=== PATIENT | male | born 1945 | race Caucasian/White ===

== ENCOUNTER 2020-12-13 04:26 | Inpatient (IN) | payer MEDICARE, SELFPAY ==
[2020-12-13] VITALS (15 sets, daily range): BP systolic 146–202; BP diastolic 73–110; PULSE 76–99; RESP 16–18; TEMP 36.7–37.1; O2SAT 96–99; BMI 30.6
--- NOTE | 2020-12-13 04:34 | XRR_ITS ---
PROCEDURE INFORMATION: Exam: XR Right Ankle Exam date and time: 12/13/2020 4:37 AM Age: 75 years old Clinical indication: Injury or trauma; Fall; Blunt trauma; Ankle; Right; Injury date: [id number] TECHNIQUE: Imaging protocol: XR Right ankle. Views: 3 or more views. COMPARISON: No relevant prior studies available. FINDINGS: Bones/joints: There is a trimalleolar fracture with mild lateral and medial component displacement. Soft tissues: There is diffuse soft tissue swelling. XR/XR ankle RT min 3V* [id number] IMPRESSION: Trimalleolar fracture.
--- NOTE | 2020-12-13 04:40 | CTR_ITS ---
PROCEDURE INFORMATION: Exam: CT Head Without Contrast Exam date and time: 12/13/2020 5:23 AM Age: 75 years old Clinical indication: Walking, difficulty and other: Weakness; Additional info: Fall TECHNIQUE: Imaging protocol: Computed tomography of the head without contrast. Radiation optimization: All CT scans at this facility use at least one of these dose optimization techniques: automated exposure control; mA and/or kV adjustment per patient size (includes targeted exams where dose is matched to clinical indication); or iterative reconstruction. COMPARISON: No relevant prior studies available. RADIATION DOSE METRICS: Total DLP (mGy-cm): 889.52 FINDINGS: Brain: There is no acute intracranial hemorrhage or mass effect. Mild diffuse volume loss is within the range of normal for patient age. There are small vessel ischemic changes within the periventricular and subcortical white matter, but the normal mancilla/white matter delineation is maintained. Chronic lacunar infarcts involve the basal ganglia. Cerebral ventricles: Prominence of the ventricular system is commensurate with volume loss. Bones/joints: Unremarkable. No acute fracture. Paranasal sinuses: Visualized sinuses are unremarkable. No fluid levels. Mastoid air cells: Visualized mastoid air cells are well aerated. Soft tissues: Unremarkable. CT/CT head wo con* [id number] IMPRESSION: No acute hemorrhage or calvarial fracture. Radiation Dose CTDIVOL = (mGy): DLP = 889.52 (mGy-cm)
--- NOTE | 2020-12-13 04:40 | XRR_ITS ---
PROCEDURE INFORMATION: Exam: XR Chest Exam date and time: 12/13/2020 5:23 AM Age: 75 years old Clinical indication: Chest pain; Type not specified; Additional info: Cp TECHNIQUE: Imaging protocol: XR of the chest Views: 1 view. COMPARISON: No relevant prior studies available. FINDINGS: Lungs: Unremarkable. No consolidation. Pleural spaces: Unremarkable. No pleural effusion. No pneumothorax. Heart/Mediastinum: There is mild cardiomegaly. Bones/joints: Unremarkable. XR/XR chest 1V portable [id number] IMPRESSION: No acute abnormality.
--- NOTE | 2020-12-13 04:41 | ECG_ITS ---
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1945 Requested By: Tonny Vick Order Number: [id number] Reading MD: MICHAEL RODRIGES Measurements Intervals Scalf Rate: 101 P: -36 KS: 252 QRS: 0 QRSD: 97 T: 61 QT: 336 QTc: 435 Interpretive Statements SINUS TACHYCARDIA WITH FIRST DEGREE AV BLOCK POSSIBLE LEFT ATRIAL ENLARGEMENT [-0.1mV P WAVE IN V1/V2] SEPTAL MYOCARDIAL INFARCTION , OF INDETERMINATE AGE [40+ ms Q WAVE IN V1/V2] No previous ECG available for comparison Electronically Signed On 12-13-2020 19:58:40 ANALYTICAL TECH by MICHAEL RODRIGES [email or web address]
--- NOTE | 2020-12-13 04:56 | ED_ITS ---
HPI - Extremity Problem General: Chief complaint: Extremity Injury, Lower Stated complaint: ANKLE PAIN Time Seen by Provider: 12/13/20 04:34 Source: patient and EMS Mode of arrival: EMS Limitations: no limitations History of Present Illness: HPI Narrative: 75-year-old male who states he was laying in bed and just woke up. He states when he woke up he had weakness in both arms and legs and felt like he could not move. States this lasted roughly 15 to 30 minutes and he started to be able to move. He states he then got out of bed and twisted his ankle and fell. He states he crawled into the living room and called EMS. Patient does have tenderness and swelling to his right ankle. He states he feels improved currently is able to move all his extremities. He was recently diagnosed with high blood pressure and has not taken his meds this morning and his blood pressure is elevated here. Dates pain in his ankle he rates a 5 out of 10. Patient went to bed at 9 and states he woke up with the symptoms Associated symptoms: Deny chest pain, fever(s) or rash Review of Systems Const: Denies: fever(s), chills, body aches or change in appetite Eyes: Denies: blurry vision or eye discomfort ENMT: Denies: throat pain or dental pain Card: Denies: chest pain Resp: Denies: dyspnea GI: Denies: abdominal pain, nausea, vomiting or diarrhea : Denies: dysuria Musc: Reports: extremity pain; Denies: neck pain or back pain Skin/Breast: Denies: rash Neuro: Reports: weakness in extremities; Denies: headache(s) Psych: Denies: depression Stanley/Lymph: Denies: easy bruising All/Imm: Denies: urticaria Physical Exam Const: COMMON NORMALS: no acute distress, patient oriented x3, healthy appearing and alert ORIENTATION/CONSCIOUSNESS: Yes oriented to person, Yes oriented to place and Yes oriented to time HENMT: COMMON NORMALS: normocephalic and atraumatic HEAD & SCALP: normocephalic and atraumatic Eye: COMMON NORMALS: Equal, round and reactive pupils present and EOMs intact bilaterally PUPIL: Yes Equal, round and reactive pupils present Neck/C-Spine: COMMON NORMALS: full ROM and supple Chest: COMMONS NORMALS: normal inspection of the chest and normal palpation of entire chest wall Resp: COMMON NORMALS: normal respiratory effort, No retractions, No use of accessory muscles and clear to auscultation bilaterally AUSCULTATION: clear to auscultation bilaterally Cardio: COMMON NORMALS: regular rate, regular rhythm and No murmurs present (Cardio) RATE: regular rate RHYTHM: regular rhythm GI: COMMON NORMALS: Normal to inspection, nondistended, normoactive bowel sounds present, Soft to palpation, non-tender and no masses PALPATION: Yes Soft to palpation Extremity: COMMON NORMALS: normal to inspection and full ROM OTHER: Tenderness and swelling to right ankle distal pulses are intact. Neuro: COMMON NORMALS: patient oriented x3, moves all extremities and no focal motor deficits SENSORIUM/ORIENTATION: Yes alert, Yes oriented to person, Yes oriented to place and Yes oriented to time CRANIAL NERVES: Yes CN normal except as noted SPEECH: speech normal MOTOR EXAM: 5/5 motor strength present throughout Psych: COMMON NORMALS: mental status grossly normal, Normal thought process present and cooperative THOUGHT PROCESS: Normal thought process present Skin: COMMON NORMALS: no rashes or lesions noted and no wounds GENERAL SKIN EXAM: no rashes or lesions noted Course Vital Signs: Vital signs: Vital Signs Temperature 98.2 F 12/13/20 04:31 Pulse Rate 81 12/13/20 05:12 Respiratory Rate 16 12/13/20 05:12 Blood Pressure 165/89 12/13/20 05:12 Pulse Oximetry 99 12/13/20 05:12 MDM - Extremity (Nontraumatic) MDM Narrative: Medical decision making narrative: Patient presents here with weakness along with high blood pressure also fall with an ankle fracture. Patient states anytime he tries to stand he gets very weak. Patient's last known normal was 9 PM is a 20 went to bed he woke up with the symptoms. He is not a TPA candidate due to that. His CT of his head is normal. He did fracture his ankle. I spoke to hospitalist will admit. Lab Data: Labs: Lab Results 12/13/20 12/13/20 Range/Units 05:00 05:00 WBC 10.9 H (4.0-10.0) 10^3/ uL RBC 5.07 (4.1-5.3) 10^6/u L Hgb 15.3 (11.7-16.6) g/dL Hct 44.7 (42.0-52.0) % MCV 88.2 (80-94) fL MCH 30.2 (28.0-34.0) pg MCHC 34.2 (30.0-36.0) g/dL RDW 12.7 (12.1-15.1) % Plt Count 261 (130-400) 10^3/c mm MPV 10.8 H (7.4-10.4) fL Neut % (Auto) 80.9 % Lymph % (Auto) 13.0 % [place] % (Auto) 5.3 % Eos % (Auto) 0.2 % Baso % (Auto) 0.2 % Neut # (Auto) 8.81 H (1.8-7.7) 10^3/u L Lymph # (Auto) 1.4 (0.8-4.8) 10^3/u L [place] # (Auto) 0.6 (0.2-0.9) 10^3/u L Eos # (Auto) 0.0 (0.0-0.8) 10^3/u L Baso # (Auto) 0.0 (0.0-0.1) 10^3/u L Nucleated RBC % (a uto) 0 % Nucleated RBCs # 0.0 /100WBC Sodium 134 L (136-145) mmol/L Potassium 3.7 (3.5-5.1) mmol/L Chloride 95 L (98-107) mmol/L Carbon Dioxide 28 (22-29) mmol/L Anion Gap 14.7 (5-19) BUN 13 (8-23) mg/dL Creatinine 1.1 (0.7-1.2) mg/dL GFR Calculation Not Reportable Glucose 213 H (65-115) mg/dL Calculated Osmolal ity 284 L (285-295) mOsm/k g Calcium 9.7 (8.5-10.5) mg/dL Total Bilirubin 0.6 (0.15-1.2) mg/dL AST 21 (0-40) U/L ALT 11 (0-41) U/L Alkaline Phosphata se 86 (40-130) IU/L Total Protein 7.8 (6.6-8.7) g/dL Albumin 4.4 (3.5-5.2) g/dL Globulin 3.4 (1.3-4.6) g/dL Imaging Data^: CT Head: Attestation: I personally reviewed and interpreted this imaging study as follows: Radiologist's impression: [employer] [address] [address] Scan Report Signed Patient: Charles Mendoza Unit #: [id number] : 1945 Age/Sex: 75 / M ADM Date: 12/13/20 Loc: ER Room/Bed: Attending Dr: Ordering Provider/Ordering MD: Tonny Vick MD Date of Service: 12/13/20 Procedure(s): CT head wo con* [id number] Accession Number(s): [id number] Report Number: [id number] PROCEDURE INFORMATION: Exam: CT Head Without Contrast Exam date and time: 12/13/2020 5:23 AM Age: 75 years old Clinical indication: Walking, difficulty and other: Weakness; Additional info: Fall TECHNIQUE: Imaging protocol: Computed tomography of the head without contrast. Radiation optimization: All CT scans at this facility use at least one of these dose optimization techniques: automated exposure control; mA and/or kV adjustment per patient size (includes targeted exams where dose is matched to clinical indication); or iterative reconstruction. COMPARISON: No relevant prior studies available. RADIATION DOSE METRICS: Total DLP (mGy-cm): 889.52 FINDINGS: Brain: There is no acute intracranial hemorrhage or mass effect. Mild diffuse volume loss is within the range of normal for patient age. There are small vessel ischemic changes within the periventricular and subcortical white matter, but the normal mancilla/white matter delineation is maintained. Chronic lacunar infarcts involve the basal ganglia. Cerebral ventricles: Prominence of the ventricular system is commensurate with volume loss. Bones/joints: Unremarkable. No acute fracture. Paranasal sinuses: Visualized sinuses are unremarkable. No fluid levels. Mastoid air cells: Visualized mastoid air cells are well aerated. Soft tissues: Unremarkable. CT/CT head wo con* [id number] IMPRESSION: No acute hemorrhage or calvarial fracture. 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
[2020-12-13] MEDS: labetalol 5 mg/mL SDV 20mL 10 MG IVP (04:57)
[2020-12-13 05:16] LABS: Basophils % 0.2 %; Eosinophils % 0.2 %; Hematocrit 44.7 % (42.0-52.0); Hemoglobin 15.3 g/dL (11.7-16.6); Lymphocytes # 1.4 10^3/uL (0.8-4.8); Mean Corpuscular HGB Conc 34.2 g/dL (30.0-36.0); Mean Corpuscular Hemoglobin 30.2 pg (28.0-34.0); Mean Corpuscular Volume 88.2 fL (80-94); Mean Platelet Volume 10.8 fL (7.4-10.4); Monocytes # 0.6 10^3/uL (0.2-0.9); Monocytes % 5.3 %; Neutrophils # 8.81 10^3/uL (1.8-7.7); Neutrophils % 80.9 %; Nucleated Red Blood Cells % 0 %; Platelet Count 261 10^3/cmm (130-400); Red Blood Count 5.07 10^6/uL (4.1-5.3); Red Cell Distribution Width 12.7 % (12.1-15.1); White Blood Count 10.9 10^3/uL (4.0-10.0)
[2020-12-13 05:41] LABS: Alanine Aminotransferase 11 U/L (0-41); Albumin Level 4.4 g/dL (3.5-5.2); Alkaline Phosphatase 86 IU/L (40-130); Anion Gap 14.7 (5-19); Aspartate Amino Transferase 21 U/L (0-40); Blood Urea Nitrogen 13 mg/dL (8-23); Calcium 9.7 mg/dL (8.5-10.5); Carbon Dioxide 28 mmol/L (22-29); Chloride 95 mmol/L (98-107); Creatinine Clr Calc Pharmacy 87.0668; Globulin 3.4 g/dL (1.3-4.6); Glucose 213 mg/dL (65-115); Osmolality Calculated 284 mOsm/kg (285-295); Potassium 3.7 mmol/L (3.5-5.1); Sodium 134 mmol/L (136-145); Total Bilirubin 0.6 mg/dL (0.15-1.2); Total Protein 7.8 g/dL (6.6-8.7)
--- NOTE | 2020-12-13 06:34 | P.HP_ITS ---
Providers/Chief Complaint Primary Care Provider: Kimani Durant Chief Complaint: ANKLE PAIN History of Present Illness Charles Mendoza is a 75 year old male who only has past medical history hypertension and diabetes, was recently started on losartan and Metformin presented today with chief complaint of right ankle pain. Patient is stating that he went to bed around 9 PM and around 1030PM when he wanted to get up to go to the bathroom he felt very weak and just could not get up, he struggled for quite a while and finally got up and twisted his ankle, he could not bear weight on his legs and fell on the ground. He started crawling and finally gave up because of extreme weakness. He was awake alert did not experience any syncopal event, he regained his strength by the time he arrived in the ER but not totally back to baseline. He is denying chest pain, shortness of breath, fever, nausea, vomiting, diarrhea, excruciating back pain, urinary incontinence, bladder incontinence. Diagnosis in the ER revealed hypertension, right ankle fracture, Dr. 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 however gait was not tested, proximal muscles were not tested, no acute neurological deficit CT head unremarkable, will request CTA head and neck Review of Systems Const: Denies: fever(s) Eyes: Denies: change in vision ENMT: Denies: throat pain Card: Denies: chest pain Resp: Denies: dyspnea GI: Denies: abdominal pain : Denies: flank pain Musc: Reports: extremity pain, joint pain, joint swelling, joint stiffness and muscle cramps; Denies: neck pain Skin/Breast: Denies: lesions Neuro: Reports: difficulty walking; Denies: headache(s) Psych: Denies: anxiety Endo: Denies: polyuria Stanley/Lymph: Denies: easy bruising All/Imm: Denies: urticaria Medications/Allergies Allergies Allergy/AdvReac Type Severity Reaction Status Date / Time steroids Allergy ADR-Hyperte Uncoded 12/13/20 04:43 nsion PFSH Acute PFSH: Medical History (Updated 12/13/20 @ 06:35 by Radhames Salazar MD) Diabetes Hypertension Surgical History (Updated 12/13/20 @ 06:35 by Radhames Salazar MD) No pertinent past surgical history Family History (Updated 12/13/20 @ 06:35 by Radhames Salazar MD) Denies family history of Chronic kidney disease (CKD) Cancer Social History (Updated 12/13/20 @ 06:35 by Radhames Salazar MD) Smoking and tobacco status: never smoked Alcohol intake: never Substance/Drug Use: never Lives independently: Yes Household members: spouse Housing: House Vitals/I&O/Wt Last Vital Signs Temp 98.2 F 12/13/20 04:31 Pulse 83 12/13/20 06:00 Resp 17 12/13/20 06:00 BP 184/98 12/13/20 06:00 Pulse Ox 98 12/13/20 06:00 Weight last 48 hrs Weight 120.202 kg Physical Exam Narrative: EXAM NARRATIVE: Pleasant elderly male Was laying comfortably in his bed when entered the room NIH score 0 No neurological deficit EOMI, PERRLA Good motor strength of upper and lower extremities, gait was not tested, proximal muscle not tested S1, S2 sinus rhythm no murmur appreciated no signs of heart failure Distended abdomen, umbilical hernia nontender central obesity Right ankle has been covered with compression dressing No vascular compromise, No sensory changes of medial side of his thighs Data : 12/13/20 05:00 12/13/20 05:00 A&P Assessment and plan (1) Ankle fracture: After sustaining a fall at home Dr. Islas consulted He will need lower extremity splinting to avoid edema however no active vascular compromise Status: Acute Qualifiers: Encounter type: initial encounter Fracture type: closed Laterality: right Qualified Code(s): S82.891A - Other fracture of right lower leg, initial encounter for closed fracture (2) TIA (transient ischemic attack): Patient sustained a fall and complaining of weakness which has resolved at the time of my evaluation NIH 0 CT head unremarkable EKG showing sinus rhythm Hypertensive and diabetic recently started medications losartan and Metformin I do suspect lacunar infarct and TIA We will start him on aspirin, Plavix and high-dose statins We will request CTA head and neck Physical therapy evaluation No signs of A. fib on EKG No previous history of stroke, Status: Acute (3) Hypertension: We will continue losartan Status: Acute (4) Fall: Status: Acute Qualifiers: Encounter type: initial encounter Qualified Code(s): W19.XXXA - Unsp ecified fall, initial encounter (5) Weakness: Status: Acute Additional A&P Information For type 2 diabetes I will start him on insulin and moderate sliding scale check A1c level Consistent carb diet DVT prophylaxis SCDs, start anticoagulation if no surgical intervention needed Full code Attestations Medical Necessity Statement*: Anticipating stay in the hospital course more than 2 midnights for management of right ankle fracture Time Spent in Patient Care: (>than 50% of time spent in counselling and/or direct pt care on unit) . 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
--- NOTE | 2020-12-13 07:48 | W.ED.EXTPRO ---
HPI - Extremity Problem General: Chief complaint: Extremity Injury, Lower Stated complaint: ANKLE PAIN Time Seen by Provider: 12/13/20 04:34 Source: patient and EMS Mode of arrival: EMS Limitations: no limitations History of Present Illness: HPI Narrative: Patient is a pleasant 75-year-old male who fell and twisted his right ankle last night at home, complains of weakness and difficulty standing up when he fell. Patient is recently diagnosed with diabetes. Associated symptoms: Deny chest pain or fever(s) Review of Systems Const: Denies: fever(s), chills or fatigue Eyes: Denies: change in vision Card: Reports: swelling of feet/ankles; Denies: chest pain or palpitations Resp: Denies: dyspnea GI: Denies: abdominal pain, nausea, vomiting, diarrhea or constipation Musc: Reports: extremity pain Skin/Breast: Denies: changes in skin color Neuro: Reports: difficulty walking; Denies: numbness in extremities PFSH ED PFSH: Medical History (Updated 12/13/20 @ 06:35 by Radhames Salazar MD) Diabetes Hypertension Surgical History (Updated 12/13/20 @ 06:35 by Radhames Salazar MD) No pertinent past surgical history Family History (Updated 12/13/20 @ 06:35 by Radhames Salazar MD) Denies family history of Chronic kidney disease (CKD) Cancer Social History (Updated 12/13/20 @ 06:35 by Radhames Salazar MD) Smoking and tobacco status: never smoked Alcohol intake: never Substance/Drug Use: never Lives independently: Yes Household members: spouse Housing: House Physical Exam Narrative: EXAM NARRATIVE: GENERAL: Patient is alert and oriented ?3 and in no acute distress. The following is a focused [] lower extremity exam. [] VASCULAR: Dorsalis pedis [] posterior tibial arteries []. Capillary refill time less than [] seconds to the distal hallux bilaterally. Calf is supple and nontender proximally and distally. [] NEUROLOGICAL: Protective sensation intact [] sites, tested with [place] monofilament to bilateral feet. [] DERMATOLOGICAL: [] MUSCULOSKELETAL: [] Const: COMMON NORMALS: no acute distress, patient oriented x3 and alert HENMT: COMMON NORMALS: normocephalic HEAD & SCALP: normocephalic Eye: COMMON NORMALS: Equal, round and reactive pupils present, EOMs intact bilaterally and conjunctivae normal CONJUNCTIVA: Yes conjunctivae normal PUPIL: Yes Equal, round and reactive pupils present Chest: CHEST: Yes Symmetrical chest wall rise Resp: COMMON NORMALS: normal respiratory effort, No use of accessory muscles and clear to auscultation bilaterally EFFORT & INSPECTION: Yes able to speak in complete sentences and Yes symmetric chest movement AUSCULTATION: clear to auscultation bilaterally Cardio: COMMON NORMALS: regular rate, regular rhythm, No murmurs present (Cardio) and Peripheral pulses 2+ throughout RATE: regular rate RHYTHM: regular rhythm PERIPHERAL PULSES: Peripheral pulses 2+ throughout Extremity: COMMON NORMALS: capillary refill normal, no calf tenderness and no pedal edema (Focal edema right ankle medial and lateral malleolus) GENERAL: Yes edema RIGHT LOWER EXTREMITY: Yes foot & digits (Tenderness to palpation at right distal fibula, tenderness to palpation at medial malleolus. No pain to palpation along the course of the Achilles tendon or calcaneus. No acute dislocation or gross deformity appreciated. No pain with effl-rt-veks compression of the right leg. No pain to palpation across the Lisfranc joint or fifth metatarsal base.) Neuro: COMMON NORMALS: patient oriented x3 SENSORIUM/ORIENTATION: Yes alert OTHER: Protective sensation intact to light touch of the right foot. Psych: COMMON NORMALS: mental status grossly normal and cooperative Skin: COMMON NORMALS: no wounds NARRATIVE SKIN EXAM: Ecchymosis at the medial lateral malleolus right ankle. No fracture blisters present. GENERAL SKIN EXAM: no erythema TRAUMA: no lacerations HAIR: general thinning Course Vital Signs: Vital signs: Vital Signs Temperature 98.2 F 12/13/20 04:31 Pulse Rate 76 12/13/20 06:43 Respiratory Rate 17 12/13/20 06:43 Blood Pressure 185/105 12/13/20 06:43 Pulse Oximetry 99 12/13/20 06:43 MDM - Extremity (Nontraumatic) Lab Data: Labs: Lab Results 12/13/20 12/13/20 Range/Units 05:00 05:00 WBC 10.9 H (4.0-10.0) 10^3/ uL RBC 5.07 (4.1-5.3) 10^6/u L Hgb 15.3 (11.7-16.6) g/dL Hct 44.7 (42.0-52.0) % MCV 88.2 (80-94) fL MCH 30.2 (28.0-34.0) pg MCHC 34.2 (30.0-36.0) g/dL RDW 12.7 (12.1-15.1) % Plt Count 261 (130-400) 10^3/c mm MPV 10.8 H (7.4-10.4) fL Neut % (Auto) 80.9 % Lymph % (Auto) 13.0 % [place] % (Auto) 5.3 % Eos % (Auto) 0.2 % Baso % (Auto) 0.2 % Neut # (Auto) 8.81 H (1.8-7.7) 10^3/u L Lymph # (Auto) 1.4 (0.8-4.8) 10^3/u L [place] # (Auto) 0.6 (0.2-0.9) 10^3/u L Eos # (Auto) 0.0 (0.0-0.8) 10^3/u L Baso # (Auto) 0.0 (0.0-0.1) 10^3/u L Nucleated RBC % (a uto) 0 % Nucleated RBCs # 0.0 /100WBC Sodium 134 L (136-145) mmol/L Potassium 3.7 (3.5-5.1) mmol/L Chloride 95 L (98-107) mmol/L Carbon Dioxide 28 (22-29) mmol/L Anion Gap 14.7 (5-19) BUN 13 (8-23) mg/dL Creatinine 1.1 (0.7-1.2) mg/dL GFR Calculation Not Reportable Glucose 213 H (65-115) mg/dL Calculated Osmolal ity 284 L (285-295) mOsm/k g Calcium 9.7 (8.5-10.5) mg/dL Total Bilirubin 0.6 (0.15-1.2) mg/dL AST 21 (0-40) U/L ALT 11 (0-41) U/L Alkaline Phosphata se 86 (40-130) IU/L Total Protein 7.8 (6.6-8.7) g/dL Albumin 4.4 (3.5-5.2) g/dL Globulin 3.4 (1.3-4.6) g/dL Discharge Plan Discharge Patient Disposition: Admitted As Inpatient Clinical Impression: Weakness, Hypertension Ankle fracture Qualifiers: Encounter type: initial encounter Fracture type: closed Laterality: right Qualified Code(s): S82.891A - Other fracture of right lower leg, initial encounter for closed fracture Fall Qualifiers: Encounter type: initial encounter Qualified Code(s): W19.XXXA - Unspecified fall, initial encounter Condition: Stable Coding 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
--- NOTE | 2020-12-13 08:46 | USCV_ITS ---
Kelly Charles Age: 75 Gender: M : 1945 Exam Date: 12/13/2020 14:00 Ordering Phys: Radhames Salazar MD Technologist: Julieta Terrell Exam Location: [facility] [place]ication: TIA Risk Factors: Previous Vascular Surgery: Right Brachial BP: / Left Brachial BP: / Right Left Velocity (cm/s) Spectral Plaque Velocity (cm/s) Spectral Plaque Syst/Diast Broadening Syst/Diast Broadening 123.60/17.10 Prox CCA 150.70/ 17.10 111.70/12.90 Mid CCA 90.40 / 12.10 96.70/ 12.40 Distal CCA 77.20 / 12.10 65.30/ 11.30 Prox ICA 110.30/ 24.30 64.30/ 20.40 Mid ICA 111.60/ 21.60 65.80/ 19.70 Distal ICA 81.30 / 24.60 175.90 ECA 137.25 0.53 ICA/CCA 0.74 Not Vertebral Antegrade Visualized / cm/s 58.20/ 15.20 cm/s Tri Subclavian Tri 138.0 167.8 0 0 FINDINGS Comparison: none available. Minimal bilateral, intimal thickening with no elevation of velocity. No significant elevation of systolic or diastolic carotid velocities. Nonvisualization of the right vertebral artery. Mild elevation of velocity in the right subclavian artery. CONCLUSIONS Bilateral ICA stenosis less than 50%. Mild right subclavian stenosis. Dr. Genesis Chaney DO (Electronically Signed) Final Date: 13 December 2020 14:37 S
--- NOTE | 2020-12-13 09:38 | PC.NURSE ---
patient received from ER with splint in place to R ankle. Pedal pulse unable to be palpated or heard with doppler. His foot is warn, he can wiggle his toes and his cap refill is <3sec. Dr. Moore notified and message left for Dr. Islas at this time. no pain reported by patient at this time.
[2020-12-13 10:04] LABS: Glucose Point of Care 223 mg/dL (70-110)
[2020-12-13] MEDS: atorvastatin 40 mg Tablet 80 MG PO (10:16)
[2020-12-13] MEDS: losartan 50 mg Tablet PO (10:16)
[2020-12-13] MEDS: aspirin 81 mg EC Tablet PO (10:16)
[2020-12-13] MEDS: clopidogrel 75 mg Tablet PO (10:19)
[2020-12-13] MEDS: HYDROcodone-acetaminophen 5-325 mg Tablet 1 TAB PO ×2 (11:17→18:07)
--- NOTE | 2020-12-13 12:48 | P.CONIM_ITS ---
Providers/Reason For Consult Consulting Physican/Specialty*: Maxwell Islas D.P.M. Reason for Consult*: Right trimalleolar ankle fracture Attending Physician: Emeka Moore MD Primary Care Provider: Kimani Durant History of Present Illness History of Present Illness Patient is a pleasant 75-year-old male who fell and twisted his right ankle last night at home, complains of weakness and difficulty standing up when he fell. Patient is recently diagnosed with diabetes. Is taking hydrocodone for pain states it is well controlled. Patient states over the course of this morning he has felt some strength return. He lives by himself in a home in [facility]. Patient denies any subjective nausea, vomiting, fever, chills, shortness of breath or chest pain. Review of Systems Const: Denies: fever(s), chills or fatigue Eyes: Denies: change in vision Card: Reports: swelling of feet/ankles; Denies: chest pain or palpitations Resp: Denies: dyspnea GI: Denies: abdominal pain, nausea, vomiting, diarrhea or constipation Musc: Reports: extremity pain Skin/Breast: Denies: changes in skin color Neuro: Reports: difficulty walking; Denies: numbness in extremities Meds/Allergies Home Medications and Allergies Allergies Allergy/AdvReac Type Severity Reaction Status Date / Time steroids Allergy ADR-Hyperte Uncoded 12/13/20 04:43 nsion Current Medications Current Medications Generic Name Dose Route Start Last Admin Trade Name Freq PRN Reason Stop Dose Admin Hydrocodone Bitart/Acetaminophen 1 tab 12/13/20 11:05 12/13/20 11:17 Hydrocodone-Acetaminophen 5-325 Mg Tablet PO 1 tab Q6H PRN Administration MODERATE PAIN Aspirin 81 mg 12/13/20 09:00 12/13/20 10:16 Aspirin 81 Mg Ec Tablet PO 81 mg DAILY MARTHA Administration Atorvastatin Calcium 80 mg 12/13/20 09:00 12/13/20 10:16 Atorvastatin 40 Mg Tablet PO 80 mg DAILY MARTHA Administration Clopidogrel Bisulfate 75 mg 12/13/20 09:00 12/13/20 10:19 Clopidogrel 75 Mg Tablet PO 75 mg DAILY MARTHA Administration Insulin Aspart 0 unit 12/13/20 08:46 12/13/20 11:15 Insulin Aspart 100 Unit/1 Ml SUBCUT Not Given WM&BEDTIME MARTHA Protocol Losartan Potassium 50 mg 12/13/20 09:00 12/13/20 10:16 Losartan 50 Mg Tablet PO 50 mg DAILY MARTHA Administration PFSH Acute PFSH: Medical History (Updated 12/13/20 @ 12:56 by Maxwell Islas DPM) Diabetes Hypertension Surgical History (Updated 12/13/20 @ 06:35 by Radhames Salazar MD) No pertinent past surgical history Family History (Updated 12/13/20 @ 06:35 by Radhames Salazar MD) Denies family history of Chronic kidney disease (CKD) Cancer Social History (Updated 12/13/20 @ 06:35 by Radhames Salazar MD) Smoking and tobacco status: never smoked Alcohol intake: never Substance/Drug Use: never Lives independently: Yes Household members: spouse Housing: House Vitals/I&O/Wt Last Vital Signs Temp 98.8 F 12/13/20 10:57 Pulse 91 12/13/20 10:57 Resp 17 12/13/20 10:57 BP 173/91 12/13/20 12:00 Pulse Ox 97 12/13/20 10:57 12/12/20 12/13/20 12/13/20 22:59 06:59 14:59 Output Total 300 / 300 Balance -300 / -300 Weight last 48 hrs Weight 265 lb Physical Exam Const: COMMON NORMALS: no acute distress, patient oriented x3 and alert HENMT: COMMON NORMALS: normocephalic HEAD & SCALP: normocephalic Eye: COMMON NORMALS: Equal, round and reactive pupils present, EOMs intact bilaterally and conjunctivae normal CONJUNCTIVA: Yes conjunctivae normal PUPIL: Yes Equal, round and reactive pupils present Chest: CHEST: Yes Symmetrical chest wall rise Resp: COMMON NORMALS: normal respiratory effort, No use of accessory muscles and clear to auscultation bilaterally EFFORT & INSPECTION: Yes able to speak in complete sentences and Yes symmetric chest movement AUSCULTATION: clear to auscultation bilaterally Cardio: COMMON NORMALS: regular rate, regular rhythm and No murmurs present (Cardio) RATE: regular rate RHYTHM: regular rhythm PERIPHERAL PULSES: other (Dorsalis pedis and posterior tibial arteries demonstrate triphasic signal) Extremity: COMMON NORMALS: capillary refill normal, no calf tenderness and no pedal edema (Focal edema right ankle medial and lateral malleolus) GENERAL: Yes edema RIGHT LOWER EXTREMITY: Yes foot & digits (Tenderness to palpation at right distal fibula, tenderness to palpation at medial malleolus. No pain to palpation along the course of the Achilles tendon or calcaneus. No acute dislocation or gross deformity appreciated. No pain with [id number] compression of the right leg. No pain to palpation across the Lisfranc joint or fifth metatarsal base.) Neuro: COMMON NORMALS: patient oriented x3 SENSORIUM/ORIENTATION: Yes alert Psych: COMMON NORMALS: mental status grossly normal and cooperative Skin: COMMON NORMALS: no wounds GENERAL SKIN EXAM: no erythema TRAUMA: no lacerations HAIR: general thinning A&P Assessment and plan (1) Trimalleolar fracture of right ankle: Status: Acute Qualifiers: Encounter type: initial encounter Fracture type: closed Qualified Co de(s): S82.851A - Displaced trimalleolar fracture of right lower leg, initial encounter for closed fracture Patient examined and evaluated, findings and treatment options were discussed with patient at length. He has a right trimalleolar ankle fracture, Jovi Evans B fracture and displaced transverse fracture at the medial malleolus. On the lateral view there is a nondisplaced fracture at the posterior malleolus involves less than 10% of the ankle mortise. Explained the patient the his right ankle fracture is unstable and would be best managed with open reduction and internal fixation. Risks include pain, bleeding, numbness, infection, hardware failure, hardware rotation, delayed union, malunion and nonunion. Also risk for DVT, PE, heart attack and stroke. Patient is to remain strict nonweightbearing to the right lower extremity and elevate his right foot at all times while at rest. Will perform Covid screening with plans for surgical intervention likely during this hospitalization, will entail open reduction internal fixation right trimalleolar ankle fracture. Consult Attestations Medical Necessity Statement: Right bimalleolar ankle fracture Coding Level of Care Code Acute Warp Preparer for [facility] Fwd Exam Comprehensive Diagnoses Trimalleolar fracture of right ankle S82.851A Encounter type: initial encounter Fracture type: closed
--- NOTE | 2020-12-13 13:04 | PC.NURSE ---
verbal order received from Dr. Moore to bladder scan patient. 271mL noted to be in bladder at that time, patient has voided multiple times today around 150ml each time. urine sample was collected clean catch,Dr. Moore notified of results of bladder scan, no new orders at this time .
[2020-12-13 13:17] LABS: Estmated Average Glucose 220; Hemoglobin A1C 9.3 % (4.0-6.0)
[2020-12-13 13:27] LABS: Add Urine Microscopic? NO
[2020-12-13 13:45] LABS: Bilirubin Urine Neg (Negative); Blood Urine Neg (Negative); Glucose Urine UA 4+ (Normal); Ketones Urine Negative (Negative); Leukocyte Esterase Urine Negative (Negative); Nitrate Urine Negative (Negative); Protein Urine Neg (Negative); Specific Gravity, Urine 1.015 (1.005-1.030); Sulfosalicylic Acid Urine Negative (Negative); Urine Appearance Clear (CLEAR); Urine Color Yellow (Yellow); Urobilinogen Urine Norm (Negative); pH Urine 8 (5-7)
--- NOTE | 2020-12-13 15:58 | PC.NURSE ---
patient swabbed for covid-19 pre-procedure. He states he had covid last month Dr. Moore notified
[2020-12-13 16:44] LABS: Glucose Point of Care 256 mg/dL (70-110)
[2020-12-13 21:00] LABS: Glucose Point of Care 189 mg/dL (70-110)
[2020-12-14] VITALS (8 sets, daily range): BP systolic 111–184; BP diastolic 69–88; PULSE 80–94; RESP 16–18; TEMP 36.7–37.1; O2SAT 96–98
[2020-12-14] MEDS: HYDROcodone-acetaminophen 5-325 mg Tablet 1 TAB PO ×2 (00:33→14:35)
[2020-12-14 06:51] LABS: Glucose Point of Care 202 mg/dL (70-110)
[2020-12-14] MEDS: atorvastatin 40 mg Tablet 80 MG PO (08:57)
[2020-12-14] MEDS: clopidogrel 75 mg Tablet PO (08:57)
[2020-12-14] MEDS: aspirin 81 mg EC Tablet PO (08:57)
[2020-12-14] MEDS: losartan 50 mg Tablet PO (08:58)
[2020-12-14 10:41] LABS: Glucose Point of Care 178 mg/dL (70-110)
--- NOTE | 2020-12-14 12:30 | MR_ITS ---
WS: [id number] MRI BRAIN WITHOUT CONTRAST HISTORY: TIA COMPARISON: 12/13/2020 TECHNIQUE: Diffusion imaging, multiplanar T1, T2 and FLAIR imaging obtained. Moderate size acute infarct involving the supratentorial brain on the LEFT. LEFT parafalcine acute infarct within additional acute infarcts predominantly in the watershed distri bution between the anterior, middle and posterior cerebral artery distribution. No infarct on the RIG HT. Otherwise there is mild chronic microvascular ischemic disease in the white matter. Ventricles and extra-axial spaces are normal. No inferior displacement of cerebellar tonsils. The sella turcica and pituitary gland are unremarkabl e. Posterior fossa is also unremarkable. Dural venous sinuses and quileute of French demonstrate no abnormality on this unenhanced studies. Paranasal sinuses: Clear. Mastoid air cells: Normal. Calvarium and scalp: Intact. MR/MR head wo con* [id number] IMPRESSION: 1. Acute LEFT supratentorial ischemia along the watershed distributions betwee n the anterior, middle and posterior cerebral arteries. No hemorrhage. 2. Otherwise mild chronic microvascular ischemic changes which are chronic.
--- NOTE | 2020-12-14 12:42 | PM.PN ---
Subjective Subjective: Interval history: Patient denies any complaints. Denies shortness of breath or chest pain. He has been told several times yesterday and this morning not to bear weight on his right lower extremity. Surgery will be scheduled if not tomorrow then Saturday. Vitals/I&O/Wt Last Vital Signs Temp 98.1 F 12/14/20 11:07 Pulse 93 12/14/20 11:07 Resp 18 12/14/20 11:07 BP 155/88 12/14/20 11:07 Pulse Ox 98 12/14/20 11:07 12/13/20 12/14/20 12/14/20 22:59 06:59 14:59 Intake Total 840 / 840 200 / 1040 240 / 240 Output Total 300 / 600 200 / 800 Balance 540 / 240 0 / 240 240 / 240 Weight last 48 hrs Weight 120.202 kg Physical Exam Narrative: EXAM NARRATIVE: Clear lungs and regular heart. Right lower extremity is in cast/dressing. Abdomen is soft and nontender with positive bowel sounds. Data : 12/13/20 05:00 12/13/20 05:00 A&P Assessment and plan (1) Ankle fracture: After sustaining a fall at home Dr. Islas consulted He will need lower extremity splinting to avoid edema however no active vascular compromise Status: Acute Qualifiers: Encounter type: initial encounter Fracture type: closed Laterality: right Qualified Code(s): S82.891A - Other fracture of right lower leg, initial encounter for closed fracture (2) TIA (transient ischemic attack): Patient sustained a fall and complaining of weakness which has resolved at the time of my evaluation [facility] 0 CT head unremarkable EKG showing sinus rhythm Hypertensive and diabetic recently started medications losartan and Metformin I do suspect lacunar infarct and TIA We will start him on aspirin, Plavix and high-dose statins We will request CTA head and neck Physical therapy evaluation No signs of A. fib on EKG No previous history of stroke, Status: Acute (3) Hypertension: We will continue losartan Status: Acute (4) Fall: Status: Acute Qualifiers: Encounter type: initial encounter Qualified Code(s): W19.XXXA - Unspecified fall, initial encounter (5) Weakness: Status: Acute Additional A&P Information For type 2 diabetes I will start him on insulin and moderate sliding scale check A1c level Consistent carb diet DVT prophylaxis SCDs, start anticoagulation if no surgical intervention needed Full code PLAN: Discussed with Dr. Islas. Plan to proceed with surgery either tomorrow or Saturday. Continue current monitoring and treatment and add Flomax. Carotid artery ultrasound without significant findings. Will request echocardiogram. Awaiting MRI Attestations Medical Necessity Statement*: Patient with ankle fracture and is unable to ambulate requiring close inpatient monitoring and treatment including surgical intervention. Also requires evaluation for suspected TIA. Time Spent in Patient Care: 16 - 35 minutes Coding Level of Care Code Acute Health Information Technologist for [facility] Fwd Diagnoses Ankle fracture S82.891A Encounter type: initial encounter Fracture type: closed Laterality: right TIA (transient ischemic attack) G45.9 Hypertension I10 Fall W19.XXXA Encounter type: initial encounter Weakness R53.1
--- NOTE | 2020-12-14 12:46 | USCV_ITS ---
Charles Mendoza Age: 75 Gender: M : 1945 Exam Date: 12/14/2020 16:38 Ordering Phys: Emeka Moore MD Technologist: Anastacia Hernandez Exam Location: [facility] [place] Indication: DYSPNEA BP: 155 / 88 HR: 88 Rhythm: Sinus Technical Quality: Suboptimal MEASUREMENTS (Male / Female) Normal Values 2D ECHO LV Diastolic Diameter PLAX 3.1 cm 4.2 - 5.9 / 3.9 - 5.3 cm LV Systolic Diameter PLAX 2.0 cm IVS Diastolic Thickness 1.8 cm 0.6 - 1.0 / 0.6 - 0.9 cm IVS Systolic Thickness 1.9 cm LVPW Diastolic Thickness 1.6 cm 0.6 - 1.0 / 0.6 - 0.9 cm LVPW Systolic Thickness 2.1 cm LVOT Diameter 2.0 cm LV Ejection Fraction 2D Teich 65.7 % LV Ejection Fraction MOD 2C 56.2 % LV Ejection Fraction 2C AL 56.7 % LA Diameter 3.2 cm LA Width 4.3 cm LA Height 4.0 cm Aorta at Sinotubular Diameter 2.5 cm M-MODE LV Diastolic Diameter MM 4.8 cm 4.2 - 5.9 / 3.9 - 5.3 cm LV Systolic Diameter MM 2.6 cm LV Ejection Fraction MM Teich 77.8 % IVS Diastolic Thickness MM 1.6 cm 0.6 - 1.0 / 0.6 - 0.9 cm IVS Systolic Thickness MM 1.7 cm LVPW Diastolic Thickness MM 1.5 cm 0.6 - 1.0 / 0.6 - 0.9 cm LVPW Systolic Thickness MM 1.7 cm Aortic Annulus Diameter 3.2 cm LA Ao Ratio MM 1.0 MV E Point Septal Separation 0.6 cm DOPPLER AV Peak Velocity 151.0 cm/s LVOT Peak Velocity 122.7 cm/s AV Area Cont Eq vti 3.1 cm squared AV Area Cont Eq pk 2.6 cm squared TR Peak Velocity 188.7 cm/s TR Peak Gradient 14.2 mmHg Right Atrial Pressure 3.0 mmHg Pulmonary Artery Systolic Pressu 17.2 mmHg PV Peak Velocity 100.0 cm/s RV Acceleration Time 0.1 s RV Ejection Time 0.2 s RV AcT/ET 0.5 FINDINGS Left Ventricle Normal left ventricular cavity size. Increased left ventricular wall thickness. Normal left ventricular systolic function. Left ventricular ejection fraction is estimated at 60 %. Although no diagnostic regional wall motion abnormality could be identified, this possibility cannot be completely excluded based on the study. Right Ventricle Right ventricle not well visualized. Normal right ventricular size and systolic function, RVSP 17.2 mmHg. Right Atrium Right atrium not well visualized. Left Atrium Left atrium not well visualized. Probably mildly increased left atrial size. Mitral Valve Moderate mitral annular calcification. Thickened mitral valve. No mitral valve stenosis. Trace mitral valve regurgitation. Aortic Valve Thickened and calcified trileaflet aortic valve. No aortic valve stenosis. No aortic valve regurgitation. Tricuspid Valve Structurally normal tricuspid valve. Pulmonic Valve Pulmonic valve not well visualized. Pericardium No pericardial effusion. Aorta Normal-sized inferior vena cava. Normal-sized aortic root. CONCLUSIONS 1. This is a technically very difficult study with poor apical windows. 2. Normal left ventricular cavity size and systolic function. Mild concentric left ventricle hypertrophy. Left ventricular ejection fraction is estimated at 60 %. Although no diagnostic regional wall motion abnormality could be identified, this possibility cannot be completely excluded based on the study. 3. No significant valvular abnormality based on the study. 4. No prior similar studies to compare Mari Liao MD (Electronically Signed) Final Date: 15 December 2020 16:24 S
--- NOTE | 2020-12-14 14:26 | PC.NURSE ---
Patient not given 2 units of insulin due to MRI testing. Patient not in facility and when returned he did not eat lunch.
[2020-12-14] MEDS: tamsulosin 0.4 mg Capsule PO (14:33)
[2020-12-14 15:31] LABS: Coronavirus Test Green County Not Detected
[2020-12-14 16:40] LABS: Glucose Point of Care 174 mg/dL (70-110)
[2020-12-14] MEDS: HYDROcodone-acetaminophen 7.5-325 mg Tablet 1 TAB PO (18:11)
--- NOTE | 2020-12-14 20:14 | P.PN_ITS ---
Subjective Subjective: Interval history: Patient seen bedside this afternoon, states he has some tenderness at the right ankle. His life partner Isabel is present. Denies any other complaints. Patient denies any subjective nausea, vomiting, fever, chills, shortness of breath or chest pain. Vitals/I&O/Wt Last Vital Signs Temp 98.0 F 12/14/20 15:40 Pulse 92 12/14/20 15:40 Resp 18 12/14/20 15:40 BP 184/75 12/14/20 15:40 Pulse Ox 96 12/14/20 15:40 12/14/20 12/14/20 12/14/20 06:59 14:59 22:59 Intake Total 200 / 1040 240 / 240 240 / 480 Output Total 200 / 800 Balance 0 / 240 240 / 240 240 / 480 Weight last 48 hrs Weight 265 lb Physical Exam Const: COMMON NORMALS: no acute distress, patient oriented x3 and alert HENMT: COMMON NORMALS: normocephalic HEAD & SCALP: normocephalic Eye: COMMON NORMALS: Equal, round and reactive pupils present, EOMs intact bilaterally and conjunctivae normal CONJUNCTIVA: Yes conjunctivae normal PUPIL: Yes Equal, round and reactive pupils present Chest: CHEST: Yes Symmetrical chest wall rise Resp: COMMON NORMALS: normal respiratory effort, No use of accessory muscles and clear to auscultation bilaterally EFFORT & INSPECTION: Yes able to speak in complete sentences and Yes symmetric chest movement AUSCULTATION: clear to auscultation bilaterally Cardio: COMMON NORMALS: regular rate, regular rhythm and No murmurs present (Cardio) RATE: regular rate RHYTHM: regular rhythm PERIPHERAL PULSES: other (Dorsalis pedis and posterior tibial arteries demonstrate triphasic signal) Extremity: COMMON NORMALS: capillary refill normal, no calf tenderness and no pedal edema (Focal edema right ankle medial and lateral malleolus) GENERAL: Yes edema RIGHT LOWER EXTREMITY: Yes foot & digits (Tenderness to palpation at right distal fibula, tenderness to palpation at medial malleolus. No pain to palpation along the course of the Achilles tendon or calcaneus. No acute dislocation or gross deformity appreciated. No pain with [id number] compression of the right leg. No pain to palpation across the Lisfranc joint or fifth metatarsal base.) Neuro: COMMON NORMALS: patient oriented x3 SENSORIUM/ORIENTATION: Yes alert Psych: COMMON NORMALS: mental status grossly normal and cooperative Skin: COMMON NORMALS: no wounds GENERAL SKIN EXAM: no erythema TRAUMA: no lacerations HAIR: general thinning Data : 12/13/20 05:00 12/13/20 05:00 A&P Assessment and plan (1) Trimalleolar fracture of right ankle: Status: Acute Qualifiers: Encounter type: initial encounter Fracture type: closed Qualified Code(s): S82.851A - Displaced trimalleolar fracture of right lower leg, initial encounter for closed fracture Patient examined and evaluated, findings and treatment options were discussed with patient at length. He has a right trimalleolar ankle fracture, Jovi Evans B fracture and displaced transverse fracture at the medial malleolus. On the lateral view there is a nondisplaced fracture at the posterior malleolus involves less than 10% of the ankle mortise. Explained the patient the his right ankle fracture is unstable and would be best managed with open reduction and internal fixation. Risks include pain, bleeding, numbness, infection, hardware failure, hardware rotation, delayed union, malunion and nonunion. Also risk for DVT, PE, heart attack and stroke. -Covid screening negative -Patient is to remain strict nonweightbearing to the right lower extremity and elevate his right foot at all times while at rest. -Patient scheduled for ORIF right ankle 12/16/2020 at 7 AM. Attestations Medical Necessity Statement*: Right trimalleolar ankle fracture Coding Level of Care Code Acute Machinist Tool [employer] Die for [facility] Diagnoses Trimalleolar fracture of right ankle S82.851A Encounter type: initial encounter Fracture type: closed
[2020-12-14 20:47] LABS: Glucose Point of Care 216 mg/dL (70-110)
[2020-12-15] VITALS (7 sets, daily range): BP systolic 127–175; BP diastolic 62–93; PULSE 81–100; RESP 17–18; TEMP 36.4–36.8; O2SAT 94–98
[2020-12-15 02:33] LABS: Basophils % 0.1 %; Eosinophils # 0.1 10^3/uL (0.0-0.8); Eosinophils % 0.7 %; Hematocrit 40.8 % (42.0-52.0); Lymphocytes # 1.2 10^3/uL (0.8-4.8); Lymphocytes % 17.6 %; Mean Corpuscular HGB Conc 34.3 g/dL (30.0-36.0); Mean Corpuscular Hemoglobin 30.5 pg (28.0-34.0); Mean Corpuscular Volume 88.9 fL (80-94); Mean Platelet Volume 10.4 fL (7.4-10.4); Monocytes # 0.5 10^3/uL (0.2-0.9); Monocytes % 7.9 %; Neutrophils # 5.01 10^3/uL (1.8-7.7); Neutrophils % 73.4 %; Nucleated Red Blood Cells % 0 %; Platelet Count 237 10^3/cmm (130-400); Red Blood Count 4.59 10^6/uL (4.1-5.3); Red Cell Distribution Width 12.6 % (12.1-15.1); White Blood Count 6.8 10^3/uL (4.0-10.0)
[2020-12-15 02:46] LABS: Alanine Aminotransferase 8 U/L (0-41); Albumin Level 3.6 g/dL (3.5-5.2); Alkaline Phosphatase 76 IU/L (40-130); Anion Gap 13.1 (5-19); Aspartate Amino Transferase 16 U/L (0-40); Blood Urea Nitrogen 17 mg/dL (8-23); Calcium 8.8 mg/dL (8.5-10.5); Carbon Dioxide 24 mmol/L (22-29); Chloride 101 mmol/L (98-107); Globulin 3.2 g/dL (1.3-4.6); Glucose 178 mg/dL (65-115); Magnesium 1.9 mg/dL (1.7-2.3); Osmolality Calculated 284 mOsm/kg (285-295); Potassium 4.1 mmol/L (3.5-5.1); Sodium 134 mmol/L (136-145); Total Bilirubin 0.8 mg/dL (0.15-1.2); Total Protein 6.8 g/dL (6.6-8.7)
--- NOTE | 2020-12-15 02:57 | PC.NURSE ---
Report to Alec BENITEZ
[2020-12-15] MEDS: HYDROcodone-acetaminophen 7.5-325 mg Tablet 1 TAB PO ×3 (05:59→21:45)
[2020-12-15 06:40] LABS: Glucose Point of Care 189 mg/dL (70-110)
[2020-12-15] MEDS: tamsulosin 0.4 mg Capsule PO (09:26)
[2020-12-15] MEDS: aspirin 81 mg EC Tablet PO (09:26)
[2020-12-15] MEDS: losartan 50 mg Tablet PO (09:26)
[2020-12-15] MEDS: atorvastatin 40 mg Tablet 80 MG PO (09:26)
--- NOTE | 2020-12-15 10:47 | P.PN_ITS ---
Subjective Subjective: Interval history: Patient denies shortness of breath or chest pain. Denies any focal neurological complaints. His MRI showed left supratentorial ischemia along the watershed distribution between the anterior, medial and posterior cerebral arteries. Discussed with Dr. Chaney this morning this appears to be due to global underperfusion and felt unlikely to be secondary to multiple embolic phenomena's. I had extensive discussion with patient and it appears that he has been having longstanding hypertension but was not taking his medications because reports that most of them had side effects. He mentions that most of them caused him to be paranoid and anxious. Patient denies being depressed. He would self discontinue and not let his physician know to attempt different one. He saw a software reliability engineer before and because software reliability engineer did not take his concern for possible adverse reaction seriously he stopped seeing him. Reports that occasionally he would have his heart rate jumping to 100s but denies any heart palpitations. He just notices that it goes fast and does not think that it has been irregular previously. Echocardiogram currently pending. Patient's at bedside. Vitals/I&O/Wt Last Vital Signs Temp 97.8 F 12/15/20 08:00 Pulse 100 12/15/20 08:00 Resp 17 12/15/20 08:00 BP 169/92 12/15/20 09:26 Pulse Ox 94 12/15/20 08:00 12/14/20 12/15/20 12/15/20 22:59 06:59 14:59 Intake Total 440 / 680 240 / 240 Output Total 250 / 250 125 / 375 150 / 150 Balance 190 / 430 -125 / 305 90 / 90 Physical Exam Narrative: EXAM NARRATIVE: Clear lungs and regular heart. Right lower extremity is in cast/dressing. Abdomen is soft and nontender with positive bowel sounds. No focal neurological findings. He is strong in his both upper and lower extremities but right lower extremity evaluation is limited due to fracture. His hip flexors are strong bilaterally. He shows no evidence of cerebellar signs. He has good peripheral vision. Data : 12/15/20 02:14 12/15/20 02:14 A&P Assessment and plan (1) Ankle fracture: After sustaining a fall at home Dr. Islas consulted He will need lower extremity splinting to avoid edema however no active vascular compromise Status: Acute Qualifiers: Encounter type: initial encounter Fracture type: closed Laterality: right Qualified Code(s): S82.891A - Other fracture of right lower leg, initial encounter for closed fracture (2) TIA (transient ischemic attack): Patient sustained a fall and complaining of weakness which has resolved at the time of my evaluation [facility] 0 CT head unremarkable EKG showing sinus rhythm Hypertensive and diabetic recently started medications losartan and Metformin I do suspect lacunar infarct and TIA We will start him on aspirin, Plavix and high-dose statins We will request CTA head and neck Physical therapy evaluation No signs of A. fib on EKG No previous history of stroke, Status: Acute (3) Hypertension: We will continue losartan Status: Acute (4) Fall: Status: Acute Qualifiers: Encounter type: initial encounter Qualified Code(s): W19.XXXA - Unspecified fall, initial encounter (5) Weakness: Status: Acute Additional A&P Information For type 2 diabetes I will start him on insulin and moderate sliding scale check A1c level Consistent carb diet DVT prophylaxis SCDs, start anticoagulation if no surgical intervention needed Full code PLAN: Continue aspirin, Plavix and statin. Will monitor on telemetry. Discussed with patient to have outpatient event monitor after he is discharged. Will check troponin. Will give 1 dose Lovenox for DVT prophylaxis as surgery being postponed. Awaiting surgery tomorrow 10:15 Attestations Medical Necessity Statement*: Patient with cerebrovascular accident and ankle fracture requires close inpatient monitoring, treatment and evaluation. Time Spent in Patient Care: Greater than 35 minutes (>than 50% of time spent in counselling and/or direct pt care on unit) . Coding Level of Care Code Acute Claim Examiner for [facility] Diagnoses Ankle fracture S82.891A Encounter type: initial encounter Fracture type: closed Laterality: right TIA (transient ischemic attack) G45.9 Hypertension I10 Fall W19.XXXA Encounter type: initial encounter Weakness R53.1
--- NOTE | 2020-12-15 11:34 | ECG_ITS ---
[facility] Test Date: 2020-12-15 Pat Name: Charles Mendoza Department: Room: 263 Gender: Male Student Services Coordinator: : 1945 Requested By: Emeka Moore Order Number: [id number] Liza MD: Mari Laio M.D. Measurements Intervals [place] Rate: 81 P: 59 OR: 333 QRS: -6 QRSD: 106 T: 36 QT: 365 QTc: 425 Interpretive Statements SINUS RHYTHM WITH FIRST DEGREE AV BLOCK POSSIBLE INFERIOR MYOCARDIAL INFARCTION [30 ms Q WAVE IN II/aVF], PROBABLY OLD Compared to ECG 12/13/2020 04:48:07 Sinus tachycardia no longer present Myocardial infarct finding still present Electronically Signed On 12-15-2020 21:49:20 WARRANTY CLERK by Mari Liao M.D. [email or web address]
[2020-12-15 12:49] LABS: Glucose Point of Care 180 mg/dL (70-110)
[2020-12-15 13:55] LABS: Troponin(5th) Baseline 51 ng/L (0-15)
[2020-12-15] MEDS: enoxaparin 40 mg/0.4 mL Syringe SUBCUT (14:52)
[2020-12-15 16:52] LABS: Troponin 5 2HR 48.54 ng/L (0-15)
[2020-12-15 16:58] LABS: Troponin 5 2HR Delta -2.46 ABS# (0-10)
[2020-12-15 17:02] LABS: Glucose Point of Care 201 mg/dL (70-110)
[2020-12-15 21:23] LABS: Glucose Point of Care 184 mg/dL (70-110)
[2020-12-16] VITALS (19 sets, daily range): BP systolic 130–190; BP diastolic 65–92; PULSE 63–112; RESP 15–21; TEMP 36.5–36.9; O2SAT 95–100
--- NOTE | 2020-12-16 | SCC_ITS ---
Procedure Done: Open reduction internal fixation right trimalleolar ankle fracture CPT code 49142 28 seconds of fluoroscopic guidance, for a cumulative dose of 0.71 mGy, was provided to Dr. Islas by the radiology department. C-arm images of the RIGHT ankle were saved for the patient's permanent record. [facility]
[2020-12-16 02:56] LABS: Basophils % 0.4 %; Eosinophils # 0.1 10^3/uL (0.0-0.8); Eosinophils % 1.4 %; Hematocrit 40.2 % (42.0-52.0); Hemoglobin 13.5 g/dL (11.7-16.6); Lymphocytes # 1.3 10^3/uL (0.8-4.8); Lymphocytes % 26.5 %; Mean Corpuscular HGB Conc 33.6 g/dL (30.0-36.0); Mean Corpuscular Hemoglobin 29.9 pg (28.0-34.0); Mean Corpuscular Volume 88.9 fL (80-94); Mean Platelet Volume 10.5 fL (7.4-10.4); Monocytes # 0.6 10^3/uL (0.2-0.9); Monocytes % 11.7 %; Neutrophils # 2.91 10^3/uL (1.8-7.7); Neutrophils % 59.8 %; Nucleated Red Blood Cells % 0 %; Platelet Count 223 10^3/cmm (130-400); Red Blood Count 4.52 10^6/uL (4.1-5.3); Red Cell Distribution Width 12.5 % (12.1-15.1); White Blood Count 4.9 10^3/uL (4.0-10.0)
[2020-12-16 03:18] LABS: Alanine Aminotransferase 9 U/L (0-41); Albumin Level 3.5 g/dL (3.5-5.2); Alkaline Phosphatase 75 IU/L (40-130); Anion Gap 13.8 (5-19); Aspartate Amino Transferase 16 U/L (0-40); Blood Urea Nitrogen 18 mg/dL (8-23); Calcium 8.5 mg/dL (8.5-10.5); Carbon Dioxide 25 mmol/L (22-29); Chloride 101 mmol/L (98-107); Creatinine Clr Calc Pharmacy 87.0668; Globulin 3.3 g/dL (1.3-4.6); Glucose 121 mg/dL (65-115); Osmolality Calculated 285 mOsm/kg (285-295); Potassium 3.8 mmol/L (3.5-5.1); Sodium 136 mmol/L (136-145); Total Bilirubin 0.6 mg/dL (0.15-1.2); Total Protein 6.8 g/dL (6.6-8.7)
[2020-12-16] MEDS: hyDRALAzine 50 mg Tablet PO ×3 (05:24→23:50)
--- NOTE | 2020-12-16 06:36 | P.HPUD_ITS ---
Surgery/Procedure H&P Update DATE OF PROCEDURE: December 16, 2020 DATE H&P PERFORMED: 12/15/20 H&P UPDATE INFORMATION: I have reviewed H&P completed within last 30 days, No changes to prior documentation and H&P is in [facility] [place] on date indicated PREOP DIAGNOSIS: Right trimalleolar ankle fracture PLANNED PROCEDURE: Operation Date: 12/16/20 07:00 Proposed Procedures p ORIF Ankle(Right) - Maxwell Islas DPM
[2020-12-16] MEDS: sodium chloride 0.9% 1,000 ML 30 ML IV (06:40)
--- NOTE | 2020-12-16 07:10 | ANES.PREANE2 ---
Pre-Anesthetic Assessment Pre-Anesthetic Assessment: Height/Weight: Height 1.98 m Weight 120.202 kg Temp Pulse Resp BP Pulse Ox 98.4 F 96 18 190/82 99 12/16/20 06:32 12/16/20 06:32 12/16/20 06:32 12/16/20 06:32 12/16/20 06:32 Preop Diagnosis: Right trimalleolar ankle fracture Proposed Procedure: Operation Date: 12/16/20 07:00 Proposed Procedures p ORIF Ankle(Right) - Maxwell Islas DPM Familial anesthetic complications: None Was Beta Annette taken within 24 hours: N/A Last intake: Intake Last Liquid Date 12/16/20 Last Liquid Time 05:30 Last Solid Date 12/15/20 Social: Social History: No alcohol and No tobacco Airway: MP: 3 Dentition: Partials CV/HEM: CV/HEM: HTN Metabolic: Metabolic: DM Neuropsych: Neuropsych: TIA Anesthetic Plan: ASA status: 3 Anesthesia: General and Regional (specify below) Risk of > 500 ml blood loss (7ml/kg in children): No Meds/Allergies Current Medications: Current Medications Generic Name Dose Route Start Last Admin Trade Name Freq PRN Reason Stop Dose Admin Hydrocodone Bitart /Acetaminophen 1 tab 12/14/20 18:00 12/15/20 21:45 Hydrocodone-Acet aminophen 7.5-325 Mg Tablet PO 1 tab Q6H PRN Administration MODERATE PAIN Aspirin 81 mg 12/13/20 09:00 12/15/20 09:26 Aspirin 81 Mg Ec Tablet PO 81 mg DAILY MARTHA Administration Atorvastatin Calci um 80 mg 12/13/20 09:00 12/15/20 09:26 Atorvastatin 40 Mg Tablet PO 80 mg DAILY MARTHA Administration Clopidogrel Bisulf ate 75 mg 12/13/20 09:00 12/15/20 18:52 Clopidogrel 75 M g Tablet PO Not Given DAILY MARTHA Hydralazine HCl 50 mg 12/13/20 12:12 12/16/20 05:24 Hydralazine 50 M g Tablet PO 50 mg Q6H PRN Administration BP GREATER THAN 1 60/100 Insulin Aspart 0 unit 12/13/20 08:46 12/15/20 21:37 Insulin Aspart 1 00 Unit/1 Ml SUBCUT 4 unit WM&BEDTIME MARTHA Administration Protocol Losartan Potassium 50 mg 12/13/20 09:00 12/15/20 09:26 Losartan 50 Mg T ablet PO 50 mg DAILY MARTHA Administration Tamsulosin HCl 0.4 mg 12/14/20 12:45 12/15/20 09:26 Tamsulosin 0.4 M g Capsule PO 0.4 mg DAILY MARTHA Administration PFSH Anesthesia PFSH: Medical History (Updated 12/13/20 @ 15:59 by Rossana Becker RN) Diabetes Hypertension Surgical History (Updated 12/13/20 @ 06:35 by Radhames Salazar MD) No pertinent past surgical history Family History (Updated 12/13/20 @ 06:35 by Radhames Salazar MD) Denies family history of Chronic kidney disease (CKD) Cancer Social History (Updated 12/13/20 @ 06:35 by Radhames Salazar MD) Smoking and tobacco status: never smoked Alcohol intake: never Substance/Drug Use: never Lives independently: Yes Household members: spouse Housing: House Data Anesthesia CBC & Chem 7: 12/16/20 02:35 12/16/20 02:35 Other Labs: Laboratory Results - last 48 hr 12/13/20 12/14/20 12/14/20 Unknown 10:29 16:32 WBC RBC Hgb Hct MCV MCH MCHC RDW Plt Count MPV Neut % (Auto) Lymph % (Auto) [place] % (Auto) Eos % (Auto) Baso % (Auto) Neut # (Auto) Lymph # (Auto) [place] # (Auto) Eos # (Auto) Baso # (Auto) Nucleated RBC % (auto) Nucleated RBCs # Sodium Potassium Chloride Carbon Dioxide Anion Gap BUN Creatinine GFR Calculation Glucose POC Glucose 178 H 174 H Calculated Osmolality Calcium Magnesium Total Bilirubin AST ALT Alkaline Phosphatase Troponin T Baseline Troponin T 120 Minute Delta Troponin T Total Protein Albumin Globulin Nasal/Oral COVID-19 PCR Not detected 12/14/20 12/15/20 12/15/20 20:30 02:14 02:14 WBC 6.8 RBC 4.59 Hgb 14.0 Hct 40.8 L MCV 88.9 MCH 30.5 MCHC 34.3 RDW 12.6 Plt Count 237 MPV 10.4 Neut % (Auto) 73.4 Lymph % (Auto) 17.6 [place] % (Auto) 7.9 Eos % (Auto) 0.7 Baso % (Auto) 0.1 Neut # (Auto) 5.01 Lymph # (Auto) 1.2 [place] # (Auto) 0.5 Eos # (Auto) 0.1 Baso # (Auto) 0.0 Nucleated RBC % (auto) 0 Nucleated RBCs # 0.0 Sodium 134 L Potassium 4.1 Chloride 101 Carbon Dioxide 24 Anion Gap 13.1 BUN 17 Creatinine 1.0 GFR Calculation Not Reportable Glucose 178 H POC Glucose 216 H Calculated Osmolality 284 L Calcium 8.8 Magnesium 1.9 Total Bilirubin 0.8 AST 16 ALT 8 Alkaline Phosphatase 76 Troponin T Baseline Troponin T 120 Minute Delta Troponin T Total Protein 6.8 Albumin 3.6 Globulin 3.2 Nasal/Oral COVID-19 PCR 12/15/20 12/15/20 12/15/20 06:36 12:44 12:55 WBC RBC Hgb Hct MCV MCH MCHC RDW Plt Count MPV Neut % (Auto) Lymph % (Auto) [place] % (Auto) Eos % (Auto) Baso % (Auto) Neut # (Auto) Lymph # (Auto) [place] # (Auto) Eos # (Auto) Baso # (Auto) Nucleated RBC % (auto) Nucleated RBCs # Sodium Potassium Chloride Carbon Dioxide Anion Gap BUN Creatinine GFR Calculation Glucose POC Glucose 189 H 180 H Calculated Osmolality Calcium Magnesium Total Bilirubin AST ALT Alkaline Phosphatase Troponin T Baseline 51 H Troponin T 120 Minute Delta Troponin T Total Protein Albumin Globulin Nasal/Oral COVID-19 PCR 12/15/20 12/15/20 12/15/20 16:06 16:58 21:19 WBC RBC Hgb Hct MCV MCH MCHC RDW Plt Count MPV Neut % (Auto) Lymph % (Auto) [place] % (Auto) Eos % (Auto) Baso % (Auto) Neut # (Auto) Lymph # (Auto) [place] # (Auto) Eos # (Auto) Baso # (Auto) Nucleated RBC % (auto) Nucleated RBCs # Sodium Potassium Chloride Carbon Dioxide Anion Gap BUN Creatinine GFR Calculation Glucose POC Glucose 201 H 184 H Calculated Osmolality Calcium Magnesium Total Bilirubin AST ALT Alkaline Phosphatase Troponin T Baseline Troponin T 120 Minute 48.54 H Delta Troponin T -2.46 L Total Protein Albumin Globulin Nasal/Oral COVID-19 PCR 12/16/20 12/16/20 02:35 02:35 WBC 4.9 RBC 4.52 Hgb 13.5 Hct 40.2 L MCV 88.9 MCH 29.9 MCHC 33.6 RDW 12.5 Plt Count 223 MPV 10.5 H Neut % (Auto) 59.8 Lymph % (Auto) 26.5 [place] % (Auto) 11.7 Eos % (Auto) 1.4 Baso % (Auto) 0.4 Neut # (Auto) 2.91 Lymph # (Auto) 1.3 [place] # (Auto) 0.6 Eos # (Auto) 0.1 Baso # (Auto) 0.0 Nucleated RBC % (auto) 0 Nucleated RBCs # 0.0 Sodium 136 Potassium 3.8 Chloride 101 Carbon Dioxide 25 Anion Gap 13.8 BUN 18 Creatinine 1.1 GFR Calculation Not Reportable Glucose 121 H POC Glucose Calculated Osmolality 285 Calcium 8.5 Magnesium 2.0 Total Bilirubin 0.6 AST 16 ALT 9 Alkaline Phosphatase 75 Troponin T Baseline Troponin T 120 Minute Delta Troponin T Total Protein 6.8 Albumin 3.5 Globulin 3.3 Nasal/Oral COVID-19 PCR Cardiac Studies: No Data to Display
--- NOTE | 2020-12-16 07:11 | ANES.PROC ---
Anesthesia Procedures Procedure/Date: 12/16/20 Nerve Block ^: Nerve Block 1: Main Anesthesia: general anesthesia Time Out Performed: Yes Consent: requested by attending/covering physician, from patient, risks and benefits reviewed and patient agrees to proceed Nerve block location: popliteal (R) Anesthesia monitors applied: pulse oximetry, EKG, BP cuff and oxygen Nerve block position: supine Anesthetic Used: ropivicaine 0.5% and with decadron (4 mg) Amount of anesthesia used (mL): 30 Ultrasound used to: recognize landmarks Nerve Stimulator Used?: No Interscalene/Femoral BLK: 4 stimuplex 21 g needle used for position and inplane approach, visualize local anesthetic spread and no vascular puncture identified Injection: neg aspiration of heme and paresthesia +/- (Patient experienced parasthesias twice with commencement of injection; both times injection immediately halted and needle redirected with no subsequent parasthesia during injection) Patient Tolerated Procedure: well Complications: none
[2020-12-16] MEDS: ceFAZolin 3,000 MG in sodium chloride 0.9% (100 ml) 100 ML 200 MG IV (07:16)
--- NOTE | 2020-12-16 08:50 | P.OP_ITS ---
Operative Report Date of procedure: December 16, 2020 Pre-op Diagnosis: Right trimalleolar ankle fracture Post-op diagnosis: same Procedure Done: Open reduction internal fixation right trimalleolar ankle fracture CPT code 48261 Implants: [place] anatomical fibular plate, [place] 3.5 mm locking screws and interfrag screw, [place] 4.0 headed partially-threaded cannulated screws x2, 4-0 Vicryl, 4-0 nylon, skin dina Pathology: none sent Surgeon: Maxwell Islas D.P.M. Roadway Designer: Tameka Anesthesia: General Estimated blood loss: 10 mL Tourniquet time: 63 minutes IV fluids: None Urine output: None Complications: None Findings: Unstable trimalleolar ankle fracture, right. Condition: stable Disposition: floor Brief History: Patient has a unstable trimalleolar ankle fracture, right. Recommended open reduction internal fixation. Risks include pain, bleeding, numbness, infection, hardware irritation, hardware failure, delayed union, malunion, nonunion, posttraumatic arthritis and loss of function and need for further surgical intervention. Risk for DVT, PE, heart attack, stroke and . Patient seen preoperatively, I initialed his right lower extremity, informed consent signed. No guarantees written, expressed or implied. Patient wished to proceed. Procedure: Under mild sedation the patient was brought to the operating room and placed on the operating table in supine position. Popliteal block performed preoperatively per anesthesia. Timeout was performed. General anesthesia was administered by the anesthesia service. Local anesthesia injected by myself 10 cc of 0.5 sent Marcaine plain and a right saphenous nerve block proximal to the medial malleolus. Well-padded pneumatic tourniquet applied to the right high calf. Right lower extremity was scrubbed, prepped and draped utilizing normal aseptic technique. Right lower extremity was examined a weighted with an Esmarch bandage and a tourniquet inflated to 250 mmHg. Attention was directed to the distal fibula where the lateral malleolus was palpated. Linear longitudinal incision made directly over the lateral malleolus extending proximal to the distal diaphysis of the fibula with #15 blade this was linear and longitudinal with dissection carried down through subcutaneous tissue down to the layer of periosteum utilizing blunt and sharp technique. Care was taken to retract and preserve neurovascular and tendon structures. All bleeders were ligated and cauterized as necessary. A fracture of the fibula was identified this was a Jovi Evans B with posterior spike this was evacuated of its hematoma flushed and reduced utilizing [id number] self-retaining reduction tenaculums. Next utilizing standard AO technique and interfrag screw was inserted this was 16 mm in length perpendicular to the fracture site. Excellent bony apposition and compression noted. Next utilizing standard AO technique a anatomical fibular plate was fixated utilizing locking 3.5 millimeter screws both distally and proximally with care not to violate the ankle mortise this was confirmed with intraoperative fluoroscopy. Lateral incision was flushed with saline solution and closed utilizing 2-0 Vicryl, 4-0 Vicryl and skin dina. Attention was then directed to the medial malleolus where a linear longitudinal skin was made through skin with dissection carried down through subcutaneous tissue utilizing blunt and sharp technique. Lesser saphenous vein was visualized and retracted anteriorly with self-retaining retractors. Periosteal incision was made in the medial malleolar fragment was evacuated of hematoma and periosteal flap and temporarily reduced anatomically utilizing [id number] forceps and fixated utilizing [employer] 4.0 millimeter screws by 50 partially threaded and cannulated these were headed screws x2 with excellent bony apposition and compression noted. Anatomical reduction of the trimalleolar ankle fracture was appreciated with fibula out to length and congruent ankle mortise utilizing intraoperative fluoroscopy. Medial incision was flushed with saline solution and closed utilizing 2-0 Vicryl, 4-0 Vicryl and skin dina. Percutaneous sites x2 closed utilizing 4-0 nylon. Incision sites were dressed utilizing nonadherent Adaptic, sterile 4 x 4, Kerlix and [place] wrap x2 followed by a cam boot. Tourniquet was deflated and a prompt hyperemic response is noted to the distal digits of the right lower extremity. Patient tolerated the procedure well and was transferred to the PACU with vital signs stable vascular status intact. Following a period of postoperative monitoring he will be transferred back to the floor he is to remain strict nonweightbearing for 6 weeks to the right lower extremity he will keep his postoperative dressing clean, dry and intact until follow-up visit in podiatry clinic next Saturday this will be his first dressing change. Will require DVT prophylaxis postoperatively will discuss this with hospitalist. Will also be providing him with pain medication at discharge home.
--- NOTE | 2020-12-16 09:01 | P.PCN_ITS ---
PACU note PACU note: VSS, Good respiratory effort, report to LEGAL MANAGER Post-Anesthesia Exam: awake
--- NOTE | 2020-12-16 09:01 | PM.PACU ---
PACU note PACU note: VSS, Good respiratory effort, report to DIRECTOR ON AIR Post-Anesthesia Exam: awake
--- NOTE | 2020-12-16 09:06 | SUR.PHASEI ---
0854 PT TO PACU AWAKE ALERT DENIES PAIN AND NAUSEA RT ANKLE FOOT DRESSING D/I WALKING BOOT IN PLACE DISTAL TOES PINK WARM WITH CAP REFILL LESS THAN 3 SECONDS. FOOT ELEVATED PER BED SCD ON LT LEG, IV PATENT VSS GOOD RESP NOTED 904 PT ON RA TRIAL PT TALKING ICE CHIPS VSS.
--- NOTE | 2020-12-16 09:32 | PC.NURSE ---
Surgery Pt back from surgery and is using urinal.
--- NOTE | 2020-12-16 09:34 | SUR.PHASEI ---
PT AWAKE ALERT TO FLOOR TALKATIVE WITH CAPRICE RN ON FLOOR, DRESSING D/I WITH FOOT ELEVATED PER BED.
[2020-12-16 10:51] LABS: Glucose Point of Care 196 mg/dL (70-110)
--- NOTE | 2020-12-16 10:52 | XR_ITS ---
WS: [id number] Right ankle, 3 views, 12/16/2020 Clinical Data: post op Comparison: Right ankle, 12/13/2020. Findings: The trimalleolar fracture has been reduced with a lateral plate on the distal fibula fixed with screw s. There are 2 oblique screws in the medial malleolus. There are subcutaneous dina medially and laterally over the operative sites. XR/XR ankle RT min 3V* [id number] Impression: Internal fixation of distal right ankle fracture with lateral fibular plate and oblique medial malleolar screws.
[2020-12-16] MEDS: atorvastatin 40 mg Tablet 80 MG PO (11:54)
[2020-12-16] MEDS: clopidogrel 75 mg Tablet PO (11:54)
[2020-12-16] MEDS: losartan 50 mg Tablet PO (11:55)
[2020-12-16] MEDS: aspirin 81 mg EC Tablet PO (11:55)
[2020-12-16] MEDS: tamsulosin 0.4 mg Capsule PO (11:55)
--- NOTE | 2020-12-16 13:20 | ECG_ITS ---
[facility] Test Date: 2020-12-16 Pat Name: Charles Mendoza Department: Room: 263 Gender: Male Feed Manager: : 1945 Requested By: Emeka Moore Order Number: [id number] Liza MD: Eduardo Renae M.D. 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 [id number]
--- NOTE | 2020-12-16 13:47 | PC.CHAP ---
Pastoral Care Encounter/Spiritual Assessment Type of Contact [xx] Declined test department helper visit [] Patient/Family/Request visit [] Outpatient visit [] Follow-up visit [] Physician referral [] Code/Alert [] Routine visit [] Staff referral [] Actively dying [] Patient sleeping [] Family support [] [] Out of room [] Palliative care [] [] Receiving care in room [] Pre-surgical visit [] Trauma [] Long length of stay [] ICU visit [xx] Other: Follow up needed Relational/Emotional Strength [] Patient feels connected with others/family/visitors/staff [] Distress [] Loneliness/isolation [] Abandonment Spirituality of Patient [] Person of Bria [] Attends Sikh of their Bria [] Believes in Prayer [] Reads Bible or Methodist materials [] There are Spiritual issues to be addressed Residential Green Building Designer Interventions [] Prayer [] Active listening [] Non-anxious presence [] Spiritual/emotional support [] Crisis/trauma care [] Spiritual counseling [] Bereavement support [] Provided bereavement packet [xx] Provided Bible/devotional materials [] Provided toy/stuffed animal, coloring book to patient or family member [] Provided Communion [] Anointing/[place] [] Salvation [] Completed spiritual assessment [] Other: Impact on Illness or Injury [] Angry [] Fearful [] Anxious [] Often cries [] Exhaustion [] Unable to work [] Unable to attend tenriism [] Unable to walk/stand [] Unable to read [] Unable to drive [] Unable to eat/drink [] Unable to sleep [] Unable to be with family [] Patient intubated [] Other: Summary Patient just returned from surgery and not yet up to visits. present and took copy of [employer] devotional. She stated they may accept visit and prayer later but not today. Do Follow up Time spent with patient 2 minutes
--- NOTE | 2020-12-16 14:19 | ANE.PACU2 ---
Inpatient post-anesthesia follow up: Airway intact: Yes Vital signs: Temperature 98.0 F Pulse Rate [Monito r] 96 Pulse Rate 110 Respiratory Rate 16 Blood Pressure [Ri ght Arm] 202/110 Blood Pressure 146/73 Pulse Oximetry 99 Oxygen Delivery Me thod Room Air Oxygen Flow Rate 8 Fraction of Inspir ed Oxygen Hydration adequate: Yes Nausea and vomiting: No Pain level: 3 Mental status: Baseline
[2020-12-16 14:22] LABS: Troponin(5th) Baseline 38 ng/L (0-15)
--- NOTE | 2020-12-16 15:20 | ECG_ITS ---
[facility] Test Date: 2020-12-16 Pat Name: Charles Mendoza Department: Room: 263 Gender: Male Cotton Grader: : 1945 Requested By: Emeka Moore Order Number: [id number] Liza MD: Eduardo Renae M.D. Measurements Intervals [place] Rate: 113 P: -46 AR: 192 QRS: -6 QRSD: 101 T: 58 QT: 351 QTc: 482 Interpretive Statements SINUS TACHYCARDIA POSSIBLE SEPTAL MYOCARDIAL INFARCTION [30 ms Q WAVE IN V1/V2], PROBABLY OLD INFERIOR MYOCARDIAL INFARCTION [40+ ms Q WAVE AND/OR ST/T ABNORMALITY IN II/aVF], PROBABLY OLD Compared to ECG 12/16/2020 13:26:46 Atrial flutter no longer present Myocardial infarct finding still present Electronically Signed On 12-16-2020 19:02:07 TRACK LAYING MACHINE OPERATOR by Eduardo Renae M.D. [id number]
--- NOTE | 2020-12-16 15:36 | PM.PN ---
Subjective Subjective: Interval history: Patient denies shortness of breath or chest pain this morning. Denies abdominal pain. He had his ankle surgery performed shortly after developed chest pain that did not last long and found to have atrial flutter with rapid ventricular response. Vitals/I&O/Wt Last Vital Signs Temp 98.0 F 12/16/20 11:30 Pulse 110 H 12/16/20 12:30 Resp 16 12/16/20 11:50 BP 146/73 12/16/20 12:30 Pulse Ox 99 12/16/20 12:30 12/16/20 12/16/20 12/16/20 06:59 14:59 22:59 Intake Total 150 / 150 Output Total 300 / 450 635 / 635 Balance -300 / 270 -485 / -485 Physical Exam Narrative: EXAM NARRATIVE: Clear lungs and regular heart this morning and on repeat exam patient is tachycardic but regular. Data : 12/16/20 02:35 12/16/20 02:35 A&P Assessment and plan (1) Ankle fracture: After sustaining a fall at home Dr. Islas consulted He will need lower extremity splinting to avoid edema however no active vascular compromise Status: Acute Qualifiers: Encounter type: initial encounter Fracture type: closed Laterality: right Qualified Code(s): S82.891A - Other fracture of right lower leg, initial encounter for closed fracture (2) TIA (transient ischemic attack): This appears to be related to atrial flutter. Patient has evidence of stroke on imaging. Status: Acute (3) Hypertension: We will continue losartan Status: Acute (4) Fall: Status: Acute Qualifiers: Encounter type: initial encounter Qualified Code(s): W19.XXXA - Unspecified fall, initial encounter (5) Weakness: Status: Acute (6) Atrial flutter with rapid ventricular response: Status: Acute (7) Chest pain: Status: Acute Additional A&P Information For type 2 diabetes I will start him on insulin and moderate sliding scale check A1c level Consistent carb diet DVT prophylaxis SCDs, start anticoagulation if no surgical intervention needed Full code PLAN: Discussed with patient regarding risks and benefits of anticoagulation and he agreed to proceed. Patient started on therapeutic Lovenox. 5 mg IV metoprolol prescribed followed by 50 mg p.o. twice daily. I will stop aspirin for now but continue Plavix although if decision is made to have further evaluation with coronary angiogram patient will need to be loaded anyways. Trend cardiac enzymes. Recent echocardiogram did not show focal wall motion abnormalities. EF was 60% Discussed with Dr. Wong who will see patient in consultation. Attestations Medical Necessity Statement*: Patient with atrial flutter and rapid ventricular response requires close inpatient monitoring and treatment till deemed safe for discharge. Coding Level of Care Code Acute Welder Setter Electron Beam Machine for [facility] Fwd Diagnoses Ankle fracture S82.891A Encounter type: initial encounter Fracture type: closed Laterality: right TIA (transient ischemic attack) G45.9 Hypertension I10 Fall W19.XXXA Encounter type: initial encounter Weakness R53.1 Atrial flutter with rapid ventricular response I48.92 Chest pain R07.9
[2020-12-16] MEDS: metoprolol tartrate 1 mg/1 mL SDV 5 mL 5 MG IV (15:47)
[2020-12-16] MEDS: metoprolol tartrate 50 mg Tablet PO ×2 (16:03→20:47)
[2020-12-16] MEDS: enoxaparin 120 mg/0.8 mL Syringe SUBCUT (16:04)
[2020-12-16 16:43] LABS: Troponin 5 2HR 37.05 ng/L (0-15)
[2020-12-16 16:46] LABS: Troponin 5 2HR Delta -0.95 ABS# (0-10)
[2020-12-16 17:14] LABS: Glucose Point of Care 230 mg/dL (70-110)
[2020-12-16] MEDS: HYDROcodone-acetaminophen 7.5-325 mg Tablet 1 TAB PO ×2 (18:05→23:48)
[2020-12-16 19:13] LABS: Troponin 5 6HR 38.33 ng/L (0-15); Troponin 5 6HR Delta 0.33 ng/L (0-12)
--- NOTE | 2020-12-16 19:37 | PC.NURSE ---
Patient received from [facility]. Report received from ELI Wallace. Patient continues to c/o pain to right ankle 02/20 says, that last pill they gave just does not seem to be working yet. Discussed pain medication and pain control with patient. Patient verbalized complete understanding. Patient provided urinal. Patient sent to CSU due to elevated heart rate and increased blood pressure. Current heart rate is 78 NSR. 168/94. Patient is pleasant and cooperative at this time.
[2020-12-16 20:17] LABS: Glucose Point of Care 194 mg/dL (70-110)
--- NOTE | 2020-12-16 20:31 | P.CONIM_ITS ---
Providers/Reason For Consult Consulting Physican/Specialty*: Cardiology Reason for Consult*: Arrhythmia Attending Physician: Emeka Moore MD Primary Care Provider: Kimani Durant History of Present Illness History of Present Illness Charles Mendoza is a 75 year old male past medical history significant of hypertension hyperlipidemia diabetes mellitus who was noted to have atrial flutter with rapid ventricle response after ankle surgery due to fracture. Patient admits to chest pressure radiating to both arms during that episode. He denies any prior episode of atrial fibrillation or flutter or chest pain at home. According to him most of his life he remains healthy and has not been admitted to the hospital. We have been asked to assist in his care. He denies any chest pain PND orthopnea. Review of Systems Const: Denies: fever(s), chills, body aches, change in appetite or fatigue Eyes: Denies: change in vision, blurry vision or eye discomfort ENMT: Denies: throat pain or dental pain Card: Reports: swelling of feet/ankles; Denies: chest pain or palpitations Resp: Denies: dyspnea GI: Denies: abdominal pain, nausea, vomiting, diarrhea or constipation : Denies: flank pain or dysuria Musc: Reports: extremity pain, joint pain, joint swelling, joint stiffness and muscle cramps; Denies: neck pain or back pain Skin/Breast: Denies: rash, lesions or changes in skin color Neuro: Reports: weakness in extremities and difficulty walking; Denies: headache(s) or numbness in extremities Psych: Denies: anxiety or depression Endo: Denies: polyuria Stanley/Lymph: Denies: easy bruising All/Imm: Denies: urticaria Meds/Allergies Home Medications and Allergies Home Medications Medication Instructions Recorded Confirmed Last Taken Type metformin 500 mg PO BID 12/13/20 12/13/20 Unknown History nitroglycerin 0.4 mg SUBLINGUAL PRN PRN 12/13/20 12/13/20 Unknown History tamsulosin 0.4 mg PO DAILY 12/13/20 12/13/20 Unknown History apixaban 5 mg PO BID #60 tab 12/17/20 Unknown Rx aspirin [Adult Low Dose Aspirin] 81 mg PO DAILY #30 tab 12/17/20 Unknown Rx atorvastatin 80 mg PO DAILY #30 tab 12/17/20 Unknown Rx hydrocodone-acetaminophen [[place]] 1 tab PO Q6H PRN #28 tab 12/17/20 Unknown Rx isosorbide mononitrate 10 mg PO BID #60 tab 12/17/20 Unknown Rx metoprolol tartrate 50 mg PO BID@0900,2100 #60 tab 12/17/20 Unknown Rx olmesartan 40 mg PO DAILY #60 tab 12/17/20 12/13/20 Unknown Rx Allergies Allergy/AdvReac Type Severity Reaction Status Date / Time steroids Allergy ADR-Hyperte Uncoded 12/13/20 04:43 nsion Current Medications Current Medications Generic Name Dose Route Start Last Admin Trade Name Freq PRN Reason Stop Dose Admin Hydrocodone Bitart/Acetaminophen 1 tab 12/14/20 18:00 12/16/20 18:05 Hydrocodone-Acetaminophen 7.5-325 Mg Tablet PO 1 tab Q6H PRN Administration MODERATE PAIN Atorvastatin Calcium 80 mg 12/13/20 09:00 12/16/20 11:54 Atorvastatin 40 Mg Tablet PO 80 mg DAILY MARTHA Administration Clopidogrel Bisulfate 75 mg 12/13/20 09:00 12/16/20 11:54 Clopidogrel 75 Mg Tablet PO 75 mg DAILY MARTHA Administration Enoxaparin Sodium 120 mg 12/16/20 16:00 12/16/20 16:04 Enoxaparin 120 Mg/0.8 Ml Syringe SUBCUT 120 mg Q12H MARTHA Administration Hydralazine HCl 50 mg 12/13/20 12:12 12/16/20 11:59 Hydralazine 50 Mg Tablet PO 50 mg Q6H PRN Administration BP GREATER THAN 160/100 Insulin Aspart 0 unit 12/13/20 08:46 12/16/20 18:06 Insulin Aspart 100 Unit/1 Ml SUBCUT 6 unit WM&BEDTIME MARTHA Administration Protocol Losartan Potassium 50 mg 12/13/20 09:00 12/16/20 11:55 Losartan 50 Mg Tablet PO 50 mg DAILY MARTHA Administration Metoprolol Tartrate 5 mg 12/16/20 15:23 12/16/20 15:47 Metoprolol Tartrate 1 Mg/1 Ml Sdv 5 Ml IV 5 mg Q4H PRN Administration HR>110 Tamsulosin HCl 0.4 mg 12/14/20 12:45 12/16/20 11:55 Tamsulosin 0.4 Mg Capsule PO 0.4 mg DAILY MARTHA Administration PFSH Acute PFSH: Medical History (Updated 12/18/20 @ 00:00 by ) Diabetes Hypertension Surgical History (Updated 12/13/20 @ 06:35 by Radhames Salazar MD) No pertinent past surgical history Family History (Updated 12/13/20 @ 06:35 by Radhames Salazar MD) Denies family history of Chronic kidney disease (CKD) Cancer Social History (Updated 12/13/20 @ 06:35 by Radhames Salazar MD) Smoking and tobacco status: never smoked Alcohol intake: never Lives independently: Yes Household members: spouse Housing: House Vitals/I&O/Wt Last Vital Signs Temp 98.1 F 12/16/20 19:48 Pulse 76 12/16/20 19:48 Resp 21 H 12/16/20 19:48 BP 164/92 12/16/20 19:48 Pulse Ox 98 12/16/20 15:37 12/16/20 12/16/20 12/16/20 06:59 14:59 22:59 Intake Total 150 / 150 Output Total 300 / 450 635 / 635 175 / 810 Balance -300 / 270 -485 / -485 -175 / -660 Physical Exam Narrative: EXAM NARRATIVE: GENERAL: Patient is alert, awake and oriented x3. NECK: No jugular vein distension. HEENT: No cyanosis. No icterus. No pallor. HEART: Irregularly rate S1 and S2. No murmur, rub or gallop. LUNGS: Clear to auscultate bilaterally. ABDOMEN: Soft, nontender and nondistended. Positive bowel sounds. No guarding, rebound or tenderness. CENTRAL NERVOUS SYSTEM: Grossly nonfocal. EXTREMITIES: Lower extremities without edema bilaterally. A&P Assessment and plan (1) Atrial flutter with rapid ventricular response: Currently patient converted back to sinus rhythm continue beta-alex, aspirin full dose as most likely it was postop A. fib due to hyperadrenergic state. Status: Resolved (2) Ankle fracture: As per Dr. Naranjo Status: Resolved Qualifiers: Encounter type: initial encounter Fracture type: closed Laterality: right Qualified Code(s): S82.891A - Other fracture of right lower leg, initial encounter for closed fracture (3) Chest pain: Chest pressure radiating to both arm during atrial flutter and rapid ventricle response in the patient with history of hypertension and longstanding diabetes mellitus may be present demand ischemia. We recommend stress test to further evaluate. Patient during this admission is not interested in the stress test. We we will schedule him as an outpatient. Echocardiogram to assess LV function and any valvular abnormality. 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
--- NOTE | 2020-12-16 20:34 | PC.NURSE ---
Patient continues to c/o pain to right ankle stating the pill is not giving me any relief. Patient rates pain 7-8/10 with radiation up the right leg. Informed Dr Cabral and received telephone order for Morphing 2mg [id number] for severe pain. RBVO.
[2020-12-16] MEDS: morphine 4 mg/mL SDV 1 mL 2 MG IVP (20:47)
--- NOTE | 2020-12-16 20:51 | PC.NURSE ---
Dr Wong in to see patient at this time. Discussed morphine and metoprolol with Dr Wong. Patient agreeable to both. Also explained to patient the use of morphine for severe pain. Patient verbalized complete understanding.
[2020-12-17] VITALS (7 sets, daily range): BP systolic 138–176; BP diastolic 69–95; PULSE 71–84; RESP 17–18; TEMP 36.6–36.9; O2SAT 94–99
--- NOTE | 2020-12-17 00:13 | PC.NURSE ---
Patient continues to c/o pain to right ankle 02/20. Administered hydrocodone as ordered. Patient c/o being in the hospital saying he can't sleep and he feels really stressed. He has never been a patient before. Informed Dr Cabral, received onetime order for Trazadone 25mg PO. RBVO.
[2020-12-17] MEDS: trazodone 50 mg Tablet 25 MG PO (00:23)
--- NOTE | 2020-12-17 01:39 | PC.NURSE ---
Patient reports feeling less pain to his right ankle and leg. 01/21. Still unable to sleep this evening. Patient stated, I just need to be home in my own bed. Patient has been pleasant and cooperative. Understanding of all instructions. No distress observed.
[2020-12-17] MEDS: enoxaparin 120 mg/0.8 mL Syringe SUBCUT (03:56)
[2020-12-17 05:44] LABS: Basophils % 0.1 %; Hematocrit 43.8 % (42.0-52.0); Hemoglobin 14.8 g/dL (11.7-16.6); Lymphocytes # 1.5 10^3/uL (0.8-4.8); Lymphocytes % 13.5 %; Mean Corpuscular HGB Conc 33.8 g/dL (30.0-36.0); Mean Corpuscular Hemoglobin 30.2 pg (28.0-34.0); Mean Corpuscular Volume 89.4 fL (80-94); Mean Platelet Volume 11.1 fL (7.4-10.4); Monocytes # 0.7 10^3/uL (0.2-0.9); Neutrophils # 8.87 10^3/uL (1.8-7.7); Nucleated Red Blood Cells % 0 %; Platelet Count 334 10^3/cmm (130-400); Red Cell Distribution Width 12.5 % (12.1-15.1); White Blood Count 11.1 10^3/uL (4.0-10.0)
[2020-12-17] MEDS: HYDROcodone-acetaminophen 7.5-325 mg Tablet 1 TAB PO ×2 (06:06→12:55)
[2020-12-17 06:12] LABS: Alanine Aminotransferase 10 U/L (0-41); Alkaline Phosphatase 90 IU/L (40-130); Anion Gap 19.6 (5-19); Aspartate Amino Transferase 22 U/L (0-40); Blood Urea Nitrogen 20 mg/dL (8-23); Calcium 9.2 mg/dL (8.5-10.5); Carbon Dioxide 21 mmol/L (22-29); Chloride 96 mmol/L (98-107); Globulin 4.2 g/dL (1.3-4.6); Glucose 145 mg/dL (65-115); Magnesium 2.1 mg/dL (1.7-2.3); Osmolality Calculated 281 mOsm/kg (285-295); Potassium 3.6 mmol/L (3.5-5.1); Sodium 133 mmol/L (136-145); Total Bilirubin 0.6 mg/dL (0.15-1.2); Total Protein 8.2 g/dL (6.6-8.7)
[2020-12-17 06:39] LABS: Glucose Point of Care 186 mg/dL (70-110)
--- NOTE | 2020-12-17 07:16 | PM.PN ---
Subjective Subjective: Interval history: Mr. Mendoza seen bedside this morning 1 day status post open reduction internal fixation right trimalleolar ankle fracture doing well postoperatively. Pain under control with analgesics, denies any posterior calf pain. No strikethrough bleeding at the dressing. He is hopeful to go home, his life partner plans on staying with him to assist with recovery and his nonweightbearing status. Patient denies any subjective nausea, vomiting, fever, chills, shortness of breath or chest pain. Vitals/I&O/Wt Last Vital Signs Temp 98.5 F 12/17/20 03:50 Pulse 84 12/17/20 06:00 Resp 18 12/17/20 03:50 BP 138/69 12/17/20 03:50 Pulse Ox 98 12/17/20 03:50 12/16/20 12/17/20 12/17/20 22:59 06:59 14:59 Intake Total 240 / 390 933 / 1323 Output Total 175 / 810 500 / 1310 Balance 65 / -420 433 / 13 Physical Exam Narrative: EXAM NARRATIVE: GENERAL: Patient is alert and oriented ?3 and in no acute distress. The following is a focused right lower extremity exam. VASCULAR: Dorsalis pedis and posterior tibial arteries palpable +2. Capillary refill time less than 3 seconds to the distal hallux bilaterally. Calf is supple and nontender proximally and distally. Mild edema at the operative site consistent with postoperative course. NEUROLOGICAL: Protective sensation intact to light touch. DERMATOLOGICAL: Incision site is well coapted with dina intact mild ecchymosis no erythema no dehiscence no drainage or warmth. MUSCULOSKELETAL: Tenderness about the operative site consistent with postoperative course. No pain with posterior calf squeeze. Able to wiggle toes on command. Ankle joint dorsiflexion is to neutral. Further musculoskeletal exam deferred due to postoperative state. Data : 12/17/20 04:51 12/17/20 04:51 A&P Assessment and plan (1) Trimalleolar fracture of right ankle: Status: Acute Qualifiers: Encounter type: initial encounter Fracture type: closed Qualified Code(s): S82.851A - Displaced trimalleolar fracture of right lower leg, initial encounter for closed fracture 1 day status post open reduction internal fixation right trimalleolar ankle fracture doing well postoperatively. Date of surgery 12/16/2020. Dressing change performed today, stable postoperative changes with well-healing incision site, no dehiscence, no periincision warmth or drainage. -Patient to remain strict nonweightbearing to the right lower extremity, leave current dressing intact and keep it clean and dry until follow-up visit in podiatry clinic 12/23/2020 at 10 AM -Elevate right foot to the level of the hip while at rest. Keep cam boot on the right lower extremity at all times. -DVT prophylaxis per medicine team -Patient okay for discharge from podiatry standpoint will follow up in podiatry clinic as above. 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
[2020-12-17] MEDS: tamsulosin 0.4 mg Capsule PO (08:13)
[2020-12-17] MEDS: atorvastatin 40 mg Tablet 80 MG PO (08:13)
[2020-12-17] MEDS: metoprolol tartrate 50 mg Tablet PO (08:13)
[2020-12-17] MEDS: clopidogrel 75 mg Tablet PO (08:13)
[2020-12-17] MEDS: losartan 50 mg Tablet PO (08:14)
[2020-12-17 11:06] LABS: Glucose Point of Care 174 mg/dL (70-110)
--- NOTE | 2020-12-17 11:23 | P.DS_ITS ---
Discharge Providers Date of Admission: 12/15/20 14:52 Date of Discharge: December 17, 2020 Attending Provider at Admission: Radhames Salazar MD Attending Provider at Discharge: Emeka Moore MD Primary Care Provider: Kimani Durant Diagnoses at Discharge Discharge Diagnosis (1) Atrial flutter with rapid ventricular response: Status: Acute (2) Chest pain: Status: Acute (3) Cerebrovascular accident: Status: Acute (4) Fall: Status: Acute Qualifiers: Encounter type: initial encounter Qualified Code(s): W19.XXXA - Unspecified fall, initial encounter (5) Hypertension: Status: Acute (6) Trimalleolar fracture of right ankle: Status: Acute Qualifiers: Encounter type: initial encounter Fracture type: closed Qualified Code(s): S82.851A - Displaced trimalleolar fracture of right lower leg, initial encounter for closed fracture Reason for Visit Reason for Visit: ANKLE PAIN Hospital Course Hospital Course Patient presented with fall and trimalleolar right ankle fracture requiring surgical intervention. Patient was found to have evidence of stroke but does not appear to have any focal neurological deficit. He had episode of atrial flutter with rapid ventricular response and during that time was complaining of chest pain. Chest pain improved once heart rate normalized after he was given 5 mg IV metoprolol and started on 50 mg twice daily oral metoprolol. Shortly after he converted back to normal sinus rhythm. He was seen by Dr. Larsen. He does not want to stay until tomorrow to have stress test performed. He adamantly wants to go home today. Patient admits that he has not been able to take any blood pressure medications because of adverse reactions which reported to be a paranoia. He has been tolerating metoprolol well therefore I will increase his olmesartan to 40 mg daily and continue metoprolol 50 mg twice daily. Discussed with Dr. Wong this morning. We will go ahead and request outpatient sestamibi [place] to further evaluate his coronaries. Considering that patient had stroke he will be placed on low-dose aspirin and Eliquis. Chance of hemorrhagic transformation felt to be low. I had extensive discussion with patient regarding importance of blood pressure control. Patient voiced understanding. Reports that he will take his blood pressure medications as prescribed. He was noted to have bilateral ICA stenosis of less than 50% I will also request outpatient follow-up with Dr. Fuentes. Patient to see Dr. Islas in 1 week Patient has home health already set up Physical Exam Narrative: EXAM NARRATIVE: Lungs are clear and heart is regular. Abdomen soft nontender with positive bowel sounds. Small umbilical hernia. No focal neurological findings on exam although right lower extremity evaluation is limited given fracture. Discharge Data Data Completed and Pending: Completed Studies During Hospitalization Category Date Time Status CT head wo con* 7 [id number] Urgent Cat Scan 12/13/20 04:40 Completed XR ankle RT min 3 V* [id number] Routine Exams 12/16/20 10:52 Completed XR ankle RT min 3 V* [id number] Stat Exams 12/13/20 04:34 Completed XR chest 1V errol ble [id number] Urgent Exams 12/13/20 04:40 Completed MR head wo con* 7 [id number] Routine MRI 12/14/20 12:30 Completed CV carotid duplex BI* [id number] Routine Ultrasound 12/13/20 08:46 Completed CV echo complete* [id number] Routine Ultrasound 12/14/20 12:46 Completed Pending at discharge Category Date Time Status C-arm Mini [id number] Routine Exams 12/16/20 06:24 Taken Labs from last 24 hours 12/17/20 12/17/20 12/17/20 10:47 06:34 04:51 WBC RBC Hgb Hct MCV MCH MCHC RDW Plt Count MPV Neut % (Auto) Lymph % (Auto) Atkinson % (Auto) Eos % (Auto) Baso % (Auto) Neut # (Auto) Lymph # (Auto) Atkinson # (Auto) Eos # (Auto) Baso # (Auto) Nucleated RBC % (a uto) Nucleated RBCs # Sodium 133 L Potassium 3.6 Chloride 96 L Carbon Dioxide 21 L Anion Gap 19.6 H BUN 20 Creatinine 1.0 GFR Calculation Not Reportable Glucose 145 H POC Glucose 174 H 186 H Calculated Osmolal ity 281 L Calcium 9.2 Magnesium 2.1 Total Bilirubin 0.6 AST 22 ALT 10 Alkaline Phosphata se 90 Troponin T Baselin e Troponin T 120 Min teller Delta Troponin T Troponin T Hi Sens 6Hr Troponin T Hi Sens 6Hr Delta Total Protein 8.2 Albumin 4.0 Globulin 4.2 12/17/20 12/16/20 12/16/20 04:51 20:11 18:36 WBC 11.1 H RBC 4.90 Hgb 14.8 Hct 43.8 MCV 89.4 MCH 30.2 MCHC 33.8 RDW 12.5 Plt Count 334 MPV 11.1 H Neut % (Auto) 80.0 Lymph % (Auto) 13.5 Atkinson % (Auto) 6.0 Eos % (Auto) 0.0 Baso % (Auto) 0.1 Neut # (Auto) 8.87 H Lymph # (Auto) 1.5 Atkinson # (Auto) 0.7 Eos # (Auto) 0.0 Baso # (Auto) 0.0 Nucleated RBC % (a uto) 0 Nucleated RBCs # 0.0 Sodium Potassium Chloride Carbon Dioxide Anion Gap BUN Creatinine GFR Calculation Glucose POC Glucose 194 H Calculated Osmolal ity Calcium Magnesium Total Bilirubin AST ALT Alkaline Phosphata se Troponin T Baselin e Troponin T 120 Min teller Delta Troponin T Troponin T Hi Sens 6Hr 38.33 H Troponin T Hi Sens 6Hr Delta 0.33 Total Protein Albumin Globulin 12/16/20 12/16/20 12/16/20 17:01 15:44 13:36 WBC RBC Hgb Hct MCV MCH MCHC RDW Plt Count MPV Neut % (Auto) Lymph % (Auto) Atkinson % (Auto) Eos % (Auto) Baso % (Auto) Neut # (Auto) Lymph # (Auto) Atkinson # (Auto) Eos # (Auto) Baso # (Auto) Nucleated RBC % (a uto) Nucleated RBCs # Sodium Potassium Chloride Carbon Dioxide Anion Gap BUN Creatinine GFR Calculation Glucose POC Glucose 230 H Calculated Osmolal ity Calcium Magnesium Total Bilirubin AST ALT Alkaline Phosphata se Troponin T Baselin e 38 H Troponin T 120 Min teller 37.05 H Delta Troponin T -0.95 L Troponin T Hi Sens 6Hr Troponin T Hi Sens 6Hr Delta Total Protein Albumin Globulin Vitals: Last Vital Signs Temp 97.9 F 12/17/20 10:44 Pulse 79 12/17/20 10:44 Resp 18 12/17/20 10:44 BP 157/95 12/17/20 10:44 Pulse Ox 99 12/17/20 10:44 Discharge Plan Discharge Patient Disposition: Home Health Service Condition: Stable Prescriptions: [place] 10-325 mg tablet 1 tab PO Q6H PRN (Reason: pain) Qty: 28 RF: 0 atorvastatin 40 mg Tablet 80 mg PO DAILY Qty: 30 RF: 0 metoprolol tartrate 50 mg Tablet 50 mg PO BID@0900,2100 Qty: 60 RF: 0 aspirin [Adult Low Dose Aspirin] 81 mg tablet,delayed release (DR/EC) 81 mg PO DAILY Qty: 30 RF: 0 apixaban 5 mg tablet 5 mg PO BID Qty: 60 RF: 0 Continued metformin 500 mg tablet 500 mg PO BID RF: 0 tamsulosin 0.4 mg capsule 0.4 mg PO DAILY RF: 0 nitroglycerin 0.4 mg tablet, sublingual 0.4 mg sublingual PRN PRN (Reason: Chest Pain) RF: 0 Changed olmesartan 20 mg tablet 40 mg PO DAILY Qty: 60 RF: 0 Discharge Orders: Discharge Order (Routine); Ordered 12/17/20 Ordered By: Emeka Moore Other Ambulatory Orders: Sestamibi Stress Test Request (Routine) Timeframe: 2 Days Facility: [facility] - Location: Card[facility] Diagnostic Laboratory Ordered By: Emeka Moore DME: Commode (Order) Location: None Selected Ordered By: Maxwell Islas DME: Miscellaneous (Order) Location: None Selected Ordered By: Emeka Moore DME: Wheelchair (Order) Location: None Selected Ordered By: Maxwell Islas Referrals: Britany Fuentes MD [Physician] - 1 week Maxwell Islas DPM [Physician] - 1 week Radhames Wong MD [Physician] - 1 week Kimani Durant [Primary Care Provider] - 4-7 days Discharge Diet: Advance as tolerated Discharge Activity: Increase activity as tolerated Activity Restrictions/Additional Instructions: Please call your doctor or present to emergency department if your condition worsens or you develop diarrhea, lightheadedness, fatigue or see blood in your stool or black stool. Please follow Dr. Islas's recommendations regarding your ankle fracture. Please keep blood pressure and heart rate log 3 times daily to present to primary care physician and Dr. Wong next visit for medication adjustment. 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
--- NOTE | 2020-12-17 11:41 | PM.PN ---
Subjective Subjective: Interval history: Stable well-controlled heart rate Vitals/I&O/Wt Last Vital Signs Temp 97.9 F 12/17/20 10:44 Pulse 79 12/17/20 10:44 Resp 18 12/17/20 10:44 BP 157/95 12/17/20 10:44 Pulse Ox 99 12/17/20 10:44 12/16/20 12/17/20 12/17/20 22:59 06:59 14:59 Intake Total 240 / 390 933 / 1323 240 / 240 Output Total 175 / 810 500 / 1310 350 / 350 Balance 65 / -420 433 / 13 -110 / -110 Physical Exam Narrative: EXAM NARRATIVE: GENERAL: Patient is alert, awake and oriented x3. NECK: No jugular vein distension. HEENT: No cyanosis. No icterus. No pallor. HEART: Irregularly rate S1 and S2. No murmur, rub or gallop. LUNGS: Clear to auscultate bilaterally. ABDOMEN: Soft, nontender and nondistended. Positive bowel sounds. No guarding, rebound or tenderness. CENTRAL NERVOUS SYSTEM: Grossly nonfocal. EXTREMITIES: Lower extremities without edema bilaterally. Data : 12/17/20 04:51 12/17/20 04:51 A&P Assessment and plan (1) Atrial flutter with rapid ventricular response: Currently patient converted back to sinus rhythm continue beta-alex, aspirin full dose as most likely it was postop A. fib due to hyperadrenergic state. Patient stable doing fine from cardiovascular perspective continue current regimen Status: Resolved (2) Ankle fracture: As per surgery Status: Resolved Qualifiers: Encounter type: initial encounter Fracture type: closed Laterality: right Qualified Code(s): S82.891A - Other fracture of right lower leg, initial encounter for closed fracture (3) Chest pain: Chest pressure radiating to both arm during atrial flutter and rapid ventricle response in the patient with history of hypertension and longstanding diabetes mellitus may be present demand ischemia. We recommend stress test to further evaluate. Patient during this admission is not interested in the stress test. We we will schedule him as an outpatient. Echocardiogram to assess LV function and any valvular abnormality. 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
== END 2020-12-17 13:19 | disposition home health service (06) | DRG 493 ==
LOC: ER 06:00 → MEDSURG 08:16 → CSU 12-16 19:35
PROVIDERS: Podiatrist Foot & Ankle Surgery; Admitting Provider Internal Medicine; Emergency Provider Emergency Medicine; PCP Physician Assistant Medical; Visit Provider Internal Medicine
PROC: 0QSG04Z Reposition Right Tibia with Internal Fixation Device, Open Approach (ICD-10-PCS; principal; 2020-12-16 07:00)
DX: S82.851A Displaced trimalleolar fracture of right lower leg, initial encounter for closed fracture (principal); I48.92 Unspecified atrial flutter; G45.9 Transient cerebral ischemic attack, unspecified; Z79.84 Long term (current) use of oral hypoglycemic drugs; W19.XXXA Unspecified fall, initial encounter; I10 Essential (primary) hypertension; E11.9 Type 2 diabetes mellitus without complications; Y92.003 Bedroom of unspecified non-institutional (private) residence as the place of occurrence of the external cause
CPT/HCPCS: 36415; 36416; 51798; 64450; 70450; 70551; 71045; 73610; 76000; 80053; 81003; 82962; 83036; 83735; 84484; 85025; 87635; 93005; 93306; 93880; 96372; 96374; 96375; 97110; 97161; 97165; 97530; 99285; A7015; C1713; G0378; J0690; J1100; J1650; J1815; J2270; J2370; J2704; J2795; J3010; J3490; J7030

== ENCOUNTER → 2020-12-23 12:02 | Outpatient (BNVA) | payer MEDICARE, SELFPAY | PROVIDERS: PCP Physician Assistant Medical; Visit Provider Podiatrist Foot & Ankle Surgery | DX: S82.841A Displaced bimalleolar fracture of right lower leg, initial encounter for closed fracture (principal); X58.XXXA Exposure to other specified factors, initial encounter | CPT/HCPCS: 73610 ==

== ENCOUNTER → 2021-01-06 14:14 | Outpatient (BNVA) | payer MEDICARE, SELFPAY | PROVIDERS: PCP Physician Assistant Medical; Visit Provider Podiatrist Foot & Ankle Surgery | DX: S82.841A Displaced bimalleolar fracture of right lower leg, initial encounter for closed fracture (principal); X58.XXXA Exposure to other specified factors, initial encounter | CPT/HCPCS: 73610 ==

== ENCOUNTER 2021-01-17 08:59 | Inpatient (IN) | payer MEDICARE, SELFPAY ==
[2021-01-17] VITALS (9 sets, daily range): BP systolic 146–193; BP diastolic 68–90; PULSE 58–87; RESP 13–18; TEMP 36.1–36.7; O2SAT 93–100; BMI 28.8
--- NOTE | 2021-01-17 10:18 | XRR_ITS ---
PROCEDURE INFORMATION: Exam: XR Chest Exam date and time: 01/17/2021 10:55 AM Age: 75 years old Clinical indication: Other: Ankle infection; Prior surgery; Additional info: Hospital admit TECHNIQUE: Imaging protocol: XR of the chest Views: 1 view. COMPARISON: CR XR chest 1V portable [id number] 12/13/2020 5:27 AM FINDINGS: Lungs: Unremarkable. No consolidation. Pleural spaces: Unremarkable. No pleural effusion. No pneumothorax. Heart/Mediastinum: Unremarkable. No cardiomegaly. Bones/joints: Unremarkable. XR/XR chest 1V portable [id number] IMPRESSION: No significant abnormality.
--- NOTE | 2021-01-17 10:20 | W.ED.EXTPRO ---
HPI - Extremity Problem General: Chief complaint: Extremity Problem,Nontraumatic Stated complaint: R ANKLE INJURY, SENT FROM DR. MORENO Time Seen by Provider: 01/17/21 09:18 Source: patient Mode of arrival: wheelchair Limitations: no limitations History of Present Illness: HPI Narrative: Patient is a very nice 75-year-old male who presents to ED today along with his at the recommendation of Dr. Moreno regarding a non-healing wound to his right ankle surgical site. Patient underwent a right trimalleolar fracture repair on 12/[address] Moreno. According to Dr. Moreno's note, patient has been fairly noncompliant regarding weightbearing status and elevation of the extremity. He is an uncontrolled diabetic. It was noted at one of his follow-up appointments that he had a wound to the lateral incision. Patient was placed on Bactrim but wound failed to improve. At his follow-up appointment today the wound was probed and apparently probed to the hardware thus prompting Dr. Moreno to send patient to the ED for IV antibiotics with a plan for hardware removal tomorrow. PMH is significant for DM, atrial flutter, HTN, and hyperlipidemia. MD Complaint: extremity swelling and other (wound) Location: right and lower extremity (ankle) Associated symptoms: Reports no associated symptoms; Deny chest pain or fever(s) Review of Systems Const: Denies: fever(s), chills, body aches, fatigue or malaise Card: Denies: chest pain Resp: Denies: dyspnea GI: Denies: nausea or vomiting Musc: Reports: joint pain, joint swelling and joint redness Skin/Breast: Reports: other (wound to R ankle) [facility] PFSH: Medical History Diabetes Hypertension Surgical History No pertinent past surgical history Family History Denies family history of Chronic kidney disease (CKD) Cancer Social History Smoking and tobacco status: never smoked Alcohol intake: never Lives independently: Yes Household members: spouse Housing: House Physical Exam Const: COMMON NORMALS: no acute distress, patient oriented x3, no limitations and alert GENERAL APPEARANCE: cooperative ORIENTATION/CONSCIOUSNESS: Yes awake, Yes oriented to person, Yes oriented to place and Yes oriented to time Resp: COMMON NORMALS: normal respiratory effort Extremity: GENERAL: Yes normal exam except as noted OTHER: R LE edema consistent with recent surgery. Medial incision to R ankle appears well. Lateral incision has ulcer present that Dr. Moreno stated probed to the hardware. Please refer to his detailed note regarding wound findings. Pulses intact. Cap refill normal. Neuro: COMMON NORMALS: patient oriented x3 SENSORIUM/ORIENTATION: Yes alert, Yes oriented to person, Yes oriented to place and Yes oriented to time Course Consultations: Consultation #1: Dr. Moreno-agrees with labs/IV abx selection, does not need any advanced imaging at this time (XR was performed in his clinic today), recommends admission to hospitalist, PICC line placement, plan will be for surgery tomorrow for hardware removal-does not have to DC Eliquis for this procedure Vital Signs: Vital signs: Vital Signs Temperature 97.7 F 01/17/21 10:08 Pulse Rate 58 L 01/17/21 10:52 Respiratory Rate 18 01/17/21 10:52 Blood Pressure 154/68 01/17/21 10:52 Pulse Oximetry 99 01/17/21 10:52 MDM - Extremity (Nontraumatic) MDM Narrative: Medical decision making narrative: I have spoken to Dr. Moreno in regards to patient care. He agrees with labs, blood culture, and current IV antibiotic selection. He does not need any further imaging at this time. His plan is for hardware removal tomorrow. He stated patient does not need to discontinue his Eliquis for this. Plan for PICC line for IV antibiotics. I have spoken to Dr. Grant who also evaluated patient and spoke to Dr. Rao for admission. Lab Data: Labs: Lab Results 01/17/21 01/17/21 01/17/21 Range/Units 10:40 10:40 10:40 WBC 6.1 (4.0-10.0) 10^3/ uL RBC 4.85 (4.1-5.3) 10^6/u L Hgb 14.4 (11.7-16.6) g/dL Hct 42.9 (42.0-52.0) % MCV 88.5 (80-94) fL MCH 29.7 (28.0-34.0) pg MCHC 33.6 (30.0-36.0) g/dL RDW 13.0 (12.1-15.1) % Plt Count 261 (130-400) 10^3/c mm MPV 9.9 (7.4-10.4) fL Neut % (Auto) 70.4 % Lymph % (Auto) 22.3 % [place] % (Auto) 6.1 % Eos % (Auto) 0.7 % Baso % (Auto) 0.3 % Neut # (Auto) 4.31 (1.8-7.7) 10^3/u L Lymph # (Auto) 1.4 (0.8-4.8) 10^3/u L [place] # (Auto) 0.4 (0.2-0.9) 10^3/u L Eos # (Auto) 0.0 (0.0-0.8) 10^3/u L Baso # (Auto) 0.0 (0.0-0.1) 10^3/u L Nucleated RBC % (a uto) 0 % Nucleated RBCs # 0.0 /100WBC Sodium 133 L (136-145) mmol/L Potassium 3.9 (3.5-5.1) mmol/L Chloride 96 L (98-107) mmol/L Carbon Dioxide 26 (22-29) mmol/L Anion Gap 14.9 (5-19) BUN 19 (8-23) mg/dL Creatinine 0.9 (0.7-1.2) mg/dL GFR Calculation Not Reportable Glucose 161 H (65-115) mg/dL Calculated Osmolal ity 282 L (285-295) mOsm/k g Lactic Acid 1.3 (0.5-2.2) mmol/L Calcium 9.5 (8.5-10.5) mg/dL Total Bilirubin 0.8 (0.15-1.2) mg/dL AST 26 (0-40) U/L ALT 21 (0-41) U/L Alkaline Phosphata se 129 (40-130) IU/L C-Reactive Protein 0.9 (0.0-4.9) mg/L Total Protein 8.0 (6.6-8.7) g/dL Albumin 4.5 (3.5-5.2) g/dL Globulin 3.5 (1.3-4.6) g/dL Discharge Plan Discharge Patient Disposition: Admitted As Inpatient Clinical Impression: Infection of lower extremity associated with hardware Condition: Stable Coding Level of Care Code 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
[2021-01-17 10:51] LABS: Basophils % 0.3 %; Eosinophils % 0.7 %; Hematocrit 42.9 % (42.0-52.0); Hemoglobin 14.4 g/dL (11.7-16.6); Lymphocytes # 1.4 10^3/uL (0.8-4.8); Lymphocytes % 22.3 %; Mean Corpuscular HGB Conc 33.6 g/dL (30.0-36.0); Mean Corpuscular Hemoglobin 29.7 pg (28.0-34.0); Mean Corpuscular Volume 88.5 fL (80-94); Mean Platelet Volume 9.9 fL (7.4-10.4); Monocytes # 0.4 10^3/uL (0.2-0.9); Monocytes % 6.1 %; Neutrophils # 4.31 10^3/uL (1.8-7.7); Neutrophils % 70.4 %; Nucleated Red Blood Cells % 0 %; Platelet Count 261 10^3/cmm (130-400); Red Blood Count 4.85 10^6/uL (4.1-5.3); White Blood Count 6.1 10^3/uL (4.0-10.0)
[2021-01-17] MEDS: vancomycin 1,000 MG in sodium chloride 0.9% 250 ML 250 MG IV (10:56)
[2021-01-17] MEDS: cefepime 1,000 MG in sodium chloride 0.9% (plus) 50 ML 100 MG IV (10:56)
[2021-01-17 11:08] LABS: Lactic Sepsis W/Reflex 1.3 mmol/L (0.5-2.2)
[2021-01-17 11:09] LABS: Alanine Aminotransferase 21 U/L (0-41); Albumin Level 4.5 g/dL (3.5-5.2); Alkaline Phosphatase 129 IU/L (40-130); Anion Gap 14.9 (5-19); Aspartate Amino Transferase 26 U/L (0-40); Blood Urea Nitrogen 19 mg/dL (8-23); C Reactive Protein 0.9 mg/L (0.0-4.9); Calcium 9.5 mg/dL (8.5-10.5); Carbon Dioxide 26 mmol/L (22-29); Chloride 96 mmol/L (98-107); Globulin 3.5 g/dL (1.3-4.6); Glucose 161 mg/dL (65-115); Osmolality Calculated 282 mOsm/kg (285-295); Potassium 3.9 mmol/L (3.5-5.1); Sodium 133 mmol/L (136-145); Total Bilirubin 0.8 mg/dL (0.15-1.2)
[2021-01-17 11:41] LABS: Erythrocyte Sedimentation Rate 21 mm/hr (0-10)
--- NOTE | 2021-01-17 12:14 | P.HP_ITS ---
Providers/Chief Complaint Chief Complaint: R ANKLE INJURY, SENT FROM DR. MORENO History of Present Illness Charles Mendoza is a 75 year old male who presented to the emergency department via podiatry for infected hardware right ankle. He has not improved, with Bactrim as an outpatient. He has been having drainage. He has not had any fever or chills. He was admitted December 13, with an ankle fracture following a fall. During that time he had an ORIF of his right ankle for his trimalleolar fracture. He was diagnosed with with atrial flutter following his surgery and was placed on anticoagulation. He was also diagnosed with a CVA. For this reason he was started on Eliquis. Echocardiogram at that time demonstrated normal EF, poor windows. MRI during that time demonstrated left supratentorial ischemia. Review of Systems General: Reports: 10 or more systems reviewed and unremarkable except in HPI and below Const: Denies: fever(s) or chills Eyes: Denies: change in vision ENMT: Denies: throat pain Card: Denies: chest pain Resp: Denies: dyspnea GI: Denies: abdominal pain : Denies: flank pain Musc: Reports: extremity pain; Denies: neck pain Skin/Breast: Denies: rash Neuro: Denies: headache(s) Psych: Denies: anxiety Endo: Denies: polyuria Stanley/Lymph: Denies: easy bruising All/Imm: Denies: urticaria Medications/Allergies Home Medications Medication Instructions Recorded Confirmed Last Taken Type metformin 500 mg PO BID 12/13/20 01/17/21 Unknown History nitroglycerin 0.4 mg SUBLINGUAL PRN PRN 12/13/20 01/17/21 Unknown History tamsulosin 0.4 mg PO DAILY 12/13/20 01/17/21 Unknown History hydrocodone-acetaminophen [[place]] 1 tab PO Q6H PRN #28 tab 12/17/20 01/17/21 Unknown Rx apixaban 5 mg tablet 5 mg PO BID #60 tab 01/13/21 01/17/21 Unknown Rx isosorbide mononitrate 20 mg tablet 10 mg PO BID #30 tab 01/13/21 01/17/21 Unknown Rx acetaminophen [Tylenol Extra 1,000 mg PO PRN 01/17/21 01/17/21 Unknown History Strength] albuterol sulfate [ProAir HFA] 2 puff INHALATION Q4H PRN 01/17/21 01/17/21 Unknown History aspirin [Adult Low Dose Aspirin] 81 mg PO QAM 01/17/21 01/17/21 01/17/21 History atorvastatin 80 mg PO QAM 01/17/21 01/17/21 01/17/21 History doxycycline hyclate 100 mg PO BID 01/17/21 01/17/21 01/17/21 05:30 History finasteride [Proscar] 5 mg PO QAM 01/17/21 01/17/21 01/17/21 History melatonin 1 tab PO BEDTIME PRN 01/17/21 01/17/21 Unknown History metoprolol tartrate 50 mg PO BID 01/17/21 01/17/21 01/17/21 05:30 History olmesartan 20 mg PO DAILY 01/17/21 01/17/21 01/17/21 05:30 History 20 mg Allergies Allergy/AdvReac Type Severity Reaction Status Date / Time steroids Allergy ADR-Hyperte Uncoded 01/17/21 10:17 nsion PFSH Acute PFSH: Medical History (Updated 01/17/21 @ 12:23 by Carlos A Rao MD) Atrial flutter Bimalleolar fracture of right ankle Cerebrovascular accident Diabetes Hypertension Surgical History (Updated 01/17/21 @ 12:21 by Carlos A Rao MD) History of tonsillectomy Family History Denies family history of Chronic kidney disease (CKD) Cancer Social History Smoking and tobacco status: never smoked Alcohol intake: never Lives independently: Yes Household members: spouse Housing: House Vitals/I&O/Wt Last Vital Signs Temp 97.7 F 01/17/21 10:08 Pulse 58 L 01/17/21 10:52 Resp 18 01/17/21 10:52 BP 154/68 01/17/21 10:52 Pulse Ox 99 01/17/21 10:52 Weight last 48 hrs Weight 113.398 kg Physical Exam Narrative: EXAM NARRATIVE: General exam is no apparent distress HEENT: Atraumatic normocephalic. Pupils equally weak and reactive. Oropharynx clear. Neck is supple no lymphadenopathy or thyromegaly Cardiovascular regular rate and rhythm without murmur, no S3 or S4 Lungs clear no wheezing or crackles Abdomen is soft with positive bowel sounds. No obvious organomegaly Extremities no cyanosis clubbing or edema. Right ankle and left with slight amount of swelling. Right with some surrounding erythema to his incision site laterally with drainage and tunneling. Skin see above Neuro no focal deficits Data : 01/17/21 10:40 01/17/21 10:40 Micro: Microbiology 01/17/21 10:43 Blood Culture - Preliminary Blood SPECIMEN COLLECTED 01/17/21 10:40 Blood Culture - Preliminary Blood SPECIMEN COLLECTED A&P Assessment and plan (1) Infection of lower extremity associated with hardware: With associated cellulitis. Recent fracture right ankle with ORIF. Has infected hardware. I have discussed with podiatry and the plan is to remove hardware tomorrow, and if unstable fra cture consider external fixation. Secondary to infected hardware will need IV antibiotics. Placed on cefepime and vancomycin from the emergency department. Continue at this point and will await cultures from surgery. Secondary to infected hardware will likely need IV antibiotics long-term. Will determine tomorrow and may require PICC placement. Status: Acute (2) Atrial flutter: History of atrial flutter. Appears to be in sinus rhythm currently and was on his last EKG from the hospital. On full dose anticoagulation with Eliquis. Have notified surgery of this but this will not preclude surgery. Hold for now and will restart following surgery if no complications. Status: Acute (3) Diabetes: Sliding scale insulin Status: Acute (4) Hypertension: Continue home medications Status: Acute (5) Cerebrovascular accident: Resume Eliquis, when safe from a surgical standpoint. 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
--- NOTE | 2021-01-17 12:28 | PC.PHAR ---
pt states his takes care of his medications-pts had a medication list-pts states the pt is still taking olmesartan 20mg po daily-[facility] daily [facility] 01[facility]13[facility]21 [facility] states this medication was picked up on saturday-pts states the doxycycline should be finished on saturdaydecember 20-
[2021-01-17 13:01] LABS: Add Urine Microscopic? NO; Charge for UA Resulting for Rev
[2021-01-17] MEDS: dextrose 5%-sod chloride 0.45% 1,000 ML 100 ML IV ×2 (13:08→23:51)
[2021-01-17 13:10] LABS: Bilirubin Urine Neg (Negative); Blood Urine Neg (Negative); Glucose Urine UA Norm (Normal); Ketones Urine Negative (Negative); Leukocyte Esterase Urine Negative (Negative); Nitrate Urine Negative (Negative); Protein Urine Neg (Negative); Urine Appearance Clear (CLEAR); Urine Color Yellow (Yellow); Urobilinogen Urine Norm (Negative); pH Urine 5 (5-7)
[2021-01-17 16:35] LABS: Glucose Point of Care 201 mg/dL (70-110)
--- NOTE | 2021-01-17 17:11 | P.CONIM_ITS ---
Providers/Reason For Consult Consulting Physican/Specialty*: Maxwell Islas D.P.M. Reason for Consult*: Exposed hardware right ankle Attending Physician: Carols A Rao MD History of Present Illness History of Present Illness 75-year-old diabetic male with exposed hardware at the right lateral ankle. He sustained a trimalleolar ankle fracture due to syncopal episode and underwent open reduction internal fixation of the right trimalleolar fracture 12/16/2020. I seen the patient in clinic today was able to visualize the lateral fibular plate and 2 screws to a wound at the lateral incision. Has been on Bactrim for the past week and a half outpatient has localized erythema and serosanguineous drainage and recommended admission to the hospital. Plans for deep hardware removal with possible application of external fixator. Review of Systems General: Reports: 10 or more systems reviewed and unremarkable except in HPI and below Const: Denies: fever(s) or chills Card: Denies: chest pain or palpitations Resp: Denies: productive cough GI: Denies: abdominal pain, nausea or vomiting : Denies: flank pain Musc: Reports: extremity swelling, joint pain, joint stiffness, limited range of motion and deformity Skin/Breast: Reports: erythema, sores, surgical incision, nail changes and change in hair Neuro: Reports: numbness in extremities, sensory changes and difficulty walking Psych: Denies: suicidal ideation Stanley/Lymph: Denies: easy bruising Meds/Allergies Home Medications and Allergies Home Medications Medication Instructions Recorded Confirmed Last Taken Type metformin 500 mg PO BID 12/13/20 01/17/21 01/17/21 05:30 History nitroglycerin 0.4 mg SUBLINGUAL PRN PRN 12/13/20 01/17/21 Unknown History tamsulosin 0.4 mg PO QAM 12/13/20 01/17/21 01/17/21 05:30 History hydrocodone-acetaminophen [[place]] 1 tab PO Q6H PRN #28 tab 12/17/20 01/17/21 Unknown Rx apixaban 5 mg tablet 5 mg PO BID #60 tab 01/13/21 01/17/21 01/17/21 05:30 Rx isosorbide mononitrate 20 mg tablet 10 mg PO BID #30 tab 01/13/21 01/17/21 01/17/21 05:30 Rx acetaminophen [Tylenol Extra 1,000 mg PO PRN 01/17/21 01/17/21 Unknown History Strength] albuterol sulfate [ProAir HFA] 2 puff INHALATION Q4H PRN 01/17/21 01/17/21 Unknown History aspirin [Adult Low Dose Aspirin] 81 mg PO QAM 01/17/21 01/17/21 01/17/21 History atorvastatin 80 mg PO QAM 01/17/21 01/17/21 01/17/21 History doxycycline hyclate 100 mg PO BID 01/17/21 01/17/21 01/17/21 05:30 History finasteride [Proscar] 5 mg PO QAM 01/17/21 01/17/21 01/17/21 History melatonin 1 tab PO BEDTIME PRN 01/17/21 01/17/21 Unknown History metoprolol tartrate 50 mg PO BID 01/17/21 01/17/21 01/17/21 05:30 History olmesartan 20 mg PO DAILY 01/17/21 01/17/21 01/17/21 05:30 History 20 mg Allergies Allergy/AdvReac Type Severity Reaction Status Date / Time steroids Allergy ADR-Hyperte Uncoded 01/17/21 10:17 nsion Current Medications Current Medications Generic Name Dose Route Start Last Admin Trade Name Freq PRN Reason Stop Dose Admin Dextrose/Sodium Chloride 1,000 mls @ 100 mls/hr 01/17/21 11:30 01/17/21 13:08 Dextrose 5%-Sod Chloride 0.45% IV 100 mls/hr .Q10H MARTHA Administration PFSH Acute PFSH: Medical History (Updated 01/17/21 @ 12:23 by Carlos A Rao MD) Atrial flutter Bimalleolar fracture of right ankle Cerebrovascular accident Diabetes Hypertension Surgical History (Updated 01/17/21 @ 12:21 by Carlos A Rao MD) History of tonsillectomy Family History Denies family history of Chronic kidney disease (CKD) Cancer Social History Smoking and tobacco status: never smoked Alcohol intake: never Lives independently: Yes Household members: spouse Housing: House Vitals/I&O/Wt Last Vital Signs Temp 98.1 F 01/17/21 16:00 Pulse 78 01/17/21 16:16 Resp 18 01/17/21 16:16 BP 178/84 01/17/21 16:00 Pulse Ox 97 01/17/21 16:16 01/17/21 01/17/21 01/17/21 06:59 14:59 22:59 Intake Total 300 / 300 Balance 300 / 300 Weight last 48 hrs Weight 250 lb Physical Exam Narrative: EXAM NARRATIVE: Patient is alert and oriented ?3 and in no acute distress. The following is a focused right lower extremity exam. VASCULAR: Dorsalis pedis and posterior tibial arteries palpable +2. Capillary refill time less than 3 seconds to the distal hallux bilaterally. Calf is supple and nontender proximally and distally. Mild edema at the operative site consistent with postoperative course. NEUROLOGICAL: Protective sensation intact to light touch. DERMATOLOGICAL: Wound at the right lateral ankle with serosanguineous drainage, wound probes to hardware. Erythema to the right ankle without proximal lymphangitic streaking. Able to visualize the plate at the distal fibula as well as 2 screw heads. MUSCULOSKELETAL: Tenderness about the operative site consistent with postoperative course. No pain with posterior calf squeeze. Further musculoskeletal exam deferred due to postoperative state. Data Micro: Micro: Microbiology 01/17/21 10:43 Blood Culture - Pr eliminary Blood SPECIMEN [facility] 01/17/21 10:40 Blood Culture - Pr eliminary Blood SPECIMEN [facility] A&P Additional A&P Information 75-year-old diabetic male with infected hardware right ankle. -Deep hardware removal, cultures and possible application of external fixator tomorrow at 1230 n.p.o. at midnight. -Empiric antibiotics for now may narrow once cultures yield further results -Strict nonweightbearing to the right lower extremity and elevate right foot above the hip while at rest. -My recommendation to the patient was to be placed at a half-way facility at discharge he is resistant to this. He does have a life partner that is capable and states that she is willing to be trained on at home antibiotic infusions their preference is a PICC line and discharge home. I asked them to reconsider this and discussed benefits of skilled nurse facility especially if there is a high frequency of infusions. Patient still refusing transfer to half-way facility wishing to be discharged home with a PICC line. -Medical management by hospitalist greatly appreciated, podiatry will follow. Dr. Islas D.P.M. cell phone [phone]. 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
[2021-01-17] MEDS: cyclobenzaprine 10 mg Tablet PO (17:48)
[2021-01-17] MEDS: metoprolol tartrate 50 mg Tablet PO (17:49)
[2021-01-17] MEDS: isosorbide mononitrate 20 mg Tablet 10 MG PO (17:57)
[2021-01-17] MEDS: vancomycin 1,500 MG/300 ML PIGGYBACK 200 MG IV (20:34)
[2021-01-17 20:59] LABS: Glucose Point of Care 171 mg/dL (70-110)
[2021-01-17] MEDS: cefepime 2,000 MG in sodium chloride 0.9% (plus) 50 ML 100 MG IV (22:38)
[2021-01-18] VITALS (23 sets, daily range): BP systolic 125–174; BP diastolic 62–93; PULSE 53–73; RESP 12–20; TEMP 36.1–36.8; O2SAT 94–100
[2021-01-18 06:01] LABS: Basophils % 0.4 %; Eosinophils # 0.1 10^3/uL (0.0-0.8); Eosinophils % 1.6 %; Hematocrit 37.7 % (42.0-52.0); Hemoglobin 12.8 g/dL (11.7-16.6); Lymphocytes # 1.4 10^3/uL (0.8-4.8); Lymphocytes % 24.9 %; Mean Corpuscular Hemoglobin 29.8 pg (28.0-34.0); Mean Corpuscular Volume 87.9 fL (80-94); Mean Platelet Volume 9.9 fL (7.4-10.4); Monocytes # 0.5 10^3/uL (0.2-0.9); Monocytes % 9.2 %; Neutrophils # 3.62 10^3/uL (1.8-7.7); Neutrophils % 63.7 %; Nucleated Red Blood Cells % 0 %; Platelet Count 225 10^3/cmm (130-400); Red Blood Count 4.29 10^6/uL (4.1-5.3); White Blood Count 5.7 10^3/uL (4.0-10.0)
[2021-01-18] MEDS: finasteride 5 mg Tablet PO (06:03)
[2021-01-18] MEDS: atorvastatin 40 mg Tablet 80 MG PO (06:03)
[2021-01-18] MEDS: tamsulosin 0.4 mg Capsule PO (06:03)
[2021-01-18 06:27] LABS: Alanine Aminotransferase 16 U/L (0-41); Albumin Level 3.7 g/dL (3.5-5.2); Alkaline Phosphatase 104 IU/L (40-130); Anion Gap 12.2 (5-19); Aspartate Amino Transferase 20 U/L (0-40); Blood Urea Nitrogen 15 mg/dL (8-23); Calcium 8.7 mg/dL (8.5-10.5); Carbon Dioxide 26 mmol/L (22-29); Chloride 102 mmol/L (98-107); Globulin 2.7 g/dL (1.3-4.6); Glucose 195 mg/dL (65-115); Osmolality Calculated 288 mOsm/kg (285-295); Potassium 4.2 mmol/L (3.5-5.1); Sodium 136 mmol/L (136-145); Total Bilirubin 0.5 mg/dL (0.15-1.2); Total Protein 6.4 g/dL (6.6-8.7)
--- NOTE | 2021-01-18 06:36 | PC.NURSE ---
Held morning aspirin and heparin since patient has surgery today. Waiting to ask Dr. Islas if he would like patient to have these.
[2021-01-18 06:39] LABS: Glucose Point of Care 193 mg/dL (70-110)
[2021-01-18] MEDS: vancomycin 1,500 MG/300 ML PIGGYBACK 200 MG IV ×2 (08:18→21:07)
[2021-01-18] MEDS: aspirin 81 mg EC Tablet PO (08:19)
[2021-01-18] MEDS: isosorbide mononitrate 20 mg Tablet 10 MG PO ×2 (08:19→17:18)
[2021-01-18] MEDS: losartan 50 mg Tablet PO (08:20)
[2021-01-18] MEDS: metoprolol tartrate 50 mg Tablet PO ×2 (08:20→17:18)
--- NOTE | 2021-01-18 10:36 | PC.CHAP ---
Pastoral Care Encounter/Spiritual Assessment Type of Contact [] Declined fold skiver visit [] Patient/Family/Request visit [] Outpatient visit [] Follow-up visit [] Physician referral [] Code/Alert [x] Routine visit [] Staff referral [] Actively dying [] Patient sleeping [] Family support [] [] Out of room [] Palliative care [] [] Receiving care in room [] Pre-surgical visit [] Trauma [] Long length of stay [] ICU visit [] Other: Relational/Emotional Strength [x] Patient feels connected with others/family/visitors/staff [] Distress [] Loneliness/isolation [] Abandonment Spirituality of Patient [x] Person of Bria [x] Attends Mandaen of their Bria [x] Believes in Prayer [] Reads Bible or Bahai materials [] There are Spiritual issues to be addressed Photographic Spotter Interventions [x] Prayer [x] Active listening [x] Non-anxious presence [x] Spiritual/emotional support [] Crisis/trauma care [] Spiritual counseling [] Bereavement support [] Provided bereavement packet [] Provided Bible/devotional materials [] Provided toy/stuffed animal, coloring book to patient or family member [] Provided Communion [] Anointing/[place] [] Salvation [] Completed spiritual assessment [] Other: Impact on Illness or Injury [] Angry [] Fearful [] Anxious [] Often cries [] Exhaustion [] Unable to work [] Unable to attend roman catholic [] Unable to walk/stand [] Unable to read [] Unable to drive [] Unable to eat/drink [] Unable to sleep [] Unable to be with family [] Patient intubated [] Other: Summary doing well Time spent with patient 10 min
--- NOTE | 2021-01-18 10:40 | PC.NURSE ---
surgery Pt was taken down to surgery around 1020.
[2021-01-18] MEDS: sodium chloride 0.9% 1,000 ML 30 ML IV (10:50)
--- NOTE | 2021-01-18 11:27 | ANES.PREANE2 ---
Pre-Anesthetic Assessment Pre-Anesthetic Assessment: Height/Weight: Height 1.98 m Weight 113.398 kg Temp Pulse Resp BP Pulse Ox 98.0 F 60 18 143/71 98 01/18/21 10:49 01/18/21 10:49 01/18/21 10:49 01/18/21 10:49 01/18/21 10:49 Preop Diagnosis: Right trimalleolar ankle fracture Proposed Procedure: Operation Date: 01/18/21 12:50 Proposed Procedures p Hardware Removal right ankle(Right) - Maxwell Islas DPM Familial anesthetic complications: None Was Beta Annette taken within 24 hours: N/A Was Clonidine taken within 24 hours: N/A Last intake: Intake Last Liquid Date 01/18/21 Last Liquid Time 08:30 Last Solid Date 01/17/21 Last Solid Time 14:00 Social: Social History: No alcohol and No tobacco Exam: Pre-Anes Outpt Exam: alert, oriented x 3, clear to auscultation bilaterally and regular rate & rhythm Airway: Cervical ROM: WNL MP: 3 Dentition: Partials CV/HEM: CV/HEM: Afib (occured after first ankle surgery - on apixaban) and HTN Metabolic: Metabolic: DM Neuropsych: Neuropsych: CVA and TIA Anesthetic Plan: ASA status: 3 Anesthesia: General Risk of > 500 ml blood loss (7ml/kg in children): No Meds/Allergies Current Medications: Current Medications Generic Name Dose Route Start Last Admin Trade Name Freq PRN Reason Stop Dose Admin Aspirin 81 mg 01/18/21 06:00 01/18/21 08:19 Aspirin 81 Mg Ec Tablet PO 81 mg QAM MARTHA Administration Atorvastatin Calci um 80 mg 01/18/21 06:00 01/18/21 06:03 Atorvastatin 40 Mg Tablet PO 80 mg QAM MARTHA Administration Cyclobenzaprine HC l 10 mg 01/17/21 16:55 01/17/21 17:48 Cyclobenzaprine 10 Mg Tablet PO 10 mg TID PRN Administration MUSCLE SPASMS Finasteride 5 mg 01/18/21 06:00 01/18/21 06:03 Finasteride 5 Mg Tablet PO 5 mg QAM MARTHA Administration Heparin Sodium (Be ef Lung) 5,000 unit 01/18/21 07:00 01/18/21 08:02 Heparin 5,000 Un it/Ml Inj 1 Ml SUBCUT Not Given Q12H MARTHA Dextrose/Sodium Ch loride 1,000 mls @ 100 m ls/hr 01/17/21 11:30 01/17/21 23:51 Dextrose 5%-Sod Chloride 0.45% IV 100 mls/hr .Q10H MARTHA Administration Vancomycin/PEG/NAD A/Lysine/Water 1,500 mg in 300 m ls @ 200 mls/hr 01/17/21 20:00 01/18/21 10:39 Vancocin IV Infused Q12H MARTHA Infusion Sodium Chloride 1,000 mls @ 30 ml s/hr 01/18/21 10:45 01/18/21 10:50 Sodium Chloride 0.9% IV 01/19/21 10:44 30 mls/hr .Q24H MARTHA Administration Insulin Aspart 0 unit 01/17/21 18:00 01/18/21 08:40 Insulin Aspart 1 00 Unit/1 Ml SUBCUT Not Given WM&BEDTIME MARTHA Protocol Isosorbide Mononit rate 10 mg 01/17/21 18:00 01/18/21 08:19 Isosorbide [place] itrate 20 Mg Table t PO 10 mg BID MARTHA Administration Losartan Potassium 50 mg 01/18/21 09:00 01/18/21 08:20 Losartan 50 Mg T ablet PO 50 mg DAILY MARTHA Administration Metoprolol Tartrat e 50 mg 01/17/21 18:00 01/18/21 08:20 Metoprolol Tartr ate 50 Mg Tablet PO 50 mg BID MARTHA Administration Tamsulosin HCl 0.4 mg 01/18/21 06:00 01/18/21 06:03 Tamsulosin 0.4 M g Capsule PO 0.4 mg QAM MARTHA Administration PFSH Anesthesia PFSH: Medical History (Updated 01/17/21 @ 22:07 by Radhames Wong MD) Atrial flutter Bimalleolar fracture of right ankle Cerebrovascular accident Chest pain Diabetes Hypertension Surgical History (Updated 01/17/21 @ 12:21 by Carlos A Rao MD) History of tonsillectomy Family History Denies family history of Chronic kidney disease (CKD) Cancer Social History Smoking and tobacco status: never smoked Alcohol intake: never Lives independently: Yes Household members: spouse Housing: House Data Anesthesia CBC & Chem 7: 01/18/21 05:47 01/18/21 05:47 Other Labs: Laboratory Results - last 48 hr 01/17/21 01/17/21 01/17/21 10:40 10:40 10:40 WBC 6.1 RBC 4.85 Hgb 14.4 Hct 42.9 MCV 88.5 MCH 29.7 MCHC 33.6 RDW 13.0 Plt Count 261 MPV 9.9 Neut % (Auto) 70.4 Lymph % (Auto) 22.3 [place] % (Auto) 6.1 Eos % (Auto) 0.7 Baso % (Auto) 0.3 Neut # (Auto) 4.31 Lymph # (Auto) 1.4 [place] # (Auto) 0.4 Eos # (Auto) 0.0 Baso # (Auto) 0.0 Nucleated RBC % (auto) 0 Nucleated RBCs # 0.0 ESR Sodium 133 L Potassium 3.9 Chloride 96 L Carbon Dioxide 26 Anion Gap 14.9 BUN 19 Creatinine 0.9 GFR Calculation Not Reportable Glucose 161 H POC Glucose Calculated Osmolality 282 L Lactic Acid 1.3 Calcium 9.5 Total Bilirubin 0.8 AST 26 ALT 21 Alkaline Phosphatase 129 C-Reactive Protein 0.9 Total Protein 8.0 Albumin 4.5 Globulin 3.5 Urine Color Urine Appearance Urine pH Ur Specific [place] Urine Protein Urine Glucose (UA) Urine Ketones Urine Blood Urine Nitrate Urine Bilirubin Urine Urobilinogen Ur Leukocyte Esterase 01/17/21 01/17/21 01/17/21 10:40 12:34 16:31 WBC RBC Hgb Hct MCV MCH MCHC RDW Plt Count MPV Neut % (Auto) Lymph % (Auto) [place] % (Auto) Eos % (Auto) Baso % (Auto) Neut # (Auto) Lymph # (Auto) [place] # (Auto) Eos # (Auto) Baso # (Auto) Nucleated RBC % (auto) Nucleated RBCs # ESR 21 H Sodium Potassium Chloride Carbon Dioxide Anion Gap BUN Creatinine GFR Calculation Glucose POC Glucose 201 H Calculated Osmolality Lactic Acid Calcium Total Bilirubin AST ALT Alkaline Phosphatase C-Reactive Protein Total Protein Albumin Globulin Urine Color Yellow Urine Appearance Clear Urine pH 5 Ur Specific [place] 1.020 Urine Protein Neg Urine Glucose (UA) Norm Urine Ketones Negative Urine Blood Neg Urine Nitrate Negative Urine Bilirubin Neg Urine Urobilinogen Norm Ur Leukocyte Esterase Negative 01/17/21 01/18/21 01/18/21 20:56 05:47 05:47 WBC 5.7 RBC 4.29 Hgb 12.8 Hct 37.7 L MCV 87.9 MCH 29.8 MCHC 34.0 RDW 13.0 Plt Count 225 MPV 9.9 Neut % (Auto) 63.7 Lymph % (Auto) 24.9 [place] % (Auto) 9.2 Eos % (Auto) 1.6 Baso % (Auto) 0.4 Neut # (Auto) 3.62 Lymph # (Auto) 1.4 [place] # (Auto) 0.5 Eos # (Auto) 0.1 Baso # (Auto) 0.0 Nucleated RBC % (auto) 0 Nucleated RBCs # 0.0 ESR Sodium 136 Potassium 4.2 Chloride 102 Carbon Dioxide 26 Anion Gap 12.2 BUN 15 Creatinine 0.9 GFR Calculation Not Reportable Glucose 195 H POC Glucose 171 H Calculated Osmolality 288 Lactic Acid Calcium 8.7 Total Bilirubin 0.5 AST 20 ALT 16 Alkaline Phosphatase 104 C-Reactive Protein Total Protein 6.4 L Albumin 3.7 Globulin 2.7 Urine Color Urine Appearance Urine pH Ur Specific [place] Urine Protein Urine Glucose (UA) Urine Ketones Urine Blood Urine Nitrate Urine Bilirubin Urine Urobilinogen Ur Leukocyte Esterase 01/18/21 06:28 WBC RBC Hgb Hct MCV MCH MCHC RDW Plt Count MPV Neut % (Auto) Lymph % (Auto) [place] % (Auto) Eos % (Auto) Baso % (Auto) Neut # (Auto) Lymph # (Auto) [place] # (Auto) Eos # (Auto) Baso # (Auto) Nucleated RBC % (auto) Nucleated RBCs # ESR Sodium Potassium Chloride Carbon Dioxide Anion Gap BUN Creatinine GFR Calculation Glucose POC Glucose 193 H Calculated Osmolality Lactic Acid Calcium Total Bilirubin AST ALT Alkaline Phosphatase C-Reactive Protein Total Protein Albumin Globulin Urine Color Urine Appearance Urine pH Ur Specific [place] Urine Protein Urine Glucose (UA) Urine Ketones Urine Blood Urine Nitrate Urine Bilirubin Urine Urobilinogen Ur Leukocyte Esterase Micro: Microbiology 01/17/21 10:43 Blood Culture - Preliminary Blood NEGATIVE TO DATE 01/17/21 10:40 Blood Culture - Preliminary Blood NEGATIVE TO DATE Cardiac Studies: No Data to Display
--- NOTE | 2021-01-18 11:28 | P.PN_ITS ---
Subjective Subjective: Interval history: Charles reports no concerns today. He reported he slept great last night. He has had them down for surgery currently. Medications: Reviewed: Yes Vitals/I&O/Wt Last Vital Signs Temp 98.0 F 01/18/21 10:49 Pulse 60 01/18/21 10:49 Resp 18 01/18/21 10:49 BP 143/71 01/18/21 10:49 Pulse Ox 98 01/18/21 10:49 01/17/21 01/18/21 01/18/21 22:59 06:59 14:59 Intake Total 420 / 720 850 / 1570 300 / 300 Output Total 400 / 400 950 / 1350 625 / 625 Balance 20 / 320 -100 / 220 -325 / -325 Weight last 48 hrs Weight 113.398 kg Physical Exam Narrative: EXAM NARRATIVE: General exam is no apparent distress Neck is supple no lymphadenopathy or thyromegaly Cardiovascular regular rate and rhythm without murmur, no S3 or S4 Lungs clear no wheezing or crackles Abdomen is soft with positive bowel sounds. No obvious organomegaly Extremities no cyanosis clubbing or edema. 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 Recent fracture right ankle with ORIF. Has infected hardware. Removal of hardware to occur today, with possible external fixation Continue cefepime and vancomycin Secondary to infected hardware he will need IV antibiotics long-term. Arrange for PICC line placement during this hospital stay ESR prior to surgery 21, CRP 0.9 Status: Acute (2) Atrial flutter: History of atrial flutter. Appears to be in sinus rhythm currently and was on his last EKG from the hospital. On full dose anticoagulation with Eliquis. This is on hold currently for surgery but plan to resume after surgery is completed Status: Acute Qualifiers: Atrial flutter type: typical Qualified Code(s): I48.3 - Typical atrial flutter (3) Diabetes: Sliding scale insulin Status: Acute (4) Hypertension: Continue home medications Status: Acute (5) Cerebrovascular accident: Resume Eliquis, when safe from a surgical standpoint. Continue statin Status: Acute Additional A&P Information Full code Heparin for DVT prophylaxis Attestations Medical Necessity Statement*: Needs continued hospitalization for IV antibiotics for cellulitis and definitive care of his infected hardware right ankle. Coding Level of Care Code Acute [employer] for Chg Fwd Diagnoses Infection of lower extremity associated with hardware T84.7XXA Atrial flutter I48.3 Atrial flutter type: typical Diabetes E11.9 Hypertension I10 Cerebrovascular accident I63.9
--- NOTE | 2021-01-18 12:07 | W.PM.OPSUD ---
Surgery/Procedure H&P Update DATE OF PROCEDURE: January 18, 2021 DATE H&P PERFORMED: 01/17/21 H&P UPDATE INFORMATION: I have reviewed H&P completed within last 30 days, I have examined patient prior to procedure, No changes to prior documentation and H&P is in [facility] [place] [facility] EMR on date indicated PREOP DIAGNOSIS: Right trimalleolar ankle fracture. exposed hardware right ankle. PLANNED PROCEDURE: Operation Date: 01/18/21 12:50 Proposed Procedures p Hardware Removal right ankle Possible application of external fixator right lower extremity(Right) - Maxwell Islas DPM
[2021-01-18] MEDS: lidocaine 1% INJ 20 mL INJECTION (12:30)
--- NOTE | 2021-01-18 13:48 | XR_ITS ---
WS: [id number] Right ankle, 3 views, 01/18/2021 Clinical Data: post op Comparison: Right ankle, 01/17/2021 Findings: The distal plate and screws have been removed from the right fibula. There are subcutaneous dina o joel the operative site. There is a shift of the talus from medial to lateral. There are oblique ortho pedic screws in the medial malleolus. The external skeletal fixation is seen in the tibia. XR/XR ankle RT min 3V* [id number] Impression: 1. Removal of distal right fibular plate. 2. Shift of the talus laterally compared to yesterday's x-ray.
--- NOTE | 2021-01-18 13:52 | P.PCN_ITS ---
PACU note PACU note: VSS, Good respiratory effort, report to LOGGING TRUCK DRIVER Post-Anesthesia Exam: awake
--- NOTE | 2021-01-18 13:52 | PM.PACU ---
PACU note PACU note: VSS, Good respiratory effort, report to REVENUE FIELD AGENT Post-Anesthesia Exam: awake
--- NOTE | 2021-01-18 13:59 | SUR.PHASEI ---
1359- ORAL AIRWAY OUT, SIMPLE MASK AT 6LPM SAT 100%
--- NOTE | 2021-01-18 14:00 | PM.OP ---
Operative Report Date of procedure: January 18, 2021 Pre-op Diagnosis: Right trimalleolar ankle fracture. exposed hardware right ankle. Post-op diagnosis: same Procedure Done: Incision and debridement with removal of deep hardware, application of external fixator right lower extremity. Implants: [place] [employer] 3 external fixator with tibial pin x2, calcaneal pin x1 and first metatarsal pin x1, 2-0 PDS, skin dina and 4-0 nylon. Surgeon: Maxwell Islas D.P.M. Clinical Dermatologist: Katia Anesthesia: MAC Estimated blood loss: Less than 5 mL Tourniquet time: 59 minutes IV fluids: None Urine output: None Complications: None Condition: stable Disposition: floor Brief History: 1 month out from open reduction internal fixation right trimalleolar ankle fracture with wound formation at the right lateral ankle with exposed hardware. Recommended hardware removal and application of external fixator if needed. Risks include pain, bleeding, numbness, infection, need for further surgical debridement, antibiotic therapy and further surgical intervention. Risk for DVT, PE, heart attack stroke and . Risk for delayed union, malunion, nonunion and posttraumatic arthritis of the right ankle. Patient interviewed preoperatively has been n.p.o. since midnight. Informed consent signed by myself and patient all questions answered to patient satisfaction no guarantees written, expressed or implied patient wishes to proceed. Procedure: Under mild sedation the patient was brought to the operating room and placed on the operating table in supine position. A timeout was performed. Anesthesia was then administered by the anesthesia service. Well-padded pneumatic tourniquet applied to the high calf of the right lower extremity. Right lower extremity was then scrubbed, prepped and draped utilizing normal aseptic technique. Right lower extremity was then elevated and tourniquet inflated to 250 mmHg. Of note preoperatively once anesthesia had been induced prior to scrubbing a total of 20 cc of one-to-one mixture 1% lidocaine and 0.5 Marcaine plain injected at the left lateral leg. Exposed hardware through wound at the right lateral malleolus. Over the previous incision a #15 blade utilized through skin with blunt dissection and sharp dissection carried down through subcutaneous tissue to the plate and screws at the left lateral fibula all bleeders were ligated and cauterized as necessary care was taken to retract and preserve neurovascular and tendinous structures. All screws and plate removed from the right fibula this was passed per operative field. There is serous drainage noted no heavy purulence, bone density was diminished however there is no discoloration. The area of decreased bone density was directly at the fracture site there was no significant interval of healing at the fibular fracture this was still mobile. Incision site was flushed with copious amounts of sterile saline solution. Debridement of devitalized tissue was performed sharply and passed from operative field. Incision was then flushed again with saline solution and closed utilizing 2-0 PDS and skin dina. Next a [employer] 3 external fixator was applied to stabilize the right trimalleolar ankle fracture this consisted of 2 tibial pins 5 mm in diameter bicortical confirmed orientation utilizing C arm utilized a fixed 30 degree post. Transaxial calcaneal pin and pain at the first metatarsal also utilized and secured with kickstand in place. Ankle is stabilized utilizing external fixator and placement of pins confirmed with fluoroscopy noted to be excellent in all 3 planes. Pin sites were dressed with Xeroform, 2 inch Violet[place] and paper tape. Ankle lateral incision dressed with Adaptic, sterile 4 x 4, Kerlix and tape. Tourniquet was deflated and a prompt hyperemic response was noted to the distal digits of the right lower extremity. Patient tolerated the procedure and anesthesia well and was transferred to the PACU with vital signs stable and vascular status intact. After period of postoperative monitoring he will be transferred back to the floor will continue empiric IV antibiotics plans for PICC line and likely discharge home with home health and antibiotic infusions for 6 weeks will remain strict nonweightbearing to the right lower extremity at this time plans for removal of external fixator in approximately 4 to 6 weeks.
[2021-01-18] MEDS: HYDROcodone-acetaminophen 10-325 mg Tablet 1 TAB PO ×2 (14:40→21:07)
[2021-01-18] MEDS: cefepime 2,000 MG in sodium chloride 0.9% (plus) 50 ML 100 MG IV (14:40)
[2021-01-18] MEDS: dextrose 5%-sod chloride 0.45% 1,000 ML 100 ML IV (14:41)
--- NOTE | 2021-01-18 15:50 | ANE.PACU2 ---
Inpatient post-anesthesia follow up: Airway intact: Yes Vital signs: Temperature 97.0 F Pulse Rate [Right Radial] 62 Pulse Rate 73 Respiratory Rate 14 Blood Pressure [Le ft Arm] 146/75 Blood Pressure 164/93 Pulse Oximetry 97 Oxygen Delivery Me thod Room Air Oxygen Flow Rate 6 Fraction of Inspir ed Oxygen Hydration adequate: Yes Nausea and vomiting: No Pain level: 3 Mental status: Baseline
[2021-01-18] MEDS: morphine 4 mg/mL SDV 1 mL IVP (17:16)
[2021-01-18 17:25] LABS: Glucose Point of Care 176 mg/dL (70-110)
[2021-01-18] MEDS: cyclobenzaprine 10 mg Tablet PO (18:25)
[2021-01-18] MEDS: morphine 4 mg/mL SDV 1 mL 2 MG IVP (19:23)
--- NOTE | 2021-01-18 19:32 | XR_ITS ---
WS: [id number] Right ankle, 3 views, 01/18/2021, 1945 hours Clinical Data: s/p external fixator adjustment Comparison: Right ankle, 01/18/2021, 1415 hours Findings: The external skeletal fixator device was adjusted. The talus is still lateral relative to the tibia. The oblique screws of the medial malleolus remain the same. There are dina overlying the distal ri ght fibula. XR/XR ankle RT min 3V* [id number] Impression: Adjustment of external skeletal fixation.
[2021-01-18 20:43] LABS: Vancomycin Trough 15.7 ug/mL (10-15)
[2021-01-18 20:45] LABS: Glucose Point of Care 157 mg/dL (70-110)
[2021-01-18] MEDS: apixaban 5 mg Tablet PO (21:07)
[2021-01-19] VITALS (17 sets, daily range): BP systolic 103–163; BP diastolic 59–84; PULSE 59–80; RESP 13–21; TEMP 36.8–37.1; O2SAT 93–99
--- NOTE | 2021-01-19 | SCC_ITS ---
Procedure Done: Closed reduction right ankle fracture and manipulation of external fixator. 7 seconds of fluoroscopic guidance, for a cumulative dose of 0.178 mGy, was provided to Dr. Islas by the radiology department. C-arm images of the RIGHT ankle were saved for the patient's permanent record. [facility]ENTERWhitney
[2021-01-19] MEDS: dextrose 5%-sod chloride 0.45% 1,000 ML 100 ML IV ×2 (02:15→20:19)
[2021-01-19] MEDS: cefepime 2,000 MG in sodium chloride 0.9% (plus) 50 ML 100 MG IV ×2 (02:16→15:10)
[2021-01-19 05:01] LABS: Basophils % 0.2 %; Eosinophils # 0.1 10^3/uL (0.0-0.8); Eosinophils % 1.7 %; Hematocrit 38.8 % (42.0-52.0); Hemoglobin 12.9 g/dL (11.7-16.6); Lymphocytes # 1.1 10^3/uL (0.8-4.8); Lymphocytes % 18.7 %; Mean Corpuscular HGB Conc 33.2 g/dL (30.0-36.0); Mean Corpuscular Hemoglobin 29.9 pg (28.0-34.0); Mean Corpuscular Volume 89.8 fL (80-94); Mean Platelet Volume 9.9 fL (7.4-10.4); Monocytes # 0.5 10^3/uL (0.2-0.9); Monocytes % 8.8 %; Neutrophils # 4.22 10^3/uL (1.8-7.7); Neutrophils % 70.4 %; Nucleated Red Blood Cells % 0 %; Platelet Count 204 10^3/cmm (130-400); Red Blood Count 4.32 10^6/uL (4.1-5.3); Red Cell Distribution Width 13.2 % (12.1-15.1)
[2021-01-19 05:15] LABS: Anion Gap 12.8 (5-19); Blood Urea Nitrogen 10 mg/dL (8-23); Calcium 8.8 mg/dL (8.5-10.5); Carbon Dioxide 26 mmol/L (22-29); Chloride 101 mmol/L (98-107); Glucose 164 mg/dL (65-115); Osmolality Calculated 285 mOsm/kg (285-295); Potassium 3.8 mmol/L (3.5-5.1); Sodium 136 mmol/L (136-145)
[2021-01-19] MEDS: HYDROcodone-acetaminophen 10-325 mg Tablet 1 TAB PO ×2 (05:37→15:11)
[2021-01-19] MEDS: aspirin 81 mg EC Tablet PO (05:37)
[2021-01-19] MEDS: tamsulosin 0.4 mg Capsule PO (05:37)
[2021-01-19] MEDS: atorvastatin 40 mg Tablet 80 MG PO (05:37)
[2021-01-19] MEDS: finasteride 5 mg Tablet PO (05:37)
[2021-01-19 06:29] LABS: Glucose Point of Care 176 mg/dL (70-110)
--- NOTE | 2021-01-19 06:49 | PM.PN ---
Subjective Subjective: Interval history: Patient seen bedside this morning. Recommending closed reduction with manipulation of external fixator right ankle for further reduction. He will be n.p.o. with plans for sedation and closed reduction today at noon. Vitals/I&O/Wt Last Vital Signs Temp 98.5 F 01/19/21 04:00 Pulse 69 01/19/21 04:00 Resp 18 01/19/21 04:00 BP 163/84 01/19/21 04:00 Pulse Ox 99 01/19/21 04:00 01/18/21 01/18/21 01/19/21 14:59 22:59 06:59 Intake Total 1300 / 1300 1050 / 2350 1350 / 3700 Output Total 630 / 630 500 / 1130 1000 / 2130 Balance 670 / 670 550 / 1220 350 / 1570 Weight last 48 hrs Weight 250 lb Physical Exam Narrative: EXAM NARRATIVE: Patient is alert and oriented ?3 and in no acute distress. The following is a focused right lower extremity exam. VASCULAR: Dorsalis pedis and posterior tibial arteries palpable +2. Capillary refill time less than 3 seconds to the distal hallux bilaterally. Calf is supple and nontender proximally and distally. Mild edema at the operative site consistent with postoperative course. NEUROLOGICAL: Protective sensation intact to light touch. DERMATOLOGICAL: Pin sites that external fixator at the tibia, calcaneus and first metatarsal are without irritation, erythema or drainage. No strikethrough bleeding at postoperative dressing lateral ankle. MUSCULOSKELETAL: Tenderness about the operative site consistent with postoperative course. No pain with posterior calf squeeze. Able to wiggle toes on command. Further musculoskeletal exam deferred due to postoperative state. Data : 01/19/21 04:40 01/19/21 04:40 Micro: Microbiology 01/17/21 10:43 Blood Culture - Preliminary Blood NEGATIVE TO DATE 01/17/21 10:40 Blood Culture - Preliminary Blood NEGATIVE TO DATE A&P Additional A&P Information 75-year-old diabetic male with infected hardware right ankle. -Was made n.p.o. this morning in preparation for closed reduction and manipulation of external fixator right lower extremity. -Wound cultures pending. -Plans for PICC line and 6 weeks of IV antibiotics -Empiric antibiotics for now may narrow once cultures yield further results -Strict nonweightbearing to the right lower extremity and elevate right foot above the hip while at rest. -Medical management by hospitalist greatly appreciated, podiatry will follow. Follow-up scheduled in podiatry clinic January 24, [address] Goodman PowellP.Shabana. cell phone [phone]. 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
[2021-01-19] MEDS: metoprolol tartrate 50 mg Tablet PO ×2 (08:15→18:08)
[2021-01-19] MEDS: losartan 50 mg Tablet PO (08:15)
[2021-01-19] MEDS: isosorbide mononitrate 20 mg Tablet 10 MG PO ×2 (08:16→18:08)
[2021-01-19] MEDS: vancomycin 1,500 MG/300 ML PIGGYBACK 200 MG IV ×2 (08:18→20:18)
--- NOTE | 2021-01-19 08:51 | PM.PN ---
Subjective Subjective: Interval history: Charles reports he is doing okay now. Pain is under control. Going back to surgery around noon for reduction of fracture. Medications: Reviewed: Yes Vitals/I&O/Wt Last Vital Signs Temp 98.5 F 01/19/21 04:00 Pulse 69 01/19/21 07:25 Resp 16 01/19/21 07:25 BP 146/76 01/19/21 08:15 Pulse Ox 97 01/19/21 07:25 01/18/21 01/19/21 01/19/21 22:59 06:59 14:59 Intake Total 1050 / 2350 1350 / 3700 Output Total 500 / 1130 1000 / 2130 450 / 450 Balance 550 / 1220 350 / 1570 -450 / -450 Weight last 48 hrs Weight 113.398 kg Physical Exam Narrative: EXAM NARRATIVE: General exam is no apparent distress Neck is supple no lymphadenopathy or thyromegaly Cardiovascular regular rate and rhythm without murmur, no S3 or S4 Lungs clear no wheezing or crackles Abdomen is soft with positive bowel sounds. No obvious organomegaly Extremities no cyanosis clubbing or edema. Dressing right lower extremity intact Data : 01/19/21 04:40 01/19/21 04:40 Micro: Microbiology 01/17/21 10:43 Blood Culture - Preliminary Blood NEGATIVE TO DATE 01/17/21 10:40 Blood Culture - Preliminary Blood NEGATIVE TO DATE A&P Assessment and plan (1) Infection of lower extremity associated with hardware: With associated cellulitis. This is improving Recent fracture right ankle with ORIF. Has infected hardware. Removal of hardware to occurred January 18 and external fixation placed Continue cefepime and vancomycin currently and awaiting cultures Secondary to infected hardware he will need IV antibiotics long-term. PICC line ordered ESR prior to surgery 21, CRP 0.9 Status: Acute (2) Atrial flutter: History of atrial flutter. Appears to be in sinus rhythm currently and was on his last EKG from the hospital. Eliquis has been resumed Status: Acute Qualifiers: Atrial flutter type: typical Qualified Code(s): I48.3 - Typical atrial flutter (3) Diabetes: Sliding scale insulin Status: Acute (4) Hypertension: Continue home medications Status: Acute (5) Cerebrovascular accident: Continue Eliquis Continue statin Status: Acute Additional A&P Information Full code Eliquis will suffice for DVT prophylaxis No need for laboratory tomorrow Attestations Medical Necessity Statement*: Needs continued hospital stay for IV antibiotics related to infected hardware right ankle and surgery today for reduction of fracture Coding Level of Care Code Acute Communication Professor for g Fwd Diagnoses Infection of lower extremity associated with hardware T84.7XXA Atrial flutter I48.3 Atrial flutter type: typical Diabetes E11.9 Hypertension I10 Cerebrovascular accident I63.9
[2021-01-19] MEDS: sodium chloride 0.9% 1,000 ML 30 ML IV (11:26)
--- NOTE | 2021-01-19 11:33 | ANES.PREANE2 ---
Pre-Anesthetic Assessment Pre-Anesthetic Assessment: Height/Weight: Height 1.98 m Weight 113.398 kg Temp Pulse Resp BP Pulse Ox 98.4 F 59 L 18 132/73 96 01/19/21 11:09 01/19/21 11:09 01/19/21 11:09 01/19/21 11:09 01/19/21 11:09 Preop Diagnosis: Right trimalleolar ankle fracture. exposed hardware right ankle. Proposed Procedure: Operation Date: 01/18/21 12:50 Proposed Procedures p Hardware Removal right ankle(Right) - Maxwell Islas DPM Operation Date: 01/19/21 12:00 Proposed Procedures p adjustment of external fixator(Right) - Maxwell Islas DPM Familial anesthetic complications: none Was Beta Annette taken within 24 hours: Yes Was Clonidine taken within 24 hours: Yes Last intake: Intake Last Liquid Date 01/18/21 Last Liquid Time 08:30 Last Solid Date 01/17/21 Last Solid Time 14:00 Social: Social History: No alcohol and No tobacco Exam: Pre-Anes Outpt Exam: alert, oriented x 3, clear to auscultation bilaterally and regular rate & rhythm Airway: Cervical ROM: WNL MP: 3 Dentition: Partials CV/HEM: CV/HEM: Afib and HTN Metabolic: Metabolic: DM Neuropsych: Neuropsych: CVA Anesthetic Plan: ASA status: 3 Anesthesia: General Risk of > 500 ml blood loss (7ml/kg in children): No Meds/Allergies Current Medications: Current Medications Generic Name Dose Route Start Last Admin Trade Name Freq PRN Reason Stop Dose Admin Hydrocodone Bitart /Acetaminophen 1 tab 01/17/21 15:00 01/19/21 05:37 Hydrocodone-Acet aminophen 10-325 M g Tablet PO 1 tab Q6H PRN Administration pain Apixaban 5 mg 01/18/21 21:00 01/19/21 08:16 Apixaban 5 Mg Ta blet PO Not Given BID@0900,2100 MARTHA Aspirin 81 mg 01/18/21 06:00 01/19/21 05:37 Aspirin 81 Mg Ec Tablet PO 81 mg QAM MARTHA Administration Atorvastatin Calci um 80 mg 01/18/21 06:00 01/19/21 05:37 Atorvastatin 40 Mg Tablet PO 80 mg QAM MARTHA Administration Cyclobenzaprine HC l 10 mg 01/17/21 16:55 01/18/21 18:25 Cyclobenzaprine 10 Mg Tablet PO 10 mg TID PRN Administration MUSCLE SPASMS Finasteride 5 mg 01/18/21 06:00 01/19/21 05:37 Finasteride 5 Mg Tablet PO 5 mg QAM MARTHA Administration Dextrose/Sodium Ch loride 1,000 mls @ 100 m ls/hr 01/17/21 11:30 01/19/21 02:15 Dextrose 5%-Sod Chloride 0.45% IV 100 mls/hr .Q10H MARTHA Administration Vancomycin/PEG/NAD A/Lysine/Water 1,500 mg in 300 m ls @ 200 mls/hr 01/17/21 20:00 01/19/21 08:18 Vancocin IV 200 mls/hr Q12H MARTHA Administration Cefepime HCl 2,000 mg/ Sodium 50 mls @ 100 mls/ hr 01/19/21 03:00 01/19/21 03:49 Chloride IV Infused Q12H MARTHA Infusion Protocol Sodium Chloride 1,000 mls @ 30 ml s/hr 01/19/21 11:15 01/19/21 11:26 Sodium Chloride 0.9% IV 01/20/21 11:14 30 mls/hr .Q24H MARTHA Administration Insulin Aspart 0 unit 01/18/21 18:00 01/19/21 08:15 Insulin Aspart 1 00 Unit/1 Ml SUBCUT 2 unit TIDWM MARTHA Administration Protocol Isosorbide Mononit rate 10 mg 01/17/21 18:00 01/19/21 08:16 Isosorbide [place] itrate 20 Mg Table t PO 10 mg BID MARTHA Administration Losartan Potassium 50 mg 01/18/21 09:00 01/19/21 08:15 Losartan 50 Mg T ablet PO 50 mg DAILY MARTHA Administration Metoprolol Tartrat e 50 mg 01/17/21 18:00 01/19/21 08:15 Metoprolol Tartr ate 50 Mg Tablet PO 50 mg BID MARTHA Administration Morphine Sulfate 2 mg 01/18/21 18:34 01/18/21 19:23 Morphine 4 Mg/Ml Sdv 1 Ml IVP 2 mg Q4H PRN Administration SEVERE PAIN Tamsulosin HCl 0.4 mg 01/18/21 06:00 01/19/21 05:37 Tamsulosin 0.4 M g Capsule PO 0.4 mg QAM MARTHA Administration PFSH Anesthesia PFSH: Medical History (Updated 01/17/21 @ 22:07 by Radhames Wong MD) Atrial flutter Bimalleolar fracture of right ankle Cerebrovascular accident Chest pain Diabetes Hypertension Surgical History (Updated 01/17/21 @ 12:21 by Carlos A Rao MD) History of tonsillectomy Family History Denies family history of Chronic kidney disease (CKD) Cancer Social History Smoking and tobacco status: never smoked Alcohol intake: never Lives independently: Yes Household members: spouse Housing: House Data Anesthesia CBC & Chem 7: 01/19/21 04:40 01/19/21 04:40 Other Labs: Laboratory Results - last 48 hr 01/17/21 01/17/21 01/17/21 10:40 12:34 16:31 WBC RBC Hgb Hct MCV MCH MCHC RDW Plt Count MPV Neut % (Auto) Lymph % (Auto) [place] % (Auto) Eos % (Auto) Baso % (Auto) Neut # (Auto) Lymph # (Auto) [place] # (Auto) Eos # (Auto) Baso # (Auto) Nucleated RBC % (auto) Nucleated RBCs # ESR 21 H Sodium Potassium Chloride Carbon Dioxide Anion Gap BUN Creatinine GFR Calculation Glucose POC Glucose 201 H Calculated Osmolality Calcium Total Bilirubin AST ALT Alkaline Phosphatase Total Protein Albumin Globulin Urine Color Yellow Urine Appearance Clear Urine pH 5 Ur Specific [place] 1.020 Urine Protein Neg Urine Glucose (UA) Norm Urine Ketones Negative Urine Blood Neg Urine Nitrate Negative Urine Bilirubin Neg Urine Urobilinogen Norm Ur Leukocyte Esterase Negative Vancomycin Trough 01/17/21 01/18/21 01/18/21 20:56 05:47 05:47 WBC 5.7 RBC 4.29 Hgb 12.8 Hct 37.7 L MCV 87.9 MCH 29.8 MCHC 34.0 RDW 13.0 Plt Count 225 MPV 9.9 Neut % (Auto) 63.7 Lymph % (Auto) 24.9 [place] % (Auto) 9.2 Eos % (Auto) 1.6 Baso % (Auto) 0.4 Neut # (Auto) 3.62 Lymph # (Auto) 1.4 [place] # (Auto) 0.5 Eos # (Auto) 0.1 Baso # (Auto) 0.0 Nucleated RBC % (auto) 0 Nucleated RBCs # 0.0 ESR Sodium 136 Potassium 4.2 Chloride 102 Carbon Dioxide 26 Anion Gap 12.2 BUN 15 Creatinine 0.9 GFR Calculation Not Reportable Glucose 195 H POC Glucose 171 H Calculated Osmolality 288 Calcium 8.7 Total Bilirubin 0.5 AST 20 ALT 16 Alkaline Phosphatase 104 Total Protein 6.4 L Albumin 3.7 Globulin 2.7 Urine Color Urine Appearance Urine pH Ur Specific [place] Urine Protein Urine Glucose (UA) Urine Ketones Urine Blood Urine Nitrate Urine Bilirubin Urine Urobilinogen Ur Leukocyte Esterase Vancomycin Trough 01/18/21 01/18/21 01/18/21 06:28 16:58 19:31 WBC RBC Hgb Hct MCV MCH MCHC RDW Plt Count MPV Neut % (Auto) Lymph % (Auto) [place] % (Auto) Eos % (Auto) Baso % (Auto) Neut # (Auto) Lymph # (Auto) [place] # (Auto) Eos # (Auto) Baso # (Auto) Nucleated RBC % (auto) Nucleated RBCs # ESR Sodium Potassium Chloride Carbon Dioxide Anion Gap BUN Creatinine GFR Calculation Glucose POC Glucose 193 H 176 H Calculated Osmolality Calcium Total Bilirubin AST ALT Alkaline Phosphatase Total Protein Albumin Globulin Urine Color Urine Appearance Urine pH Ur Specific [place] Urine Protein Urine Glucose (UA) Urine Ketones Urine Blood Urine Nitrate Urine Bilirubin Urine Urobilinogen Ur Leukocyte Esterase Vancomycin Trough 15.7 H 01/18/21 01/19/21 01/19/21 20:37 04:40 04:40 WBC 6.0 RBC 4.32 Hgb 12.9 Hct 38.8 L MCV 89.8 MCH 29.9 MCHC 33.2 RDW 13.2 Plt Count 204 MPV 9.9 Neut % (Auto) 70.4 Lymph % (Auto) 18.7 [place] % (Auto) 8.8 Eos % (Auto) 1.7 Baso % (Auto) 0.2 Neut # (Auto) 4.22 Lymph # (Auto) 1.1 [place] # (Auto) 0.5 Eos # (Auto) 0.1 Baso # (Auto) 0.0 Nucleated RBC % (auto) 0 Nucleated RBCs # 0.0 ESR Sodium 136 Potassium 3.8 Chloride 101 Carbon Dioxide 26 Anion Gap 12.8 BUN 10 Creatinine 0.9 GFR Calculation Not Reportable Glucose 164 H POC Glucose 157 H Calculated Osmolality 285 Calcium 8.8 Total Bilirubin AST ALT Alkaline Phosphatase Total Protein Albumin Globulin Urine Color Urine Appearance Urine pH Ur Specific [place] Urine Protein Urine Glucose (UA) Urine Ketones Urine Blood Urine Nitrate Urine Bilirubin Urine Urobilinogen Ur Leukocyte Esterase Vancomycin Trough 01/19/21 06:23 WBC RBC Hgb Hct MCV MCH MCHC RDW Plt Count MPV Neut % (Auto) Lymph % (Auto) [place] % (Auto) Eos % (Auto) Baso % (Auto) Neut # (Auto) Lymph # (Auto) [place] # (Auto) Eos # (Auto) Baso # (Auto) Nucleated RBC % (auto) Nucleated RBCs # ESR Sodium Potassium Chloride Carbon Dioxide Anion Gap BUN Creatinine GFR Calculation Glucose POC Glucose 176 H Calculated Osmolality Calcium Total Bilirubin AST ALT Alkaline Phosphatase Total Protein Albumin Globulin Urine Color Urine Appearance Urine pH Ur Specific [place] Urine Protein Urine Glucose (UA) Urine Ketones Urine Blood Urine Nitrate Urine Bilirubin Urine Urobilinogen Ur Leukocyte Esterase Vancomycin Trough Micro: Microbiology 01/18/21 17:28 Gram Stain - Final Ankle - Right Wound Culture - Preliminary Gram Negative Rods 01/17/21 10:43 Blood Culture - Preliminary Blood NEGATIVE TO DATE 01/17/21 10:40 Blood Culture - Preliminary Blood NEGATIVE TO DATE Cardiac Studies: No Data to Display
--- NOTE | 2021-01-19 13:08 | PM.OP ---
Operative Report Date of procedure: January 19, 2021 Pre-op Diagnosis: Right trimalleolar ankle fracture. exposed hardware right ankle. Post-op diagnosis: same Procedure Done: Closed reduction right ankle fracture and manipulation of external fixator. Implants: None Specimens removed/disposition: None Pathology: None Surgeon: Maxwell Islas Olive Brine Tester: Terrance Anesthesia: MAC Estimated blood loss: Less than 5 mL Tourniquet time: None IV fluids: None Urine output: None Complications: None Findings: Congruent ankle mortise post reduction Condition: stable Disposition: floor Brief History: Patient underwent incision and debridement with hardware removal and application of external fixator yesterday. Talus laterally displaced and I recommended closed reduction and manipulation of external fixator. Patient is agreeable wishes to proceed. Can be done under sedation. Procedure: Under mild sedation the patient was brought to the operating room he was left on the rney timeout was performed anesthesia administered by the anesthesia service. Once anesthesia had been induced coupling's of the external fixator were loosened by hand and a manual reduction of the right ankle trimalleolar fracture was performed utilizing reverse mechanism of injury. Position improved to anatomic reduction and congruent mortise confirmed with mini C arm. Maintaining the reduction in all coupling's were retightened and adjustments as necessary made to the external fixator and hand tightened. Final C arm confirmed congruent ankle mortise. Patient tolerated procedure and anesthesia well and was transferred to the PACU with vital signs stable and vascular status intact. He will be transferred back to the floor is resuming his empiric antibiotics. Patient okay for discharge home from podiatry standpoint will be following up in podiatry clinic Saturday next January 24, 2021 at 9 AM. He is to remain strict nonweightbearing to the right lower extremity. Is to elevate his right foot while at rest. I will be trending his labs weekly and monitoring his inflammatory markers as well as monitoring systemic response to empiric and oral antibiotics.
[2021-01-19] MEDS: fentaNYL 50 mcg/mL INJ 2mL IVP ×2 (13:20→13:25)
--- NOTE | 2021-01-19 13:27 | XR_ITS ---
WS: [id number] Right ankle, 3 views, today Clinical Data: post op reduction Comparison: Right ankle, 01/18/2021, 1946 hours. Findings: The talus has been shifted medially and now is in good alignment with the tibia. The external skeleta l fixation in the foot is noted. The medial malleolar fracture is reduced with 2 orthopedic screws. T here are lateral dina overlying the site of the distal right fibular fracture. XR/XR ankle RT min 3V* [id number] Impression: Repositioning of the right talus medially for better apposition with the distal right tibia.
--- NOTE | 2021-01-19 13:36 | ANE.PACU2 ---
Inpatient post-anesthesia follow up: Airway intact: Yes Vital signs: Temperature 98.8 F Pulse Rate [Right Radial] 62 Pulse Rate 73 Respiratory Rate 15 Blood Pressure [Le ft Arm] 146/75 Blood Pressure 128/72 Pulse Oximetry 97 Oxygen Delivery Me thod Room Air Oxygen Flow Rate 97 Fraction of Inspir ed Oxygen Hydration adequate: Yes Nausea and vomiting: No Pain level: 3 Mental status: Baseline
[2021-01-19 17:58] LABS: Glucose Point of Care 168 mg/dL (70-110)
[2021-01-19] MEDS: morphine 4 mg/mL SDV 1 mL 2 MG IVP (19:16)
[2021-01-19] MEDS: apixaban 5 mg Tablet PO (20:18)
[2021-01-19 20:53] LABS: Glucose Point of Care 120 mg/dL (70-110)
[2021-01-20] VITALS (9 sets, daily range): BP systolic 128–180; BP diastolic 70–89; PULSE 60–76; RESP 17–18; TEMP 36.9–37.4; O2SAT 92–97
[2021-01-20] MEDS: HYDROcodone-acetaminophen 10-325 mg Tablet 1 TAB PO ×3 (02:08→17:47)
[2021-01-20] MEDS: cefepime 2,000 MG in sodium chloride 0.9% (plus) 50 ML 100 MG IV (03:12)
[2021-01-20] MEDS: atorvastatin 40 mg Tablet 80 MG PO (05:45)
[2021-01-20] MEDS: aspirin 81 mg EC Tablet PO (05:45)
[2021-01-20] MEDS: finasteride 5 mg Tablet PO (05:45)
[2021-01-20] MEDS: tamsulosin 0.4 mg Capsule PO (05:45)
[2021-01-20 06:35] LABS: Glucose Point of Care 140 mg/dL (70-110)
--- NOTE | 2021-01-20 08:56 | PM.PN ---
Subjective Subjective: Interval history: Charles reported he was doing okay when I entered the room. I discussed with him potential discharge today and he had many different concerns. Medications: Reviewed: Yes Vitals/I&O/Wt Last Vital Signs Temp 98.6 F 01/20/21 08:00 Pulse 75 01/20/21 08:52 Resp 18 01/20/21 08:52 BP 164/83 01/20/21 08:00 Pulse Ox 92 01/20/21 08:52 01/19/21 01/20/21 01/20/21 22:59 06:59 14:59 Intake Total 1940 / 1940 1350 / 3290 Output Total 450 / 1100 450 / 1550 700 / 700 Balance 1490 / 840 900 / 1740 -700 / -700 Physical Exam Narrative: EXAM NARRATIVE: General exam is no apparent distress Neck is supple no lymphadenopathy or thyromegaly Cardiovascular regular rate and rhythm without murmur, no S3 or S4 Lungs clear no wheezing or crackles Abdomen is soft with positive bowel sounds. No obvious organomegaly Extremities no cyanosis clubbing or edema. No significant cellulitis currently. External fixation device on right leg. Data : 01/19/21 04:40 01/19/21 04:40 Micro: Microbiology 01/18/21 17:28 Gram Stain - Final Ankle - Right Wound Culture - Preliminary Enterobacter cloacae 01/18/21 17:28 Anaerobic Culture - Preliminary Ankle - Right A&P Assessment and plan (1) Infection of lower extremity associated with hardware: With associated cellulitis. This is resolved Recent fracture right ankle with ORIF. Has infected hardware. Removal of hardware to occurred January 18 and external fixation placed Continue cefepime and vancomycin currently and awaiting cultures. Anaerobic culture is still preliminary. Other cultures growing Enterobacter, sensitive to cefepime and ceftriaxone. It is possible that he may be able to be discharged with IV ceftriaxone. PICC line today ESR prior to surgery 21, CRP 0.9 Status: Acute (2) Atrial flutter: History of atrial flutter. Appears to be in sinus rhythm currently and was on his last EKG from the hospital. Eliquis has been resumed Status: Acute Qualifiers: Atrial flutter type: typical Qualified Code(s): I48.3 - Typical atrial flutter (3) Diabetes: Sliding scale insulin Status: Acute (4) Hypertension: Continue home medications Status: Acute (5) Cerebrovascular accident: Continue Eliquis Continue statin Status: Acute Additional A&P Information Full code [place] will suffice for DVT prophylaxis In discussion with the patient today that potential discharge could occur he became distraught, reporting he needed multiple things and there was concern he would be able to take care of his leg at home with the external fixator. I again offered him [facility] facility care and he wants to consider this by talking with discharge planning. He is also extremely concerned about finding clothes to wear when he leaves. Attestations Medical Necessity Statement*: Needs continued hospital stay for IV antibiotics pending discharge to possibly skilled care. 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
[2021-01-20] MEDS: vancomycin 1,500 MG/300 ML PIGGYBACK 200 MG IV (08:58)
[2021-01-20] MEDS: dextrose 5%-sod chloride 0.45% 1,000 ML 100 ML IV ×2 (09:01→22:27)
[2021-01-20] MEDS: isosorbide mononitrate 20 mg Tablet 10 MG PO ×2 (09:10→17:43)
[2021-01-20] MEDS: apixaban 5 mg Tablet PO ×2 (09:10→22:27)
[2021-01-20] MEDS: metoprolol tartrate 50 mg Tablet PO ×2 (09:10→17:43)
[2021-01-20] MEDS: losartan 50 mg Tablet PO (09:11)
--- NOTE | 2021-01-20 09:19 | XR_ITS ---
WS: [id number] PORTABLE CHEST HISTORY: picc placement COMPARISON: 01/17/2021 Right-sided PICC line in good position with tip in the distal SVC. Lungs are clear and well expanded. No pleural effusion or pneumothorax. Cardiac size: Normal. Mediastinum/Aorta: Mild atherosclerosis aorta. No osseous abnormality seen. XR/XR chest 1V portable [id number] IMPRESSION: Satisfactory positioning RIGHT PICC line with no complication.
--- NOTE | 2021-01-20 12:33 | DCPLANNER ---
Pg 2 of IM updated and reviewed with pt. We may need to revisit as it's not obvious to this headline writer that he understands the IM. Copy provided.
[2021-01-20 13:10] LABS: Glucose Point of Care 181 mg/dL (70-110)
[2021-01-20] MEDS: cefTRIAXone 2,000 MG in sodium chloride 0.9% (plus) 50 ML 100 MG IV (14:28)
[2021-01-20 17:36] LABS: Glucose Point of Care 138 mg/dL (70-110)
--- NOTE | 2021-01-20 17:49 | P.PN_ITS ---
Subjective Subjective: Interval history: PT seen bedside, his life partner is present. Patient has reconsidered placement to [facility] facility. This was my recommendation in clinic prior to sending him to the hospital. Will be strict nonweightbearing to the right lower extremity given his body habitus and age this is difficult for him to manage without assistance he will also be requiring PICC line with IV antibiotics with daily infusions and would be best served with [facility] facility. Vitals/I&O/Wt Last Vital Signs Temp 98.4 F 01/20/21 15:37 Pulse 60 01/20/21 15:37 Resp 18 01/20/21 15:37 BP 151/89 01/20/21 15:37 Pulse Ox 97 01/20/21 15:37 01/20/21 01/20/21 01/20/21 06:59 14:59 22:59 Intake Total 1350 / 3290 290 / 290 Output Total 450 / 1550 700 / 700 425 / 1125 Balance 900 / 1740 -410 / -410 -425 / -835 Physical Exam Narrative: EXAM NARRATIVE: Patient is alert and oriented ?3 and in no acute distress. The following is a focused right lower extremity exam. VASCULAR: Dorsalis pedis and posterior tibial arteries palpable +2. Capillary refill time less than 3 seconds to the distal hallux bilaterally. Calf is supple and nontender proximally and distally. Mild edema at the operative site consi stent with postoperative course. NEUROLOGICAL: Protective sensation intact to light touch. DERMATOLOGICAL: Pin sites that external fixator at the tibia, calcaneus and first metatarsal are without irritation, erythema or drainage. No strikethrough bleeding at postoperative dressing lateral ankle. MUSCULOSKELETAL: Tenderness about the operative site consistent with postoperative course. No pain with posterior calf squeeze. Able to wiggle toes on command. Further musculoskeletal exam deferred due to postoperative state. Data : 01/19/21 04:40 01/19/21 04:40 Micro: Microbiology 01/18/21 17:28 Anaerobic Culture - Preliminary Ankle - Right 01/18/21 17:28 Gram Stain - Final Ankle - Right Wound Culture - Preliminary Enterobacter cloacae A&P Additional A&P Information 75-year-old diabetic male with infected hardware right ankle. -Status post hardware removal and application of external fixator right lower extremity. Aerobic cultures shows Enterobacter, anaerobic pending. -Plans for PICC line and 6 weeks of IV antibiotics -Plan for minimum 6 weeks with external fixator will perform serial x-rays to monitor bony healing. -Strict nonweightbearing to the right lower extremity and elevate right foot above the hip while at rest. -Medical management by hospitalist greatly appreciated, podiatry will follow. No further surgical intervention anticipated during this hospitalization, will likely remove external fixator in clinic 6 to 8 weeks from now. I am hopeful that he will be placed to [facility] facility he seems to be open to this idea now. I strongly recommended [facility] facility initially and he was resistant. Patient okay for discharge/transfer from podiatry standpoint. Will follow up with podiatry weekly. Follow-up scheduled in podiatry clinic January 24, [address] Islas D.P.M. cell phone [phone]. 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
--- NOTE | 2021-01-20 17:52 | PC.NURSE ---
Patient upset due to terminal clerk med status, PT got patient up to chair today for about an hour and had to use a laron lift and extra help just to accomplish that goal. Plan is for patient to go to a jail of his choice for rehab for 2 months until his internal fixator is ready to come off. Dressing changes are done every other day at this time on him. Pain seems to be fairly well managed and he does not seem to complain of it too often. He has good sensation and a pulse in his foot. Patient seemed pleased after bath and happy he has a visitor at bedside but does not have much of an appetite at this time. Incision site looks good minimal drainage and redness improved.
[2021-01-20 20:26] LABS: Glucose Point of Care 182 mg/dL (70-110)
[2021-01-21] VITALS (10 sets, daily range): BP systolic 150–194; BP diastolic 63–86; PULSE 61–82; RESP 16–18; TEMP 36.9–37.2; O2SAT 94–98
[2021-01-21] MEDS: HYDROcodone-acetaminophen 10-325 mg Tablet 1 TAB PO ×2 (00:49→21:13)
[2021-01-21] MEDS: aspirin 81 mg EC Tablet PO (05:45)
[2021-01-21] MEDS: tamsulosin 0.4 mg Capsule PO (05:45)
[2021-01-21] MEDS: atorvastatin 40 mg Tablet 80 MG PO (05:45)
[2021-01-21] MEDS: metoprolol tartrate 50 mg Tablet PO ×2 (05:45→17:51)
[2021-01-21] MEDS: isosorbide mononitrate 20 mg Tablet 10 MG PO ×2 (05:46→17:50)
[2021-01-21] MEDS: finasteride 5 mg Tablet PO (05:46)
[2021-01-21 06:58] LABS: Glucose Point of Care 119 mg/dL (70-110)
[2021-01-21 07:48] LABS: Basophils % 0.4 %; Eosinophils # 0.2 10^3/uL (0.0-0.8); Eosinophils % 3.7 %; Hematocrit 36.2 % (42.0-52.0); Hemoglobin 12.3 g/dL (11.7-16.6); Lymphocytes # 1.3 10^3/uL (0.8-4.8); Lymphocytes % 28.8 %; Mean Corpuscular Hemoglobin 29.9 pg (28.0-34.0); Mean Corpuscular Volume 88.1 fL (80-94); Mean Platelet Volume 11.4 fL (7.4-10.4); Monocytes # 0.4 10^3/uL (0.2-0.9); Monocytes % 8.3 %; Neutrophils # 2.68 10^3/uL (1.8-7.7); Neutrophils % 58.6 %; Nucleated Red Blood Cells % 0 %; Platelet Count 207 10^3/cmm (130-400); Red Blood Count 4.11 10^6/uL (4.1-5.3); White Blood Count 4.6 10^3/uL (4.0-10.0)
[2021-01-21 09:10] LABS: Anion Gap 13.4 (5-19); Blood Urea Nitrogen 10 mg/dL (8-23); Calcium 8.4 mg/dL (8.5-10.5); Carbon Dioxide 23 mmol/L (22-29); Chloride 104 mmol/L (98-107); Glucose 121 mg/dL (65-115); Osmolality Calculated 284 mOsm/kg (285-295); Potassium 3.4 mmol/L (3.5-5.1); Sodium 137 mmol/L (136-145)
[2021-01-21] MEDS: losartan 50 mg Tablet PO (10:21)
[2021-01-21] MEDS: apixaban 5 mg Tablet PO ×2 (10:22→21:11)
[2021-01-21 10:57] LABS: Glucose Point of Care 161 mg/dL (70-110)
--- NOTE | 2021-01-21 11:36 | P.PN_ITS ---
Subjective Subjective: Interval history: Patient seen bedside this morning doing well. Denies any pain at the right lower extremity. Discussed his ability to transfer with our physical therapist this morning patient demonstrated difficulty and confusion with his right lower extremity he kept trying to stand on it, physical therapy struggled to keep him compliant with nonweightbearing status and patient became frustrated. Awaiting acceptance to retirement facility. Patient denies any subjective nausea, vomiting, fever, chills, shortness of breath or chest pain. Vitals/I&O/Wt Last Vital Signs Temp 98.5 F 01/21/21 11:21 Pulse 65 01/21/21 11:21 Resp 18 01/21/21 11:21 BP 150/63 01/21/21 11:21 Pulse Ox 95 01/21/21 11:21 01/20/21 01/21/21 01/21/21 22:59 06:59 14:59 Intake Total 1300 / 1590 Output Total 1245 / 1945 535 / 2480 470 / 470 Balance 55 / -355 -535 / -890 -470 / -470 Physical Exam Narrative: EXAM NARRATIVE: Patient is alert and oriented ?3 and in no acute distress. The following is a focused right lower extremity exam. VASCULAR: Dorsalis pedis and posterior tibial arteries palpable +2. Capillary refill time less than 3 seconds to the distal hallux bilaterally. Calf is supple and nontender proximally and distally. Mild edema at the operative site consistent with postoperative course. NEUROLOGICAL: Protective sensation intact to light touch. DERMATOLOGICAL: Pin sites that external fixator at the tibia, calcaneus and first metatarsal are without irritation, erythema or drainage. No strikethrough bleeding at postoperative dressing lateral ankle. MUSCULOSKELETAL: Tenderness about the operative site consistent with postoperative course. No pain with posterior calf squeeze. Able to wiggle toes on command. Further musculoskeletal exam deferred due to postoperative state. Data : 01/21/21 06:00 01/21/21 06:00 Micro: Microbiology 01/18/21 17:28 Anaerobic Culture - Preliminary Ankle - Right 01/18/21 17:28 Gram Stain - Final Ankle - Right Wound Culture - Preliminary Enterobacter cloacae A&P Additional A&P Information 75-year-old diabetic male with infected hardware right ankle. -Status post hardware removal and application of external fixator right lower extremity. Aerobic cultures shows Enterobacter, anaerobic pending. -Plans for PICC line and 6 weeks of IV antibiotics -Plan for minimum 6 weeks with external fixator will perform serial x-rays to monitor bony healing. -Strict nonweightbearing to the right lower extremity and elevate right foot above the hip while at rest. -Medical management by hospitalist greatly appreciated, podiatry will follow. No further surgical intervention anticipated during this hospitalization, will likely remove external fixator in clinic 6 to 8 weeks from now. I am hopeful that he will be placed to retirement facility he seems to be open to this idea now. I strongly recommended retirement facility initially and he was resistant. Patient okay for discharge/transfer from podiatry standpoint. Will follow up with podiatry weekly. Follow-up scheduled in podiatry clinic January 24, [address] Goodman Olson.P.M. cell phone [phone]. 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
[2021-01-21] MEDS: cefTRIAXone 2,000 MG in sodium chloride 0.9% (plus) 50 ML 100 MG IV (16:48)
[2021-01-21 17:05] LABS: Glucose Point of Care 198 mg/dL (70-110)
--- NOTE | 2021-01-21 17:11 | P.PN_ITS ---
Subjective Subjective: Interval history: No new complaints, PICC line placed yesterday, awaiting discharge to SNF. Hemodynamically stable. 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 This is resolved Recent fracture right ankle with ORIF. Has infected hardware. Removal of hardware to occurred January 18 and external fixation placed Antibiotics narrowed to ceftriaxone 2 g IV daily with identification of Enterobacter. PICC line today ESR prior to surgery 21, CRP 0.9 Status: Acute (2) Atrial flutter: History of atrial flutter. Appears to be in sinus rhythm currently and was on his last EKG from the hospital. Eliquis has been resumed Status: Acute Qualifiers: Atrial flutter type: typical Qualified Code(s): I48.3 - Typical atrial flutter (3) Diabetes: Sliding scale insulin Status: Acute (4) Hypertension: Continue home medications Status: Acute (5) Cerebrovascular accident: Continue Eliquis Continue statin Status: Acute Additional A&P Information Full code Eliquis will suffice for DVT prophylaxis Disposition awaiting discharge to SNF. Attestations 2 Medical Necessity Statement*: Awaiting discharge to SNF. 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
[2021-01-21] MEDS: polyethylene glycol 3350 Pkt 17 gm PO (17:51)
[2021-01-21] MEDS: cyclobenzaprine 10 mg Tablet PO (21:13)
[2021-01-22] VITALS (9 sets, daily range): BP systolic 121–190; BP diastolic 71–94; PULSE 54–90; RESP 16–18; TEMP 36.8–37.2; O2SAT 92–98
[2021-01-22] MEDS: dextrose 5%-sod chloride 0.45% 1,000 ML 100 ML IV (03:27)
--- NOTE | 2021-01-22 04:10 | PC.NURSE ---
PICC dressing changed using sterile procedure. Patient tolerated well.
[2021-01-22] MEDS: tamsulosin 0.4 mg Capsule PO (06:09)
[2021-01-22] MEDS: atorvastatin 40 mg Tablet 80 MG PO (06:09)
[2021-01-22] MEDS: aspirin 81 mg EC Tablet PO (06:09)
[2021-01-22] MEDS: finasteride 5 mg Tablet PO (06:09)
[2021-01-22 06:24] LABS: Glucose Point of Care 151 mg/dL (70-110)
[2021-01-22] MEDS: metoprolol tartrate 50 mg Tablet PO ×2 (08:19→16:55)
[2021-01-22] MEDS: isosorbide mononitrate 20 mg Tablet 10 MG PO ×2 (08:19→16:54)
[2021-01-22] MEDS: losartan 50 mg Tablet PO (08:19)
[2021-01-22] MEDS: apixaban 5 mg Tablet PO ×2 (08:20→20:58)
[2021-01-22] MEDS: polyethylene glycol 3350 Pkt 17 gm PO (08:25)
--- NOTE | 2021-01-22 08:37 | PC.NURSE ---
PICC LINE PICC LINE TO RIGHT FA NOTED TO BE INTACT YET PT STATES THAT ARM HURTS - NOTED APPROX NICKEL SIZED AREA BELOW PICC TO APPEAR RAW - POSSIBLY FROM RUBBING OF CAP - WILL MONITOR AND APPLY BAND AID
--- NOTE | 2021-01-22 10:49 | PC.NURSE ---
PT UP WITH PT X2 ASSIST TO CHAIR - MAYELA BETTER ACCORDING TO MICHELLE, PT - PER PT - PT CAN NOW BE TRANSFERRED WITHOUT MINA USING X2 ASSIST WITH CONSTANT VERBAL REMINDER NOT TO BEAR WEIGHT TO EXTERNAL FIXATOR
[2021-01-22 11:04] LABS: Glucose Point of Care 193 mg/dL (70-110)
[2021-01-22] MEDS: HYDROcodone-acetaminophen 10-325 mg Tablet 1 TAB PO ×2 (11:13→20:58)
[2021-01-22] MEDS: cefTRIAXone 2,000 MG in sodium chloride 0.9% (plus) 50 ML 100 MG IV (12:30)
[2021-01-22] MEDS: magnesium citrate Btl 296 mL PO (13:43)
--- NOTE | 2021-01-22 16:06 | PC.NURSE ---
RETURNED TO BED RETURNED TO BED X2 STAFF MEMBERS - MAYELA WELL - RIGHT LEG ELEVATED ON PILLOWS - FAMILY AT SIDE
--- NOTE | 2021-01-22 16:43 | PM.PN ---
Subjective Subjective: Interval history: No new complaints today, worked with physical therapy. Transferred from bed to chair. 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 This is resolved Recent fracture right ankle with ORIF. Has infected hardware. Removal of hardware to occurred January 18 and external fixation placed Antibiotics narrowed to ceftriaxone 2 g IV daily with identification of Enterobacter. PICC line placement ESR prior to surgery 21, CRP 0.9 Status: Acute (2) Atrial flutter: History of atrial flutter. Appears to be in sinus rhythm currently and was on his last EKG from the hospital. Eliquis has been resumed Status: Acute Qualifiers: Atrial flutter type: typical Qualified Code(s): I48.3 - Typical atrial flutter (3) Diabetes: Sliding scale insulin Status: Acute (4) Hypertension: Continue home medications Status: Acute (5) Cerebrovascular accident: Continue Eliquis Continue statin Status: Acute Additional A&P Information Discontinue IV fluids Full code Eliquis will suffice for DVT prophylaxis Disposition awaiting discharge to SNF. 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
[2021-01-22 16:46] LABS: Glucose Point of Care 189 mg/dL (70-110)
[2021-01-22] MEDS: cyclobenzaprine 10 mg Tablet PO (16:54)
--- NOTE | 2021-01-22 18:11 | PC.NURSE ---
UP TO BSC UP TO BSC - MAYELA FAIR- RETURNED TO BED AFTER LARGE BM - PT NEEDS CONSTANT REMINDER X3 STAFF NOT TO BEAR WEIGHT ON RIGHT EXTERNAL FIXATOR - LEFT LATERAL SIDE OF RIGHT FOOT - NOTED TO HAVE SMALL AMOUNT OF BLEEDING AROUND FRONT FIXATOR - PER STAFF
[2021-01-22 21:49] LABS: Glucose Point of Care 166 mg/dL (70-110)
[2021-01-23] VITALS (9 sets, daily range): BP systolic 130–182; BP diastolic 71–84; PULSE 58–87; RESP 16–18; TEMP 36.9–37.5; O2SAT 93–97
[2021-01-23] MEDS: aspirin 81 mg EC Tablet PO (06:13)
[2021-01-23] MEDS: atorvastatin 40 mg Tablet 80 MG PO (06:13)
[2021-01-23] MEDS: tamsulosin 0.4 mg Capsule PO (06:13)
[2021-01-23] MEDS: finasteride 5 mg Tablet PO (06:13)
[2021-01-23 07:02] LABS: Glucose Point of Care 129 mg/dL (70-110)
--- NOTE | 2021-01-23 07:44 | XRR_ITS ---
PROCEDURE INFORMATION: Exam: XR Right Foot Exam date and time: 01/23/2021 7:49 AM Age: 75 years old Clinical indication: Screening exam; PT stood on his external fixator; Prior surgery TECHNIQUE: Imaging protocol: XR Right foot. Views: 3 or more views. COMPARISON: CR XR ankle RT min 3V* [id number] 01/19/2021 1:51 PM FINDINGS: Bones/joints: Horner-neck deformities at the level of the metatarsal phalangeal joints. Question prior trauma at the base of the 5th metatarsal External fixator via the calcaneus and likely the 1st metatarsal. Soft tissues: Normal. XR/XR foot RT min 3V* [id number] IMPRESSION: External fixators. No acute process.
--- NOTE | 2021-01-23 07:44 | XRR_ITS ---
PROCEDURE INFORMATION: Exam: XR Right Ankle Exam date and time: 01/23/2021 7:49 AM Age: 75 years old Clinical indication: Device placement; Other: Surgery follow up; Prior surgery; Additional info: PT stood on his external fixator TECHNIQUE: Imaging protocol: XR Right ankle. Views: 3 or more views. COMPARISON: CR XR ankle RT min 3V* [id number] 01/19/2021 1:51 PM FINDINGS: Bones/joints: Surgical clips in the soft tissues adjacent to the mildly displaced obliquely oriented distal fibular diaphyseal fracture. Prior removal of the surgical instrumentation. Two surgical screws stabilize the medial malleolus. Findings are stable from the previous exam. XR/XR ankle RT min 3V* [id number] IMPRESSION: Surgical clips in the soft tissues adjacent to the mildly displaced obliquely oriented distal fibular diaphyseal fracture. Prior removal of the surgical instrumentation. Two surgical screws stabilize the medial malleolus. Findings are stable from the previous exam.
[2021-01-23] MEDS: apixaban 5 mg Tablet PO ×2 (08:34→19:59)
[2021-01-23] MEDS: losartan 50 mg Tablet PO (08:34)
[2021-01-23] MEDS: metoprolol tartrate 50 mg Tablet PO ×2 (08:34→17:30)
[2021-01-23] MEDS: isosorbide mononitrate 20 mg Tablet 10 MG PO ×2 (08:35→17:30)
[2021-01-23] MEDS: polyethylene glycol 3350 Pkt 17 gm PO (08:35)
[2021-01-23 10:38] LABS: Glucose Point of Care 170 mg/dL (70-110)
--- NOTE | 2021-01-23 11:21 | P.PN_ITS ---
Subjective Subjective: Interval history: Patient was seen and examined this morning.No acute event overnight.No am labs. Medications: Reviewed: Yes Vitals/I&O/Wt Last Vital Signs Temp 98.8 F 01/23/21 07:43 Pulse 87 01/23/21 08:30 Resp 18 01/23/21 08:30 BP 152/79 01/23/21 08:34 Pulse Ox 94 01/23/21 08:30 01/22/21 01/23/21 01/23/21 22:59 06:59 14:59 Intake Total 1290 / 2130 Output Total 525 / 825 475 / 1300 300 / 300 Balance 765 / 1305 -475 / 830 -300 / -300 Physical Exam Const: COMMON NORMALS: patient oriented x3 HENMT: COMMON NORMALS: normocephalic and atraumatic HEAD & SCALP: normocephalic and atraumatic Resp: COMMON NORMALS: clear to auscultation bilaterally AUSCULTATION: clear to auscultation bilaterally Cardio: COMMON NORMALS: regular rate, regular rhythm, S1 normal heart sound present, S2 normal heart sound present, No gallops present (Cardio), No murmurs present (Cardio), No rub (Cardio) and Peripheral pulses 2+ throughout RATE: regular rate RHYTHM: regular rhythm HEART SOUNDS: S1 normal heart sound present and S2 normal heart sound present PERIPHERAL PULSES: Peripheral pulses 2+ throughout GI: COMMON NORMALS: Normal to inspection, nondistended, normoactive bowel sounds present, Soft to palpation, non-tender, No hepatosplenomegaly present and no masses AUSCULTATION: Yes normoactive bowel sounds PALPATION: Yes Soft to palpation and Yes No hepatosplenomegaly present RECTAL EXAM: Yes deferred Extremity: NARRATIVE EXTREMITY EXAM: Extremity right lower extremity external fixator in place. 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 This is resolved Recent fracture right ankle with ORIF. Has infected hardware. Removal of hardware to occurred January 18 and external fixation placed Antibiotics narrowed to ceftriaxone 2 g IV daily with identification of Enterobacter. PICC line placement ESR prior to surgery 21, CRP 0.9 Status: Acute (2) Atrial flutter: History of atrial flutter. Appears to be in sinus rhythm currently and was on his last EKG from the hospital. Eliquis has been resumed Status: Acute Qualifiers: Atrial flutter type: typical Qualified Code(s): I48.3 - Typical atrial flutter (3) Diabetes: Sliding scale insulin Status: Acute (4) Hypertension: Continue home medications Status: Acute (5) Cerebrovascular accident: Continue Eliquis Continue statin Status: Acute Additional A&P Information Full code Eliquis will suffice for DVT prophylaxis Disposition awaiting discharge to SNF. Attestations Medical Necessity Statement*: Patient is currently awaiting placement to SNF. 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
--- NOTE | 2021-01-23 12:54 | P.PN_ITS ---
Subjective Subjective: Interval history: Patient seen bedside this morning, continues to have difficulty transferring to bedside commode and difficulty being compliant with nonweightbearing status to the right lower extremity. Had an incident yesterday where he tried to get up on his own without assistance to go to the restroom and put weight on his external fixator on the right lower extremity states that there was some bleeding at the first metatarsal pin. Patient denies any subjective nausea, vomiting, fever, chills, shortness of breath or chest pain. Vitals/I&O/Wt Last Vital Signs Temp 98.8 F 01/23/21 07:43 Pulse 87 01/23/21 08:30 Resp 18 01/23/21 08:30 BP 152/79 01/23/21 08:34 Pulse Ox 94 01/23/21 08:30 01/22/21 01/23/21 01/23/21 22:59 06:59 14:59 Intake Total 1290 / 2130 Output Total 525 / 825 475 / 1300 300 / 300 Balance 765 / 1305 -475 / 830 -300 / -300 Physical Exam Narrative: EXAM NARRATIVE: Patient is alert and oriented ?3 and in no acute distress. The following is a focused right lower extremity exam. VASCULAR: Dorsalis pedis and posterior tibial arteries palpable +2. Capillary refill time less than 3 seconds to the distal hallux bilaterally. Calf is supple and nontender proximally and distally. Mild edema at the operative site consistent with postoperative course. NEUROLOGICAL: Protective sensation intact to light touch. DERMATOLOGICAL: Pin sites that external fixator at the tibia, calcaneus and first metatarsal are without irritation, erythema or drainage. No strikethrough bleeding at postoperative dressing lateral ankle. No active bleeding at the right foot first metatarsal pin. MUSCULOSKELETAL: Tenderness about the operative site consistent with postoperative course. No pain with posterior calf squeeze. Able to wiggle toes on command. Further musculoskeletal exam deferred due to postoperative state. Data : 01/21/21 06:00 01/21/21 06:00 Micro: Microbiology 01/18/21 17:28 Anaerobic Culture - Preliminary Ankle - Right 01/17/21 10:43 Blood Culture - Final Blood NO GROWTH AFTER 5 DAYS 01/17/21 10:40 Blood Culture - Final Blood NO GROWTH AFTER 5 DAYS 01/18/21 17:28 Gram Stain - Final Ankle - Right Wound Culture - Final Enterobacter cloacae Acinetobacter baumannii/haemol A&P Additional A&P Information 75-year-old diabetic male with infected hardware right ankle. -Status post hardware removal and application of external fixator right lower extremity. Aerobic cultures shows Enterobacter, anaerobic pending. -Plans for PICC line and 6 weeks of IV antibiotics -Plan for minimum 6 weeks with external fixator will perform serial x-rays to monitor bony healing. -Strict nonweightbearing to the right lower extremity and elevate right foot above the hip while at rest. -Medical management by hospitalist greatly appreciated, podiatry will follow. No further surgical intervention anticipated during this hospitalization, will likely remove external fixator in clinic 6 to 8 weeks from now. I am hopeful that he will be placed to retirement facility he seems to be open to this idea now. I strongly recommended retirement facility initially and he was resistant. Patient okay for discharge/transfer from podiatry standpoint. Follow-up scheduled in podiatry clinic January 24, [address] Goodman Olson.P.M. cell phone [phone]. 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
[2021-01-23] MEDS: cefTRIAXone 2,000 MG in sodium chloride 0.9% (plus) 50 ML 100 MG IV (13:33)
[2021-01-23 16:50] LABS: Glucose Point of Care 211 mg/dL (70-110)
[2021-01-23 17:10] LABS: Glucose Point of Care 115 mg/dL (70-110)
[2021-01-23] MEDS: HYDROcodone-acetaminophen 10-325 mg Tablet 1 TAB PO (19:56)
[2021-01-23 20:59] LABS: Glucose Point of Care 132 mg/dL (70-110)
[2021-01-24 02:27] LABS: Basophils % 0.2 %; Eosinophils # 0.1 10^3/uL (0.0-0.8); Eosinophils % 2.5 %; Hematocrit 35.1 % (42.0-52.0); Hemoglobin 11.8 g/dL (11.7-16.6); Lymphocytes # 1.5 10^3/uL (0.8-4.8); Lymphocytes % 31.5 %; Mean Corpuscular HGB Conc 33.6 g/dL (30.0-36.0); Mean Corpuscular Hemoglobin 29.6 pg (28.0-34.0); Mean Platelet Volume 9.6 fL (7.4-10.4); Monocytes # 0.4 10^3/uL (0.2-0.9); Monocytes % 8.6 %; Neutrophils # 2.78 10^3/uL (1.8-7.7); Neutrophils % 56.8 %; Nucleated Red Blood Cells % 0 %; Platelet Count 222 10^3/cmm (130-400); Red Blood Count 3.99 10^6/uL (4.1-5.3); Red Cell Distribution Width 13.1 % (12.1-15.1); White Blood Count 4.9 10^3/uL (4.0-10.0)
[2021-01-24 02:43] LABS: Anion Gap 10.7 (5-19); Blood Urea Nitrogen 17 mg/dL (8-23); Calcium 8.3 mg/dL (8.5-10.5); Carbon Dioxide 27 mmol/L (22-29); Chloride 101 mmol/L (98-107); Glucose 119 mg/dL (65-115); Osmolality Calculated 283 mOsm/kg (285-295); Potassium 3.7 mmol/L (3.5-5.1); Sodium 135 mmol/L (136-145)
[2021-01-24 04:00] VITALS: BP 185/87; PULSE 67; RESP 18; TEMP 37.2; O2SAT 96
[2021-01-24] MEDS: finasteride 5 mg Tablet PO (06:02)
[2021-01-24] MEDS: tamsulosin 0.4 mg Capsule PO (06:02)
[2021-01-24] MEDS: aspirin 81 mg EC Tablet PO (06:02)
[2021-01-24] MEDS: atorvastatin 40 mg Tablet 80 MG PO (06:02)
[2021-01-24 06:37] LABS: Glucose Point of Care 122 mg/dL (70-110)
[2021-01-24 07:36] VITALS: BP 186/89; PULSE 81; RESP 18; TEMP 37.2; O2SAT 97
--- NOTE | 2021-01-24 08:27 | DCPLANNER ---
Pg 2 of IM updated and reviewed with pt. No questions, copy provided.
[2021-01-24] MEDS: isosorbide mononitrate 20 mg Tablet 10 MG PO (08:30)
[2021-01-24 08:31] VITALS: BP 186/89
[2021-01-24] MEDS: losartan 50 mg Tablet PO (08:31)
[2021-01-24] MEDS: metoprolol tartrate 50 mg Tablet PO (08:31)
[2021-01-24] MEDS: apixaban 5 mg Tablet PO (08:31)
--- NOTE | 2021-01-24 10:12 | P.DS_ITS ---
Discharge Providers Date of Admission: 01/17/21 15:00 Date of Discharge: January 24, 2021 Attending Provider at Admission: Carlos A Rao MD Attending Provider at Discharge: Chilo Faulkner MD Diagnoses at Discharge Discharge Diagnosis (1) Infection of lower extremity associated with hardware: Status: Acute (2) Atrial flutter: Status: Chronic Qualifiers: Atrial flutter type: typical Qualified Code(s): I48.3 - Typical atrial flutter (3) Diabetes: Status: Chronic (4) Hypertension: Status: Chronic (5) Cerebrovascular accident: Status: Chronic Reason for Visit Reason for Visit: R ANKLE INJURY, SENT FROM DR. ISLAS Hospital Course Hospital Course 75 year old male with PMH of CVA, A.flutter/fib,HTN , DM ,who presented to the emergency department via podiatry for infected hardware right ankle. He has not improved, with Bactrim as an outpatient. He has been having drainage.On admission he denied any fever, chills, recently he was also admitted for ankle fracture post fall s/p ORIF.He was admitted for the management of Infection of lower extremity associated with hardware: With associated cellulitis. and was initially kept on broard spectrum Abxs, which was later switched to ceftriaxone 2 g IV daily with identification of Enterobacter and will be continued for 6 weeks.PICC Line has been placed.Removal of hardware was done on January 18 and external fixation placed.He will continue to follow as outpatient.He will need weekly CBC as well as BMP. Patient responded well to the above medical management and was discharged in stable condition to SNF. Physical Exam Const: COMMON NORMALS: patient oriented x3 HENMT: COMMON NORMALS: normocephalic and atraumatic HEAD & SCALP: normocephalic and atraumatic Resp: COMMON NORMALS: clear to auscultation bilaterally AUSCULTATION: clear to auscultation bilaterally Cardio: COMMON NORMALS: regular rate, regular rhythm, S1 normal heart sound present, S2 normal heart sound present, No gallops present (Cardio), No murmurs present (Cardio), No rub (Cardio) and Peripheral pulses 2+ throughout RATE: regular rate RHYTHM: regular rhythm HEART SOUNDS: S1 normal heart sound present and S2 normal heart sound present PERIPHERAL PULSES: Peripheral pulses 2+ throughout GI: COMMON NORMALS: Normal to inspection, nondistended, normoactive bowel sounds present, Soft to palpation, non-tender, No hepatosplenomegaly present and no masses AUSCULTATION: Yes normoactive bowel sounds PALPATION: Yes Soft to palpation and Yes No hepatosplenomegaly present RECTAL EXAM: Yes deferred Extremity: NARRATIVE EXTREMITY EXAM: Extremity right lower extremity external fixator in place. Neuro: COMMON NORMALS: patient oriented x3 Discharge Data Data Completed and Pending: Completed Studies During Hospitalization Category Date Time Status XR ankle RT min 3 V* [id number] Routine Exams 01/18/21 13:48 Completed XR ankle RT min 3 V* [id number] Routine Exams 01/18/21 19:32 Completed XR ankle RT min 3 V* [id number] Routine Exams 01/19/21 13:27 Completed XR ankle RT min 3 V* [id number] Routine Exams 01/23/21 07:44 Completed XR chest 1V errol ble [id number] Routine Exams 01/20/21 09:19 Completed XR chest 1V errol ble [id number] Urgent Exams 01/17/21 10:18 Completed XR foot RT min 3V * [id number] Routine Exams 01/23/21 07:44 Completed Pending at discharge Category Date Time Status Anaerobic Culture Stat Lab 01/18/21 17:28 Results Basic Metabolic P mini AM LABS Lab 01/25/21 04:00 Ordered Labs from last 24 hours 01/24/21 01/24/21 01/24/21 06:29 02:18 02:18 WBC 4.9 RBC 3.99 L Hgb 11.8 Hct 35.1 L MCV 88.0 MCH 29.6 MCHC 33.6 RDW 13.1 Plt Count 222 MPV 9.6 Neut % (Auto) 56.8 Lymph % (Auto) 31.5 [place] % (Auto) 8.6 Eos % (Auto) 2.5 Baso % (Auto) 0.2 Neut # (Auto) 2.78 Lymph # (Auto) 1.5 [place] # (Auto) 0.4 Eos # (Auto) 0.1 Baso # (Auto) 0.0 Nucleated RBC % (a uto) 0 Nucleated RBCs # 0.0 Sodium 135 L Potassium 3.7 Chloride 101 Carbon Dioxide 27 Anion Gap 10.7 BUN 17 Creatinine 0.9 GFR Calculation Not Reportable Glucose 119 H POC Glucose 122 H Calculated Osmolal ity 283 L Calcium 8.3 L 01/23/21 01/23/21 01/23/21 20:43 16:45 10:28 WBC RBC Hgb Hct MCV MCH MCHC RDW Plt Count MPV Neut % (Auto) Lymph % (Auto) [place] % (Auto) Eos % (Auto) Baso % (Auto) Neut # (Auto) Lymph # (Auto) [place] # (Auto) Eos # (Auto) Baso # (Auto) Nucleated RBC % (a uto) Nucleated RBCs # Sodium Potassium Chloride Carbon Dioxide Anion Gap BUN Creatinine GFR Calculation Glucose POC Glucose 132 H 211 H 170 H Calculated Osmolal ity Calcium 01/21/21 20:21 WBC RBC Hgb Hct MCV MCH MCHC RDW Plt Count MPV Neut % (Auto) Lymph % (Auto) [place] % (Auto) Eos % (Auto) Baso % (Auto) Neut # (Auto) Lymph # (Auto) [place] # (Auto) Eos # (Auto) Baso # (Auto) Nucleated RBC % (a uto) Nucleated RBCs # Sodium Potassium Chloride Carbon Dioxide Anion Gap BUN Creatinine GFR Calculation Glucose POC Glucose 115 H Calculated Osmolal ity Calcium Vitals: Last Vital Signs Temp 98.9 F 01/24/21 07:36 Pulse 81 01/24/21 07:36 Resp 18 01/24/21 07:36 BP 186/89 01/24/21 08:31 Pulse Ox 97 01/24/21 07:36 Discharge Plan Discharge Patient Disposition: Home Condition: Stable Prescriptions: New ceftriaxone 2 gram recon soln 2 g IV DAILY 35 Days RF: 0 Continued apixaban 5 mg tablet 5 mg PO BID Qty: 60 RF: 5 isosorbide mononitrate 20 mg tablet 10 mg PO BID Qty: 30 RF: 5 Tylenol Extra Strength 500 mg Tablet 1,000 mg PO PRN RF: 0 ProAir HFA 90 mcg/actuation Hfa Aerosol Inhaler 2 puff INHALATION Q4H PRN (Reason: Shortness Of Breath) RF: 0 Proscar 5 mg Tablet 5 mg PO QAM RF: 0 melatonin 1 tab PO BEDTIME PRN (Reason: Sleep) RF: 0 atorvastatin 40 mg tablet 80 mg PO QAM RF: 0 Adult Low Dose Aspirin 81 mg tablet,delayed release (DR/EC) 81 mg PO QAM RF: 0 metoprolol tartrate 50 mg tablet 50 mg PO BID RF: 0 olmesartan 20 mg tablet 20 mg PO DAILY RF: 0 metformin 500 mg tablet 500 mg PO BID RF: 0 tamsulosin 0.4 mg capsule 0.4 mg PO QAM RF: 0 nitroglycerin 0.4 mg tablet, sublingual 0.4 mg sublingual PRN PRN (Reason: Chest Pain) RF: 0 hydrocodone-acetaminophen [[place]] 10-325 mg tablet 1 tab PO Q6H PRN (Reason: pain) Qty: 28 RF: 0 Discontinued doxycycline hyclate 100 mg capsule 100 mg PO BID RF: 0 Discharge Orders: Discharge Order (Routine); Ordered 01/24/21 Ordered By: Chilo Faulkner Referrals: [facility] [Other] Maxwell Islas DPM [Physician] - 4-7 days Discharge Diet: Diabetic Discharge Activity: Limit activity as instructed Patient Instructions: Ceftriaxone (Injection), Opioid Safety Discharge Attestations Time Spent in Discharge Care*: less than 30 min Specific Discharge Activities: educating patient, educating and/or supporting family/caregiver, discussing with classification case manager/social workers/dc planners, documenting/other paperwork and evaluating patient/reviewing data Status at Discharge: Cognitive status at discharge: cognitively intact , Behavioral status at discharge: cooperative , Functional status at discharge: other assisted ambulation Overall status at discharge: patient is back to baseline Quality Metrics Clinical Quality Measures During this hospital stay, did patient experience: None Coding Level of Care Code Acute [facility] DC note Diagnoses Infection of lower extremity associated with hardware T84.7XXA Atrial flutter I48.3 Atrial flutter type: typical Diabetes E11.9 Hypertension I10 Cerebrovascular accident I63.9
[2021-01-24 10:31] VITALS: BP 135/84
[2021-01-24 10:35] LABS: Glucose Point of Care 163 mg/dL (70-110)
--- NOTE | 2021-01-24 10:54 | PC.NURSE ---
REPORT CALLED TO [facility]. ALL QUESTIONS ANSWERED. PATIENT DRESSED AND READY.
[2021-01-24 11:30] VITALS: BP 135/84
== END 2021-01-24 11:15 | disposition skilled nursing facility (03) | DRG 464 ==
LOC: ER 11:29 → MEDSURG 13:56
PROVIDERS: Podiatrist Foot & Ankle Surgery; Student in an Organized Health Care Education/Training Program; Admitting Provider Internal Medicine; Emergency Provider Physician Assistant; Visit Provider Internal Medicine
PROC: 0SPF04Z Removal of Internal Fixation Device from Right Ankle Joint, Open Approach (ICD-10-PCS; principal; 2021-01-18 12:30)
PROC: 0SPF04Z Removal of Internal Fixation Device from Right Ankle Joint, Open Approach (ICD-10-PCS; 2021-01-18 12:30)
PROC: 0QS6XZZ Reposition Right Upper Femur, External Approach (ICD-10-PCS; principal; 2021-01-19 12:00)
DX: T84.69XA Infection and inflammatory reaction due to internal fixation device of other site, initial encounter (principal); L03.115 Cellulitis of right lower limb; I48.92 Unspecified atrial flutter; Y79.1 Therapeutic (nonsurgical) and rehabilitative orthopedic devices associated with adverse incidents; Z86.73 Personal history of transient ischemic attack (TIA), and cerebral infarction without residual deficits; S82.851D Displaced trimalleolar fracture of right lower leg, subsequent encounter for closed fracture with routine healing; X58.XXXD Exposure to other specified factors, subsequent encounter; E11.9 Type 2 diabetes mellitus without complications; I10 Essential (primary) hypertension; B96.89 Other specified bacterial agents as the cause of diseases classified elsewhere; Z79.82 Long term (current) use of aspirin; Z79.891 Long term (current) use of opiate analgesic
CPT/HCPCS: 36415; 36416; 36569; 36592; 71045; 73610; 73630; 76000; 80048; 80053; 80202; 81003; 82962; 83605; 85025; 85651; 86140; 87040; 87070; 87075; 87077; 87186; 87205; 96365; 96367; 96372; 97161; 97530; 99285; C1713; J0692; J0696; J1815; J2270; J2704; J3010; J3370; J3490; J7030; J7050; J7799

== ENCOUNTER → 2021-02-03 15:06 | Outpatient (BNVA) | payer MEDICARE, SELFPAY | PROVIDERS: Visit Provider Podiatrist Foot & Ankle Surgery | DX: Z98.890 Other specified postprocedural states (principal); S82.851A Displaced trimalleolar fracture of right lower leg, initial encounter for closed fracture; T81.31XA Disruption of external operation (surgical) wound, not elsewhere classified, initial encounter; X58.XXXA Exposure to other specified factors, initial encounter | CPT/HCPCS: 73610; 73630 ==

== ENCOUNTER → 2021-02-17 13:58 | Outpatient (BNVA) | payer MEDICARE, SELFPAY | PROVIDERS: PCP Physician Assistant Medical; Visit Provider Podiatrist Foot & Ankle Surgery | DX: Z98.890 Other specified postprocedural states (principal); T81.31XA Disruption of external operation (surgical) wound, not elsewhere classified, initial encounter; S82.851A Displaced trimalleolar fracture of right lower leg, initial encounter for closed fracture; X58.XXXA Exposure to other specified factors, initial encounter | CPT/HCPCS: 73610; 87635 ==

== ENCOUNTER 2021-02-23 05:39 | Day surgery (SDC) | payer MEDICARE, SELFPAY ==
[2021-02-22 13:46] VITALS: BMI 27.7
[2021-02-23] VITALS (7 sets, daily range): BP systolic 130–183; BP diastolic 65–92; PULSE 70–92; RESP 16–20; TEMP 36.1–36.6; O2SAT 98–100
[2021-02-23] MEDS: sodium chloride 0.9% 1,000 ML 30 ML IV (06:30)
--- NOTE | 2021-02-23 06:38 | W.PM.OPSUD ---
Surgery/Procedure H&P Update DATE OF PROCEDURE: February 23, 2021 DATE H&P PERFORMED: 02/17/21 H&P UPDATE INFORMATION: I have reviewed H&P completed within last 30 days, I have examined patient prior to procedure, No changes to prior documentation and H&P is in [facility] EMR on date indicated PREOP DIAGNOSIS: Right ankle fracture PLANNED PROCEDURE: Operation Date: 02/23/21 07:00 Proposed Procedures p Adjustment of external fixator right lower extremity [id number] Z91.19(Right) - Maxwell Islas DPM s possible open reduction internal fixation right ankle fracture.(Right) - Maxwell Islas DPM
--- NOTE | 2021-02-23 06:51 | ANES.PREANE2 ---
Pre-Anesthetic Assessment Pre-Anesthetic Assessment: Height/Weight: Height 1.98 m Weight 108.862 kg Temp Pulse Resp BP Pulse Ox 98 F 92 18 131/85 98 02/23/21 06:19 02/23/21 06:19 02/23/21 06:19 02/23/21 06:19 02/23/21 06:19 Preop Diagnosis: Right ankle fracture Proposed Procedure: Operation Date: 02/23/21 07:00 Proposed Procedures p Adjustment of external fixator right lower extremity 31334 [id number] Z91.19(Right) - Maxwell Islas DPM s possible open reduction internal fixation right ankle fracture.(Right) - Maxwell Islas DPM Was Beta Annette taken within 24 hours: Yes Last intake: Intake Last Liquid Date 02/22/21 Last Liquid Time 18:30 Last Solid Date 02/22/21 Last Solid Time 18:30 Social: Social History: No alcohol and No tobacco Exam: Pre-Anes Outpt Exam: alert, oriented x 3, clear to auscultation bilaterally and regular rate & rhythm Airway: Submandibular: WNL Cervical ROM: WNL MP: 2 Dentition: Chipped Additional comments: very poor dentition History/ROS: No significant history except as noted and No significant complaints Pulmonary: Pulmonary: None reported CV/HEM: CV/HEM: HTN Comments: A Flutter : : None reported Hepatic: Hepatic: None reported GI: GI: None reported Metabolic: Metabolic: DM Musc/skel: Musc/skel: None reported Neuropsych: Neuropsych: Dementia Anesthetic Plan: ASA status: 3 Anesthesia: Anesthesia Evaluation and General Risk of > 500 ml blood loss (7ml/kg in children): No PFSH Anesthesia PFSH: Medical History Atrial flutter Bimalleolar fracture of right ankle Cerebrovascular accident Chest pain Diabetes Hypertension 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
[2021-02-23 06:55] LABS: Glucose Point of Care 144 mg/dL (70-110)
--- NOTE | 2021-02-23 08:42 | XR_ITS ---
WS: [id number] Right ankle, 3 views, 02/23/2021 Clinical Data: post op Comparison: Right ankle, 02/17/2021. Findings: A lateral plate is fixed to the distal right fibula with multiple orthopedic screws. 2 oblique screws in the medial malleolus remain the same. There are subcutaneous surgical dina overlying the distal right fibula. XR/XR ankle RT 2V 16650 Impression: 1. Distal right fibular plate fixed with multiple orthopedic screws. 2. No change in oblique medial malleolar screws.
--- NOTE | 2021-02-23 17:56 | ANE.PACU2 ---
Inpatient post-anesthesia follow up: Airway intact: Yes Vital signs: Temperature 97.2 F Pulse Rate 70 Respiratory Rate 18 Blood Pressure 183/82 Pulse Oximetry 99 Oxygen Delivery Me thod Room Air Oxygen Flow Rate Fraction of Inspir ed Oxygen Hydration adequate: Yes Nausea and vomiting: No Pain level: 2 Mental status: Baseline
--- NOTE | 2021-02-26 21:35 | PM.OP ---
Operative Report Date of procedure: February 23, 2021 Pre-op Diagnosis: Right ankle fracture Post-op diagnosis: same Post-op Findings: Improved soft tissue quality and appropriate bone density and color right distal fibula. Procedure Done: Removal of external fixator right lower extremity. Open reduction internal fixation right ankle fracture. Implants: 2-0 Vicryl, 4-0 Vicryl, skin dina, one third tubular plate [place] and 3.5 mm locking and nonlocking screws [employer]. Ortho biologic from [employer] Pathology: none sent Surgeon: Maxwell Islas D.P.M. Apartment Maintenance Technician: Xiomara Anesthesia: General Estimated blood loss: Less than 10 mL Tourniquet time: See intraoperative documentation IV fluids: None Urine output: None Complications: None Findings: Improved soft tissue quality no acute signs of infection, right distal fibula had appropriate density and color, no purulence encountered, no surrounding erythema at the incision, no devitalized soft tissue. Condition: stable Disposition: PACU Brief History: History of noncompliance with weightbearing status, noncompliance with weightbearing status has been heavy he not only walked prematurely with original fixation he also walked on his external fixator. Following initial injury there was concern for altered mental status, he refused placement to usp at that time and was weightbearing given the additional edema associated with this he dehisced partially developed a wound of the lateral malleolus and subsequent infection. He was placed on a PICC line and continues to receive infusions of Rocephin with improvement of soft tissue quality. Inflammatory markers were significantly improved sed rate and CRP trended down nicely, normal white count. At this point recommending removal of external fixator with repeat internal fixation to further stabilize this distal fibular fracture. Risks include pain, bleeding, numbness, infection, delayed union, malunion, nonunion, hardware failure need for further surgical intervention, he is at risk for amputation given his noncompliance and diabetes. Patient n.p.o. since midnight, interviewed preoperatively by myself and informed consent signed by patient and myself. No guarantees written, expressed or implied he wishes to continue. Procedure: Under mild sedation the patient was brought to the operating room and placed on the operating table in supine position. Timeout was performed. Anesthesia was then administered by the anesthesia service. External fixator was removed from the right lower extremity. Well-padded pneumatic tourniquet applied to the right leg. Right lower extremity was then scrubbed, prepped and draped utilizing normal aseptic technique. Right foot was elevated and the Tourniquet inflated to 250 mmHg. Attention was directed to the lateral aspect of the right ankle where a linear longitudinal incision was was made over the previous cicatrix. Dissection was carried down through subcutaneous tissue to the layer of periosteum utilizing blunt and sharp technique. Care was taken to retract and preserve neurovascular and tendinous structures. All bleeders were ligated and cauterized as necessary. Soft tissue appeared viable without devitalized or necrosis of tissue. Bone was appropriate density and color. Periosteal incision was made and the fracture of the distal fibula was evacuated of his hematoma and flushed with saline solution. This was then packed with bio4 provided by [employer] as an Ortho biologic with ostial conductive and inductive properties. Fracture was then reduced into anatomic position at the length and out of rotation and fixated utilizing standard AO technique with a one third tubular plate and accommodation of 3.5 mm locking and nonlocking screws with excellent bony apposition and compression noted. Incision was once again flushed with saline solution and confirmed fracture reduction and fixation to be excellent all 3 planes utilizing fluoroscopy ankle mortise was not violated. This was congruent. Periosteum and subcutaneous tissue closed utilizing 2-0 Vicryl, subcutaneous tissue closed utilizing 4-0 Vicryl and skin closed utilizing dina and small area of deficit dressed with Primatrix this is an area where there was surgical wound and at the lateral malleolus there was an adequate soft tissue to close measuring 3 mm x 3 mm this dressed with Primatrix which was secured utilizing skin dina. Dressing then consisted of Adaptic, sterile 4 x 4, Kerlix, well-padded multilayer compressive splint with stirrup. Tourniquet was deflated and a prompt hyperemic response is noted to the distal digits of the right foot. Patient tolerated the procedure and anesthesia well and was transferred to the PACU with vital signs stable and vascular status intact. Following a period of postoperative monitoring he will be discharged home will continue once daily Rocephin infusion via PICC line and trend labs weekly. Will continue with IV antibiotics at least 2 weeks postoperatively. He is to remain strict nonweightbearing and elevate his right lower extremity above the hip at all times while resting. Will follow-up next week in clinic.
== END 2021-02-23 09:59 | disposition home or self-care (01) ==
PROVIDERS: PCP Physician Assistant Medical; Visit Provider Podiatrist Foot & Ankle Surgery
PROC: (CPT 20694; principal; 2021-02-23 07:00)
DX: S82.891A Other fracture of right lower leg, initial encounter for closed fracture (principal); X58.XXXA Exposure to other specified factors, initial encounter; I10 Essential (primary) hypertension; E11.9 Type 2 diabetes mellitus without complications; F03.90 Unspecified dementia, unspecified severity, without behavioral disturbance, psychotic disturbance, mood disturbance, and anxiety; Z86.73 Personal history of transient ischemic attack (TIA), and cerebral infarction without residual deficits
CPT/HCPCS: 20694; 27792; 36416; 73600; 82962; C1713; C1762; J0690; J2405; J2704; J3010; J3490; J7030

== ENCOUNTER → 2021-03-03 10:39 | Outpatient (BNVA) | payer MEDICARE, SELFPAY | PROVIDERS: PCP Physician Assistant Medical; Visit Provider Podiatrist Foot & Ankle Surgery | DX: Z98.890 Other specified postprocedural states (principal) | CPT/HCPCS: 73610 ==

== ENCOUNTER → 2021-03-09 09:51 | Outpatient (BNVA) | payer MEDICARE, SELFPAY | PROVIDERS: PCP Physician Assistant Medical; Visit Provider Podiatrist Foot & Ankle Surgery | DX: Z48.89 Encounter for other specified surgical aftercare (principal); S82.841D Displaced bimalleolar fracture of right lower leg, subsequent encounter for closed fracture with routine healing; X58.XXXD Exposure to other specified factors, subsequent encounter | CPT/HCPCS: 73610 ==

== ENCOUNTER → 2021-03-16 07:58 | Outpatient (BNVA) | payer MEDICARE, SELFPAY | PROVIDERS: PCP Physician Assistant Medical; Visit Provider Podiatrist Foot & Ankle Surgery | DX: Z48.89 Encounter for other specified surgical aftercare (principal); S82.844D Nondisplaced bimalleolar fracture of right lower leg, subsequent encounter for closed fracture with routine healing; X58.XXXD Exposure to other specified factors, subsequent encounter | CPT/HCPCS: 73610 ==

== ENCOUNTER → 2021-03-23 13:44 | Outpatient (BNVA) | payer MEDICARE, SELFPAY | PROVIDERS: PCP Physician Assistant Medical; Visit Provider Podiatrist Foot & Ankle Surgery | DX: S82.841A Displaced bimalleolar fracture of right lower leg, initial encounter for closed fracture (principal); X58.XXXA Exposure to other specified factors, initial encounter | CPT/HCPCS: 73610 ==

== ENCOUNTER 2021-03-23 15:09 | Outpatient (CLI) | payer MEDICARE, SELFPAY | END 2021-03-23 15:10 | disposition home or self-care (01) | LOC: SPT 15:10 | PROVIDERS: PCP Physician Assistant Medical; Visit Provider Podiatrist Foot & Ankle Surgery | DX: Z48.89 Encounter for other specified surgical aftercare (principal) | CPT/HCPCS: 97760; L4361 ==

== ENCOUNTER → 2021-04-06 09:14 | Outpatient (BNVA) | payer MEDICARE, SELFPAY | PROVIDERS: PCP Physician Assistant Medical; Visit Provider Podiatrist Foot & Ankle Surgery | DX: Z48.89 Encounter for other specified surgical aftercare (principal); Z98.890 Other specified postprocedural states | CPT/HCPCS: 73610 ==

== ENCOUNTER → 2021-04-20 09:00 | Outpatient (BNVA) | payer MEDICARE, SELFPAY | PROVIDERS: PCP Physician Assistant Medical; Visit Provider Podiatrist Foot & Ankle Surgery | DX: S82.841A Displaced bimalleolar fracture of right lower leg, initial encounter for closed fracture (principal); Z48.89 Encounter for other specified surgical aftercare; Z98.890 Other specified postprocedural states; X58.XXXA Exposure to other specified factors, initial encounter; Z46.89 Encounter for fitting and adjustment of other specified devices; M25.371 Other instability, right ankle | CPT/HCPCS: 73610; 97760; L1902 ==

== ENCOUNTER 2021-04-20 10:33 | Outpatient (CLI) | payer MEDICARE, SELFPAY | END 2021-04-20 10:34 | disposition home or self-care (01) | LOC: SPT 10:34 | PROVIDERS: PCP Physician Assistant Medical; Visit Provider Podiatrist Foot & Ankle Surgery | DX: Z46.89 Encounter for fitting and adjustment of other specified devices (principal); M25.371 Other instability, right ankle; S82.841D Displaced bimalleolar fracture of right lower leg, subsequent encounter for closed fracture with routine healing; X58.XXXD Exposure to other specified factors, subsequent encounter | CPT/HCPCS: 97760; L1902 ==

== ENCOUNTER → 2021-05-11 08:10 | Outpatient (BNVA) | payer MEDICARE, SELFPAY | PROVIDERS: PCP Physician Assistant Medical; Visit Provider Podiatrist Foot & Ankle Surgery | DX: Z48.89 Encounter for other specified surgical aftercare (principal); Z98.890 Other specified postprocedural states; S82.841A Displaced bimalleolar fracture of right lower leg, initial encounter for closed fracture; M25.373 Other instability, unspecified ankle; X58.XXXA Exposure to other specified factors, initial encounter | CPT/HCPCS: 73610 ==

== ENCOUNTER → 2021-06-06 13:03 | Outpatient (BNVA) | payer MEDICARE, SELFPAY | PROVIDERS: PCP Physician Assistant Medical; Visit Provider Podiatrist Foot & Ankle Surgery | DX: Z48.89 Encounter for other specified surgical aftercare (principal); S82.841D Displaced bimalleolar fracture of right lower leg, subsequent encounter for closed fracture with routine healing; W01.0XXD Fall on same level from slipping, tripping and stumbling without subsequent striking against object, subsequent encounter; E11.42 Type 2 diabetes mellitus with diabetic polyneuropathy | CPT/HCPCS: 73610 ==

== ENCOUNTER 2022-01-29 11:20 | Outpatient (CLI) | payer MEDICARE, SELFPAY | END 2022-01-29 11:21 | disposition home or self-care (01) | LOC: SPT 11:21 | PROVIDERS: PCP Physician Assistant Medical; Visit Provider Podiatrist Foot & Ankle Surgery | DX: Z46.89 Encounter for fitting and adjustment of other specified devices (principal); E11.42 Type 2 diabetes mellitus with diabetic polyneuropathy; S82.841D Displaced bimalleolar fracture of right lower leg, subsequent encounter for closed fracture with routine healing; X58.XXXD Exposure to other specified factors, subsequent encounter; L97.312 Non-pressure chronic ulcer of right ankle with fat layer exposed | CPT/HCPCS: 97760; L3030 ==